=== PATIENT | male | born 1960 | race Hispanic/Latino ===

== ENCOUNTER 2021-10-04 12:28 | Inpatient (IN) | payer MEDICAID ==
[2021-10-04] MEDS ORDERED: SODIUM CHLORIDE 0.9% 1000 ML 1,000 ML IV ONE ×2 (13:07→23:12)
--- NOTE | 2021-10-04 13:10 | Emergency Department Report ---
ED Shortness of Breath HPI - General Chief Complaint: Dyspnea/Respdistress Stated Complaint: SOB Time Seen by Provider: 10/04/21 12:51 Source: EMS, old records reviewed (no previous medical record for review) Mode of arrival: Stretcher Limitations: No Limitations - History of Present Illness Initial Comments: 60-year-old male with a past medical history of hypertension, alcohol abuse, atrial fibrillation, CHF, COPD with 2 L home oxygen use hypertension, hyperlipidemia, morbid obesity, and neuropathy presents to the hospital with acute shortness of breath and respiratory distress. History obtained from EMS. States that fire department was initially at the scene for shortness of breath reports a saturation of 86% on 2 L of oxygen. Report that patient did have a long oxygen cord. Patient stayed on nonrebreather at 8 L and was satting 92% upon EMS arrival. Upon EMS arrival they report that patient was in respiratory distress but seemed to improve and was able to speak was transported to the ambulance. Upon ED arrival patient is somnolent but arousable to tactile stimulation with moderate respiratory distress. History obtained from EMS as patient is unable to provide history at this time. EMS also states they came to the home yesterday due to shortness of breath the patient did not come to the hospital at that time. patient has a right arm PICC line that seems to be out. I am unable to contact the patient's . Her numbers not available and patient cannot recall the code to unlock his phone to obtain her number. Patient placed on BiPAP shortly after ED arrival Patient also has a history of COVID and previous tracheostomy as per EMS report - Related Data Home Medications Medication Instructions Recorded Confirmed Last Taken Albuterol Sulfate [Proair 90 mcg PO PRN 10/04/21 10/04/21 Unknown Respiclick] Aspirin [Aspirin BABY CHEW TAB] 81 mg PO QDAY 10/04/21 10/04/21 Unknown AtorvaSTATin [Lipitor] 40 mg PO QHS 10/04/21 10/04/21 Unknown Gabapentin 300 mg PO BID 10/04/21 10/04/21 Unknown Losartan [Cozaar] 25 mg PO QDAY 10/04/21 10/04/21 Unknown Metoprolol Succinate [Kapspargo 200 mg PO DAILY 10/04/21 10/04/21 Unknown Sprinkle] Rivaroxaban [Xarelto] 20 mg PO DAILY 10/04/21 10/04/21 Unknown Allergies Allergy/AdvReac Type Severity Reaction Status Date / Time No Known Allergies Allergy Unverified 10/04/21 12:35 ED Review of Systems ROS: Stated complaint: SOB Other details as noted in HPI Comment: Unobtainable due to pts medical conditions ED Past Medical Hx - Past Medical History Hx Hypertension: Yes Hx Congestive Heart Failure: Yes Hx COPD: Yes Hx HIV: No Additional medical history: history of COVID - Surgical History Additional Surgical History: Tracheostomy - Social History Smoking Status: Current Every Day Smoker - Medications Home Medications: Home Medications Medication Instructions Recorded Confirmed Last Taken Type Albuterol Sulfate [Proair 90 mcg PO PRN 10/04/21 10/04/21 Unknown History Respiclick] Aspirin [Aspirin BABY CHEW TAB] 81 mg PO QDAY 10/04/21 10/04/21 Unknown History AtorvaSTATin [Lipitor] 40 mg PO QHS 10/04/21 10/04/21 Unknown History Gabapentin 300 mg PO BID 10/04/21 10/04/21 Unknown History Losartan [Cozaar] 25 mg PO QDAY 10/04/21 10/04/21 Unknown History Metoprolol Succinate [[place] 200 mg PO DAILY 10/04/21 10/04/21 Unknown History Sprinkle] Rivaroxaban [Xarelto] 20 mg PO DAILY 10/04/21 10/04/21 Unknown History ED Physical Exam - General Limitations: No Limitations - Other Other exam information: General: Moderate distress, morbidly obese Head: Atraumatic Eyes: normal appearance ENT: Moist mucous membranes Neck: Normal appearance, no midline tenderness Chest: Tachypnea, no wheezes or rales CV: Irregular rhythm Abdomen: Soft, normal bowel sounds, nontender, nondistended, no rebound or guarding Back: Normal inspection Extremity: Bilateral edema with bilateral lower extremity bandages, bandages removed, pt with b/l lower extremity cellulitis with significant pitting edema. Patient has ulcerations between all of his toes on the right foot. Left great toe is infected as well as a wound with swelling area to the left anterior lower leg. Sutures in place. Diffuse lower extremity erythema Neuro: Drowsy but arousable to tactile stimulation and able to speak although difficult to understand. Equal handgrip and foot dorsiflexion. Psych: Appropriate behavior ED Course Vital Signs 10/04/21 10/04/2110/04/22 12:35 12:38 12:56 Temperature 97.7 F Pulse Rate 84 86 Respiratory 14 17 19 Rate Blood Pressure 82/48 93/59 Blood Pressure 82/48 [Left] O2 Sat by Pulse 96 96 99 Oximetry 10/04/21 10/04/21 10/04/21 13:29 13:55 14:01 Temperature Pulse Rate 88 83 84 Respiratory 15 15 16 Rate Blood Pressure Blood Pressure 101/58 105/55 [Left] O2 Sat by Pulse 97 97 Oximetry 10/04/21 10/04/21 10/04/21 14:02 14:08 14:15 Temperature Pulse Rate 83 76 Respiratory 22 15 Rate Blood Pressure 105/55 98/61 Blood Pressure 98/61 [Left] O2 Sat by Pulse 97 87 Oximetry 10/04/21 10/04/21 10/04/21 14:31 14:45 15:01 Temperature Pulse Rate 84 72 85 Respiratory 13 15 15 Rate Blood Pressure 104/57 106/48 99/54 Blood Pressure [Left] O2 Sat by Pulse 94 95 97 Oximetry 10/04/21 10/04/21 10/04/21 15:15 15:31 15:45 Temperature Pulse Rate 86 82 91 H Respiratory 17 16 17 Rate Blood Pressure 96/29 109/71 157/135 Blood Pressure [Left] O2 Sat by Pulse 94 88 88 Oximetry 10/04/21 10/04/21 10/04/21 16:01 16:11 16:15 Temperature 97.6 F Pulse Rate 84 86 Respiratory 16 15 Rate Blood Pressure 157/135 99/56 Blood Pressure [Left] O2 Sat by Pulse 95 96 Oximetry 10/04/21 10/04/21 10/04/21 16:31 16:35 16:45 Temperature Pulse Rate 77 88 85 Respiratory 16 22 13 Rate Blood Pressure 143/99 110/68 105/85 Blood Pressure [Left] O2 Sat by Pulse 83 L 95 96 Oximetry 10/04/21 10/04/21 10/04/21 17:00 17:01 17:15 Temperature 96.7 F L Pulse Rate 92 H 86 Respiratory 15 17 Rate Blood Pressure 106/73 98/74 Blood Pressure [Left] O2 Sat by Pulse 90 95 Oximetry 10/04/21 10/04/21 10/04/21 17:31 17:45 18:01 Temperature Pulse Rate 77 82 84 Respiratory 13 18 16 Rate Blood Pressure 110/68 129/112 129/112 Blood Pressure [Left] O2 Sat by Pulse 93 89 88 Oximetry 10/04/21 10/04/21 10/04/21 18:15 18:31 18:45 Temperature Pulse Rate 84 86 87 Respiratory 19 15 22 Rate Blood Pressure 107/70 90/61 152/94 Blood Pressure [Left] O2 Sat by Pulse 88 87 83 L Oximetry 10/04/21 10/04/21 10/04/21 19:15 19:45 20:01 Temperature Pulse Rate 89 Respiratory 19 17 20 Rate Blood Pressure 103/79 97/55 124/39 Blood Pressure [Left] O2 Sat by Pulse 94 Oximetry 10/04/21 10/04/21 10/04/21 20:10 20:15 20:31 Temperature 94.1 F L Pulse Rate 90 84 Respiratory 24 18 21 Rate Blood Pressure 143/76 128/70 Blood Pressure 128/70 [Left] O2 Sat by Pulse 96 97 Oximetry 10/04/21 10/04/21 10/04/21 20:45 21:00 21:01 Temperature 98.3 F Pulse Rate 97 H 93 H Respiratory 19 24 Rate Blood Pressure 114/47 124/105 Blood Pressure [Left] O2 Sat by Pulse Oximetry 10/04/21 10/04/21 10/04/21 21:15 21:31 21:45 Temperature Pulse Rate 93 H 94 H 93 H Respiratory 23 15 17 Rate Blood Pressure 133/95 118/88 114/56 Blood Pressure [Left] O2 Sat by Pulse Oximetry 10/04/21 10/04/21 10/04/21 21:47 22:01 22:31 Temperature Pulse Rate 90 91 H 94 H Respiratory 22 17 19 Rate Blood Pressure 114/56 108/39 97/72 Blood Pressure [Left] O2 Sat by Pulse 90 Oximetry 10/04/21 10/04/21 10/04/21 22:45 23:01 23:15 Temperature Pulse Rate 86 88 92 H Respiratory 14 15 18 Rate Blood Pressure 95/51 84/55 93/49 Blood Pressure [Left] O2 Sat by Pulse 87 Oximetry 10/04/21 10/04/21 10/05/21 23:31 23:45 00:01 Temperature Pulse Rate 87 86 85 Respiratory 18 24 22 Rate Blood Pressure 90/44 103/60 103/52 Blood Pressure [Left] O2 Sat by Pulse 86 92 95 Oximetry - Consultations Consultation #1: 10/04/21 14:40 case d/w Dr Osorio, health and physical education professor critical care/pulmonology. Rec abg in 1 hr and to have respiratory therapist call for result. 10/04/21 17:06 re-discussed repeat abg results with DR Osorio. will contact respiratory therapist to discuss bipap settings ED Medical Decision Making - Lab Data Result diagrams: 10/05/21 05:52 10/05/21 05:52 Lab Results 10/04/21 10/04/21 10/04/21 Range/Units 12:37 13:12 13:12 WBC 13.6 H (4.5-11.0) K/mm3 RBC 3.38 L (3.65-5.03) M/mm3 Hgb 9.7 L (11.8-15.2) gm/dl Hct 30.3 L (35.5-45.6) % MCV 90 (84-94) fl MCH 29 (28-32) pg MCHC 32 (32-34) % RDW 17.4 H (13.2-15.2) % Plt Count 456 H (140-440) K/mm3 Lymph % (Auto) 11.2 L (13.4-35.0) % [place] % (Auto) 11.6 H (0.0-7.3) % Eos % (Auto) 1.2 (0.0-4.3) % Baso % (Auto) 0.8 (0.0-1.8) % Lymph # (Auto) 1.5 (1.2-5.4) K/mm3 [place] # (Auto) 1.6 H (0.0-0.8) K/mm3 Eos # (Auto) 0.2 (0.0-0.4) K/mm3 Baso # (Auto) 0.1 (0.0-0.1) K/mm3 Seg Neutrophils % 75.2 H (40.0-70.0) % Seg Neutrophils # 10.2 H (1.8-7.7) K/mm3 PT 40.7 H (12.2-14.9) Sec. INR 3.58 H (0.87-1.13) APTT 43.9 H (24.2-36.6) Sec. ABG pH (7.350-7.450) pH Units ABG pCO2 mm Hg ABG pO2 (80.0-90.0) mm Hg ABG HCO3 (20.0-26.0) mmol/L ABG O2 Saturation (95.0-99.0) % ABG O2 Content (0.0-44) ABG Base Excess (-2.0-3.0) mmol/L ABG Hemoglobin (14.0-18.0) gm/dl ABG Carboxyhemoglobin (0.0-5.0) % ABG Methemoglobin (0.0-1.5) % Oxyhemoglobin (95.0-99.0) % FiO2 % Sodium (137-145) mmol/L Potassium (3.6-5.0) mmol/L Chloride (98-107) mmol/L Carbon Dioxide (22-30) mmol/L Anion Gap mmol/L BUN (9-20) mg/dL Creatinine (0.8-1.3) mg/dL Estimated GFR ml/min BUN/Creatinine Ratio % Glucose (75-100) mg/dL POC Glucose 112 H (70-105) mg/dL Calcium (8.4-10.2) mg/dL Magnesium (1.7-2.3) mg/dL Total Bilirubin (0.1-1.2) mg/dL AST (5-40) units/L ALT (7-56) units/L Alkaline Phosphatase (35-129) units/L Troponin T (0.00-0.029) ng/mL NT-Pro-B Natriuret Pep (0-900) pg/mL Total Protein (6.3-8.2) g/dL Albumin (3.9-5) g/dL Albumin/Globulin Ratio % Triglycerides (2-149) mg/dL Cholesterol (50-199) mg/dL LDL Cholesterol Direct (50-130) mg/dL HDL Cholesterol (40-59) mg/dL Cholesterol/HDL Ratio % 10/04/21 10/04/21 10/04/21 Range/Units 13:12 13:12 13:35 WBC (4.5-11.0) K/mm3 RBC (3.65-5.03) M/mm3 Hgb (11.8-15.2) gm/dl Hct (35.5-45.6) % MCV (84-94) fl MCH (28-32) pg MCHC (32-34) % RDW (13.2-15.2) % Plt Count (140-440) K/mm3 Lymph % (Auto) (13.4-35.0) % [place] % (Auto) (0.0-7.3) % Eos % (Auto) (0.0-4.3) % Baso % (Auto) (0.0-1.8) % Lymph # (Auto) (1.2-5.4) K/mm3 [place] # (Auto) (0.0-0.8) K/mm3 Eos # (Auto) (0.0-0.4) K/mm3 Baso # (Auto) (0.0-0.1) K/mm3 Seg Neutrophils % (40.0-70.0) % Seg Neutrophils # (1.8-7.7) K/mm3 PT (12.2-14.9) Sec. INR (0.87-1.13) APTT (24.2-36.6) Sec. ABG pH 7.254 L (7.350-7.450) pH Units ABG pCO2 66.8 mm Hg ABG pO2 87.6 (80.0-90.0) mm Hg ABG HCO3 28.9 H (20.0-26.0) mmol/L ABG O2 Saturation 95.8 (95.0-99.0) % ABG O2 Content 12.9 (0.0-44) ABG Base Excess 0.8 (-2.0-3.0) mmol/L ABG Hemoglobin 9.7 L (14.0-18.0) gm/dl ABG Carboxyhemoglobin 2.0 (0.0-5.0) % ABG Methemoglobin 0.4 (0.0-1.5) % Oxyhemoglobin 93.5 L (95.0-99.0) % FiO2 35 % Sodium 135 L (137-145) mmol/L Potassium 4.9 (3.6-5.0) mmol/L Chloride 95.6 L (98-107) mmol/L Carbon Dioxide 26 (22-30) mmol/L Anion Gap 18 mmol/L BUN 56 H (9-20) mg/dL Creatinine 2.1 H (0.8-1.3) mg/dL Estimated GFR 31 ml/min BUN/Creatinine Ratio 25 % Glucose 107 H (75-100) mg/dL POC Glucose (70-105) mg/dL Calcium 8.8 (8.4-10.2) mg/dL Magnesium 2.50 H (1.7-2.3) mg/dL Total Bilirubin 0.50 (0.1-1.2) mg/dL AST 31 (5-40) units/L ALT 25 (7-56) units/L Alkaline Phosphatase 117 (35-129) units/L Troponin T 0.030 H (0.00-0.029) ng/mL NT-Pro-B Natriuret Pep 9268 H (0-900) pg/mL Total Protein 7.9 (6.3-8.2) g/dL Albumin 3.4 L (3.9-5) g/dL Albumin/Globulin Ratio 0.8 % Triglycerides 97 (2-149) mg/dL Cholesterol 100 (50-199) mg/dL LDL Cholesterol Direct 47 L (50-130) mg/dL HDL Cholesterol 38 L (40-59) mg/dL Cholesterol/HDL Ratio 2.63 % - EKG Data -: EKG Interpreted by Me (atrial fibrillation) EKG shows normal: ST-T waves (no stemi) Rate: normal (75) - EKG Data When compared to previous EKG there are: previous EKG unavailable - Radiology Data Radiology results: report reviewed CHEST 1 VIEW 10/04/2021 12:16 PM INDICATION / CLINICAL INFORMATION: Shortness of breath. COMPARISON: None available. FINDINGS: SUPPORT DEVICES: None. HEART / MEDIASTINUM: Moderate cardiomegaly. LUNGS / PLEURA: Mild pulmonary vascular congestion. No pneumothorax. ADDITIONAL FINDINGS: No significant additional findings. IMPRESSION: 1. Findings probably indicating mild CHF as described. - Medical Decision Making 60-year male presents to the hospital with decreased mental status and respiratory distress. Patient placed on BiPAP upon ED arrival. ABG performed shortly after being placed on BiPAP confirmed respiratory acidosis with CO2 retention likely the cause of alteration in mental status. Initial BiPAP settings were 16/8 at 35% which were increased to 20/8 at 35% after ABG result. Case isadora with Dr. Osorio cargo and container inspector who requested repeat ABG and will discuss with respiratory therapist. Vancomycin ordered empirically for bilateral lower extremity cellulitis with possible osteomyelitis until additional collateral information can be obtained regarding reason for PICC line and current IV meds administered at home. Patient's blood pressure improved with 500 mL bolus of normal saline therefore discontinued given signs of CHF on chest x-ray. Renal insufficiency noted with elevated BUN with unknown baseline. Mild troponin elevation noted without signs of ST elevation could be secondary to underlying renal insufficiency. Repeat pending. Case discussed with the hospitalist Dr Ledezma for admission Critical Care Time: Yes Critical care time in (mins) excluding proc time.: 40 Critical care attestation.: If time is entered above; I have spent that time in minutes in the direct care of this critically ill patient, excluding procedure time. Critical Care Time: 40 Minutes of critical care time excluding procedures were used in the care of the patient. I came immediately to the bedside upon patient's arrival. I obtained history from EMS at the bedside. I discussed treatment plan with the nursing team members. I reviewed electronic record. I Patient required multiple interventions and reassessments. Spoke with hospitalist and consultants for collaborative care ED Disposition Clinical Impression: Acute respiratory failure with hypoxia and hypercapnia, Pulmonary edema, Renal insufficiency, Chronic atrial fibrillation, Supratherapeutic INR, Bilateral lower leg cellulitis Disposition: ADMITTED INPATIENT Is pt being admited?: Yes Condition: Stable Time of Disposition: 14:46
[2021-10-04 13:15] LABS: Basophils # (Auto) 0.1 K/mm3 (0.0-0.1); Basophils % (Auto) 0.8 % (0.0-1.8); Eosinophils # (Auto) 0.2 K/mm3 (0.0-0.4); Eosinophils % (Auto) 1.2 % (0.0-4.3); Hematocrit 30.3 % (35.5-45.6); Hemoglobin 9.7 gm/dl (11.8-15.2); Lymphocytes # (Auto) 1.5 K/mm3 (1.2-5.4); Lymphocytes % (Auto) 11.2 % (13.4-35.0); Mean Corpuscular HGB Conc 32 % (32-34); Mean Corpuscular Volume 90 fl (84-94); Monocytes # (Auto) 1.6 K/mm3 (0.0-0.8); Monocytes % (Auto) 11.6 % (0.0-7.3); Platelet Count 456 K/mm3 (140-440); Red Blood Count 3.38 M/mm3 (3.65-5.03); Red Cell Distribution Width 17.4 % (13.2-15.2)
--- NOTE | 2021-10-04 13:25 | XRay Report ---
CHEST 1 VIEW 10/04/2021 12:16 PM INDICATION / CLINICAL INFORMATION: Shortness of breath. COMPARISON: None available. FINDINGS: SUPPORT DEVICES: None. HEART / MEDIASTINUM: Moderate cardiomegaly. LUNGS / PLEURA: Mild pulmonary vascular congestion. No pneumothorax. ADDITIONAL FINDINGS: No significant additional findings. IMPRESSION: 1. Findings probably indicating mild CHF as described. Signer Name: Ian Lopez MD Signed: 10/04/2021 1:21 PM Workstation Name: [id number]
[2021-10-04 13:27] LABS: INR 3.58 (0.87-1.13); Partial Thromboplastin Time 43.9 Sec. (24.2-36.6)
[2021-10-04 13:50] LABS: ABG Base Excess 0.8 mmol/L (-2.0-3.0); ABG HCO3 28.9 mmol/L (20.0-26.0); ABG Methemoglobin 0.4 % (0.0-1.5); ABG Oxygen Saturation 95.8 % (95.0-99.0); ABG PCO2 66.8 mm Hg; ABG PH 7.254 pH Units (7.350-7.450); ABG PO2 87.6 mm Hg (80.0-90.0)
[2021-10-04 13:58] LABS: Albumin 3.4 g/dL (3.9-5); Calcium 8.8 mg/dL (8.4-10.2)
[2021-10-04 14:09] LABS: Chol/HDL Ratio 2.63 %
[2021-10-04] MEDS ORDERED: VANCOMYCIN 2,000 MG in SODIUM CHLORIDE 0.9% 500 ML 500 ML IV ONE (15:00)
[2021-10-04 16:53] LABS: ABG Base Excess 1.6 mmol/L (-2.0-3.0); ABG HCO3 29.7 mmol/L (20.0-26.0); ABG Methemoglobin 0.4 % (0.0-1.5); ABG Oxygen Saturation 96.8 % (95.0-99.0); ABG PCO2 67.7 mm Hg; ABG PH 7.26 pH Units (7.350-7.450); ABG PO2 97.1 mm Hg (80.0-90.0)
--- NOTE | 2021-10-04 20:19 | History and Physical Report ---
History of Present Illness Date of examination: 10/04/21 Date of admission: 10/04/2021 Chief complaint: Increasing shortness of breath over the last 3 days History of present illness: 60-year-old male who is morbidly obese with history of atrial fibrillation congestive heart failure, COPD with 2 L home oxygen use, hypertension and neuropathy comes in for acute shortness of breath and respiratory distress. As per EMS patient was very hypoxic at the time of arrival. Patient had oxygen saturation of 86% on 2 L nasal cannula. Patient was put on a nonrebreather at 8 L and was satting at 92% upon EMS arrival. As per EMS patient was in severe respiratory distress and improved slightly with oxygen. Patient called EMS yesterday also but refused to come to the ER. Patient has a right arm PICC line not in place properly. Patient was placed on BiPAP before emergency room arrival. No fever or chills. Cough productive of mucoid sputum. Shortness of breath on minimal exertion. Patient has class IV NYHA symptoms. Patient is vaccinated. - Past Medical History --Hypertension: Yes --Congestive Heart Failure: Yes --COPD: Yes --Additional medical history: history of COVID - Surgical History Additional Surgical History: Tracheostomy - Social History Smoking Status: Current Every Day Smoker Review of Systems ROS: Stated complaint: SOB Other details as noted in HPI Comment: Unobtainable due to pts medical conditions Medications and Allergies Allergies Allergy/AdvReac Type Severity Reaction Status Date / Time No Known Allergies Allergy Unverified 10/04/21 12:35 Home Medications Medication Instructions Recorded Confirmed Last Taken Type Albuterol Sulfate [Proair 90 mcg PO PRN 10/04/21 10/04/21 Unknown History Respiclick] Aspirin [Aspirin BABY CHEW TAB] 81 mg PO QDAY 10/04/21 10/04/21 Unknown History AtorvaSTATin [Lipitor] 40 mg PO QHS 10/04/21 10/04/21 Unknown History Gabapentin [Neurontin] 300 mg PO BID 10/04/21 10/04/21 Unknown History Losartan [Cozaar] 25 mg PO QDAY 10/04/21 10/04/21 Unknown History Metoprolol Succinate [Kapspargo 200 mg PO DAILY 10/04/21 10/04/21 Unknown History Sprinkle] Rivaroxaban [Xarelto] 20 mg PO DAILY 10/04/21 10/04/21 Unknown History Exam - Constitutional Vitals: Temp Pulse Resp BP Pulse Ox 96.7 F L 87 22 152/94 83 L 10/04/21 17:00 10/04/21 18:45 10/04/21 18:45 10/04/21 18:45 10/04/21 18:45 General appearance: Present: severe distress, well-nourished - EENT Eyes: Present: PERRL ENT: hearing intact, clear oral mucosa - Neck Neck: Present: supple, normal ROM - Respiratory Respiratory effort: normal Respiratory: bilateral: diminished, rales, rhonchi - Cardiovascular Heart rate: 98 Rhythm: regular Heart Sounds: Present: S1 & S2. Absent: rub, click - Extremities Extremities: pulses symmetrical, No edema Peripheral Pulses: within normal limits - Abdominal General gastrointestinal: Present: soft, non-tender, non-distended, normal bowel sounds Male genitourinary: Present: normal - Integumentary Integumentary: Present: clear, warm, dry - Musculoskeletal Musculoskeletal: gait normal, strength equal bilaterally - Psychiatric Psychiatric: appropriate mood/affect, intact judgment & insight - Neurologic Neurologic: CNII-XII intact, moves all extremities - Allied Health Allied health notes reviewed: nursing, RT, social work, case management HEART Score - HEART Score History: Highly suspicious Risk factors: > 3 risk factors or hx of atherosclerotic disease Troponin: Troponin T 0.021 ng/mL (0.00-0.029) 10/04/21 15:49 Troponin: 1-3x normal limit - Critical Actions Critical Actions: 4-6 pts:12-16.6% risk of adverse cardiac event. Should be admitted Results - Labs CBC & Chem 7: 10/04/21 13:12 10/04/21 13:12 Labs: Laboratory Last Values WBC 13.6 K/mm3 (4.5-11.0) H 10/04/21 13:12 RBC 3.38 M/mm3 (3.65-5.03) L 10/04/21 13:12 Hgb 9.7 gm/dl (11.8-15.2) L 10/04/21 13:12 Hct 30.3 % (35.5-45.6) L 10/04/21 13:12 MCV 90 fl (84-94) 10/04/21 13:12 MCH 29 pg (28-32) 10/04/21 13:12 MCHC 32 % (32-34) 10/04/21 13:12 RDW 17.4 % (13.2-15.2) H 10/04/21 13:12 Plt Count 456 K/mm3 (140-440) H 10/04/21 13:12 Lymph % (Auto) 11.2 % (13.4-35.0) L 10/04/21 13:12 [place] % (Auto) 11.6 % (0.0-7.3) H 10/04/21 13:12 Eos % (Auto) 1.2 % (0.0-4.3) 10/04/21 13:12 Baso % (Auto) 0.8 % (0.0-1.8) 10/04/21 13:12 Lymph # (Auto) 1.5 K/mm3 (1.2-5.4) 10/04/21 13:12 [place] # (Auto) 1.6 K/mm3 (0.0-0.8) H 10/04/21 13:12 Eos # (Auto) 0.2 K/mm3 (0.0-0.4) 10/04/21 13:12 Baso # (Auto) 0.1 K/mm3 (0.0-0.1) 10/04/21 13:12 Seg Neutrophils % 75.2 % (40.0-70.0) H 10/04/21 13:12 Seg Neutrophils # 10.2 K/mm3 (1.8-7.7) H 10/04/21 13:12 PT 40.7 Sec. (12.2-14.9) H 10/04/21 13:12 INR 3.58 (0.87-1.13) H 10/04/21 13:12 APTT 43.9 Sec. (24.2-36.6) H 10/04/21 13:12 ABG pH 7.260 pH Units (7.350-7.450) L 10/04/21 16:30 ABG pCO2 67.7 mm Hg 10/04/21 16:30 ABG pO2 97.1 mm Hg (80.0-90.0) H 10/04/21 16:30 ABG HCO3 29.7 mmol/L (20.0-26.0) H 10/04/21 16:30 ABG O2 Saturation 96.8 % (95.0-99.0) 10/04/21 16:30 ABG O2 Content 12.9 (0.0-44) 10/04/21 16:30 ABG Base Excess 1.6 mmol/L (-2.0-3.0) 10/04/21 16:30 ABG Hemoglobin 9.5 gm/dl (14.0-18.0) L 10/04/21 16:30 ABG Carboxyhemoglobin 1.9 % (0.0-5.0) 10/04/21 16:30 ABG Methemoglobin 0.4 % (0.0-1.5) 10/04/21 16:30 Oxyhemoglobin 94.6 % (95.0-99.0) L 10/04/21 16:30 FiO2 35 % 10/04/21 16:30 Sodium 135 mmol/L (137-145) L 10/04/21 13:12 Potassium 4.9 mmol/L (3.6-5.0) 10/04/21 13:12 Chloride 95.6 mmol/L (98-107) L 10/04/21 13:12 Carbon Dioxide 26 mmol/L (22-30) 10/04/21 13:12 Anion Gap 18 mmol/L 10/04/21 13:12 BUN 56 mg/dL (9-20) H 10/04/21 13:12 Creatinine 2.1 mg/dL (0.8-1.3) H 10/04/21 13:12 Estimated GFR 31 ml/min 10/04/21 13:12 BUN/Creatinine Ratio 25 % 10/04/21 13:12 Glucose 107 mg/dL (75-100) H 10/04/21 13:12 POC Glucose 112 mg/dL (70-105) H 10/04/21 12:37 Calcium 8.8 mg/dL (8.4-10.2) 10/04/21 13:12 Magnesium 2.50 mg/dL (1.7-2.3) H 10/04/21 13:12 Total Bilirubin 0.50 mg/dL (0.1-1.2) 10/04/21 13:12 AST 31 units/L (5-40) 10/04/21 13:12 ALT 25 units/L (7-56) 10/04/21 13:12 Alkaline Phosphatase 117 units/L (35-129) 10/04/21 13:12 Troponin T 0.021 ng/mL (0.00-0.029) 10/04/21 15:49 NT-Pro-B Natriuret Pep 9268 pg/mL (0-900) H 10/04/21 13:12 Total Protein 7.9 g/dL (6.3-8.2) 10/04/21 13:12 Albumin 3.4 g/dL (3.9-5) L 10/04/21 13:12 Albumin/Globulin Ratio 0.8 % 10/04/21 13:12 Triglycerides 97 mg/dL (2-149) 10/04/21 13:12 Cholesterol 100 mg/dL (50-199) 10/04/21 13:12 LDL Cholesterol Direct 47 mg/dL (50-130) L 10/04/21 13:12 HDL Cholesterol 38 mg/dL (40-59) L 10/04/21 13:12 Cholesterol/HDL Ratio 2.63 % 10/04/21 13:12 Short CBC 10/04/21 Range/Units 13:12 WBC 13.6 H (4.5-11.0) K/mm3 Hgb 9.7 L (11.8-15.2) gm/dl Hct 30.3 L (35.5-45.6) % Plt Count 456 H (140-440) K/mm3 BMP 10/04/21 13:12 Sodium 135 L Potassium 4.9 Chloride 95.6 L Carbon Dioxide 26 BUN 56 H Creatinine 2.1 H Glucose 107 H Calcium 8.8 Cardiac Enzymes 10/04/21 10/04/21 10/04/21 Range/Units 13:12 15:49 21:06 Troponin T 0.030 H 0.021 0.026 (0.00-0.029) ng/mL Liver Function 10/04/21 Range/Units 13:12 Total Bilirubin 0.50 (0.1-1.2) mg/dL AST 31 (5-40) units/L ALT 25 (7-56) units/L Alkaline Phosphatase 117 (35-129) units/L Albumin 3.4 L (3.9-5) g/dL Microbiology: Microbiology 10/04/21 15:49 Peripheral/Venous Blood Culture - Preliminary Culture in Progress 10/04/21 16:39 Peripheral/Venous Blood Culture - Preliminary Culture in Progress - Imaging and Cardiology EKG: report reviewed (Atrial fibrillation with heart rate of 75/min.no acute ST- T wave changes) Chest x-ray: report reviewed Imaging and Cardiology: Chest x-ray Findings probably indicating mild CHF as described. Mild pulmonary vascular congestion. Assessment and Plan Advance Directives: Yes (Full code) VTE prophylaxis?: Chemical Plan of care discussed with patient/family: Yes - Patient Problems (1) Acute respiratory failure with hypoxia and hypercapnia Current Visit: Yes Status: Acute Plan to address problem: Patient has chronic respiratory failure and and is on home oxygen of 2 L. #1 acute respiratory failure with hypoxia and hypercarbia. His ABG significant for pH of 7.254 and bicarb and CO2 of 66.8 and PO2 of 87.6. Patient initiated on IV Solu-Medrol, IV antibiotics and duo nebs [id number] and as needed Also Pulmicort. Pulmonary consult requested. (2) Acute exacerbation of chronic obstructive pulmonary disease (COPD) Current Visit: Yes Status: Acute Plan to address problem: Patient on IV antibiotics IV Solu-Medrol and duo nebs [id number] and Pulmicort. (3) CHF (congestive heart failure) Current Visit: Yes Status: Acute Qualifiers: Heart failure type: combined systolic and diastolic Plan to address problem: Patient initiated on Lasix and Aldactone. Echocardiogram requested for ejection fraction and valve function and wall motion abnormality. Cardiology consult requested. Daily weights and intake and output. (4) Morbid obesity with BMI of 40.0-44.9, adult Current Visit: Yes Status: Chronic Plan to address problem: Patient needs to see the bariatric surgeon Patient will be given referral to Dr. Evans who is a bariatric surgeon in this hospital (5) Hypertension Current Visit: Yes Status: Chronic Qualifiers: Hypertension type: primary hypertension Qualified Code(s): I10 - Essential (primary) hypertension Plan to address problem: Continue antihypertensives (6) Atrial fibrillation Current Visit: Yes Status: Chronic Qualifiers: Atrial fibrillation type: persistent (not longstanding) Qualified Code(s): I48.19 - Other persistent atrial fibrillation; I48.1 - Persistent atrial fibrillation Plan to address problem: Rate controlled Patient on Xarelto Medications reconciled (7) Anemia Current Visit: Yes Status: Chronic Qualifiers: Anemia type: unspecified type Qualified Code(s): D64.9 - Anemia, unspecified Plan to address problem: Anemia work-up requested (8) DVT prophylaxis Current Visit: Yes Status: Acute Plan to address problem: On anticoagulation and GI prophylaxis. (9) Advance care planning Current Visit: Yes Status: Acute Plan to address problem: Disease education conducted, care plan discussed, diagnosis discussed, prognosis discussed. Patient is full code. Patient acknowledged understanding and agreement with care plan. +30 minutes.
[2021-10-04] MEDS ORDERED: ACETAMINOPHEN 325 MG TAB PO PRN (20:23)
[2021-10-04] MEDS ORDERED: ONDANSETRON 4 MG/2 ML INJ IV PRN (20:23)
[2021-10-04] MEDS ORDERED: IBUPROFEN 600 MG TAB PO PRN (20:24)
[2021-10-04] MEDS ORDERED: METOCLOPRAMIDE 10 MG/2 ML INJ IV PRN (20:24)
[2021-10-04] MEDS ORDERED: HYDROmorphone 0.5 MG/0.5 ML INJ IV PRN (20:24)
[2021-10-04] MEDS ORDERED: IPRATROPIUM/ALBUTEROL SULFATE 3 ML AMPUL.NEB IH PRN (20:26)
[2021-10-04] MEDS ORDERED: SODIUM CHLORIDE 0.9% 1000 ML 1,000 ML IV SCH (20:30)
[2021-10-04] MEDS ORDERED: NON-FORMULARY EACH (Rivaroxaban 20 MG Tablet) PO SCH (20:30)
[2021-10-04] MEDS ORDERED: METOPROLOL SUCCINATE 200 MG PO SCH (20:30)
[2021-10-04] MEDS ORDERED: NON-FORMULARY EACH (Albuterol Sulfate [Proair Respiclick] 90 MCG Aer.Pow.Ba) PO SCH (20:30)
[2021-10-04] MEDS ORDERED: ALBUTEROL 2.5 MG/3 ML NEBU IH PRN (20:32)
[2021-10-04] MEDS ORDERED: AZITHROMYCIN/NS 500 MG/250 ML 500 MG/250 ML BAG IV SCH (21:00)
[2021-10-04] MEDS: GABAPENTIN 300 MG CAP PO SCH (22:08)
[2021-10-04] MEDS: cefTRIAXone/NS 2 GM/100 ML 2 GM/100 ML BAG IV SCH (22:09)
[2021-10-04] MEDS: ASPIRIN 81 MG TAB CHEW PO SCH (22:09)
[2021-10-04] MEDS: methylPREDNISolone Sod Succinate 125 MG/2 ML INJ IV SCH (22:10)
[2021-10-04] MEDS: HEPARIN 5,000 UNIT/1 ML VIAL SUB-Q SCH (22:10)
[2021-10-04] MEDS ORDERED: NALOXONE 2 MG/2 ML INJ ONE (22:18)
[2021-10-04] MEDS: METOPROLOL SUCCINATE XL 100 MG TAB PO SCH (22:34)
[2021-10-04] MEDS: LOSARTAN 25 MG TAB PO SCH (22:34)
[2021-10-04] MEDS ORDERED: SODIUM CHLORIDE 0.9% 500 ML 500 ML ONE ×2 (23:00→23:16)
[2021-10-05] MEDS: methylPREDNISolone Sod Succinate 125 MG/2 ML INJ IV SCH ×3 (05:57→21:49)
[2021-10-05] MEDS ORDERED: FUROSEMIDE 40 MG/4 ML INJ IV SCH (06:00)
[2021-10-05 06:41] LABS: Hematocrit 28.1 % (35.5-45.6); Hemoglobin 9.2 gm/dl (11.8-15.2); Mean Corpuscular HGB Conc 33 % (32-34); Mean Corpuscular Volume 89 fl (84-94); Platelet Count 409 K/mm3 (140-440); Red Blood Count 3.15 M/mm3 (3.65-5.03); Red Cell Distribution Width 17.2 % (13.2-15.2)
[2021-10-05 06:50] LABS: Albumin 3.1 g/dL (3.9-5); Calcium 8.7 mg/dL (8.4-10.2)
[2021-10-05] MEDS: IPRATROPIUM/ALBUTEROL SULFATE 3 ML AMPUL.NEB IH SCH ×4 (08:20→21:07)
[2021-10-05 08:23] LABS: % Iron Saturation 5.9 %
[2021-10-05] MEDS ORDERED: SPIRONOLACTONE 25 MG TAB PO SCH (10:00)
--- NOTE | 2021-10-05 10:15 | Consultation ---
History of Present Illness - Reason for Consult Consult date: 10/05/21 acute renal failure - History of Present Illness RFC: REECE, Unknown CKD, Hyperkalemia HPI: 60-year-old male who is morbidly obese with history of atrial fibrillation congestive heart failure, COPD with 2 L home oxygen use, hypertension and neuropathy admitted with SHOB and hypoxia. Pt has also had cough. No fever or chills. His Cr and K are high. ROS: As in HPI otherwise 12 point review of systems -ve - Past Medical History --Hypertension: Yes --Congestive Heart Failure: Yes --COPD: Yes --Additional medical history: history of COVID - Surgical History Additional Surgical History: Tracheostomy - Social History Smoking Status: Current Every Day Smoker Medications and Allergies Allergies Allergy/AdvReac Type Severity Reaction Status Date / Time No Known Allergies Allergy Unverified 10/04/21 12:35 Home Medications Medication Instructions Recorded Confirmed Last Taken Type Albuterol Sulfate [Proair 90 mcg PO PRN 10/04/21 10/04/21 Unknown History Respiclick] Aspirin [Aspirin BABY CHEW TAB] 81 mg PO QDAY 10/04/21 10/04/21 Unknown History AtorvaSTATin [Lipitor] 40 mg PO QHS 10/04/21 10/04/21 Unknown History Gabapentin [Neurontin] 300 mg PO BID 10/04/21 10/04/21 Unknown History Losartan [Cozaar] 25 mg PO QDAY 10/04/21 10/04/21 Unknown History Metoprolol Succinate [Kapspargo 200 mg PO DAILY 10/04/21 10/04/21 Unknown History Sprinkle] Rivaroxaban [Xarelto] 20 mg PO DAILY 10/04/21 10/04/21 Unknown History Active Meds: Active Medications Acetaminophen (Acetaminophen 325 Mg Tab) 650 mg PO Q4H PRN PRN Reason: Pain MILD(1-3)/Fever >100.5/CURTIS Albuterol (Albuterol 2.5 Mg/3 Ml Nebu) 2.5 mg IH Q4HRT PRN PRN Reason: Shortness Of Breath Albuterol/Ipratropium (Ipratropium/Albuterol Sulfate 3 Ml Ampul.Neb) 1 ampul IH QIDRT [facility] Last Admin: 10/05/21 08:20 Dose: 1 ampul Aspirin (Aspirin 81 Mg Tab Chew) 81 mg PO QDAY [facility] Last Admin: 10/04/21 22:09 Dose: 81 mg Atorvastatin Calcium (Atorvastatin 40 Mg Tab) 40 mg PO QHS [facility] Last Admin: 10/04/21 22:33 Dose: 40 mg Azithromycin (Azithromycin 250 Mg Tab) 500 mg PO Q24H [facility]; Protocol Stop: 10/08/21 22:01 Furosemide (Furosemide 40 Mg/4 Ml Inj) 40 mg IV 0600 [facility] Last Admin: 10/05/21 05:58 Dose: 40 mg Gabapentin (Gabapentin 300 Mg Cap) 300 mg PO BID [facility] Last Admin: 10/04/21 22:08 Dose: 300 mg Heparin Sodium (Porcine) (Heparin 5,000 Unit/1 Ml Vial) 5,000 unit SUB-Q Q12HR [facility] Last Admin: 10/04/21 22:10 Dose: 5,000 unit Hydromorphone HCl (Hydromorphone 0.5 Mg/0.5 Ml Inj) 0.5 mg IV Q3H PRN PRN Reason: Pain , Severe (7-10) Ceftriaxone Sodium (Rocephin/Ns 2 Gm/100 Ml) 2 gm in 100 mls @ 200 mls/hr IV Q24H [facility]; Protocol Last Admin: 10/04/21 22:09 Dose: 200 mls/hr Ibuprofen (Ibuprofen 600 Mg Tab) 600 mg PO Q6H PRN PRN Reason: Pain, Mild (1-3) Losartan Potassium (Losartan 25 Mg Tab) 25 mg PO QDAY [facility] Last Admin: 10/04/21 22:34 Dose: Not Given Methylprednisolone Sodium Succinate (Methylprednisolone Sod Succinate 125 Mg/2 Ml Inj) 80 mg IV Q8H [facility] Last Admin: 10/05/21 05:57 Dose: 80 mg Metoclopramide HCl (Metoclopramide 10 Mg/2 Ml Inj) 10 mg IV Q6H PRN PRN Reason: Nausea And Vomiting Metoprolol Succinate (Metoprolol Succinate Xl 100 Mg Tab) 200 mg PO QDAY [facility] Last Admin: 10/04/21 22:34 Dose: Not Given Morphine Sulfate (Morphine 2 Mg/1 Ml Inj) 2 mg IV Q4H PRN PRN Reason: Pain, Moderate (4-6) Ondansetron HCl (Ondansetron 4 Mg/2 Ml Inj) 4 mg IV Q3H PRN PRN Reason: Nausea And Vomiting Oxycodone/Acetaminophen (Oxycodone /Acetaminophen 5-325mg Tab) 1 tab PO Q6H PRN PRN Reason: Pain, Moderate (4-6) Sodium Chloride (Sodium Chloride 0.9% 10 Ml Flush Syringe) 10 ml IV BID [facility] Last Admin: 10/04/21 22:34 Dose: 10 ml Sodium Chloride (Sodium Chloride 0.9% 10 Ml Flush Syringe) 10 ml IV PRN PRN PRN Reason: LINE FLUSH Spironolactone (Spironolactone 25 Mg Tab) 25 mg PO QAM [facility] Exam - Vital Signs Vital signs: Vital Signs Pulse Resp BP Pulse Ox 84 14 82/48 96 10/04/21 12:35 10/04/21 12:35 10/04/21 12:35 10/04/21 12:35 - Physical Exam Narrative exam: General appearance: Present: severe distress, well-nourished - EENT Eyes: Present: PERRL ENT: hearing intact, clear oral mucosa - Neck Neck: Present: supple, normal ROM - Respiratory Respiratory effort: normal Respiratory: bilateral: diminished, rales, rhonchi - Cardiovascular Heart rate: 98 Rhythm: regular Heart Sounds: Present: S1 & S2. Absent: rub, click - Extremities Extremities: pulses symmetrical, No edema Peripheral Pulses: within normal limits - Abdominal General gastrointestinal: Present: soft, non-tender, non-distended, normal bowel sounds Male genitourinary: Present: normal - Integumentary Integumentary: Present: clear, warm, dry - Musculoskeletal Musculoskeletal: gait normal, strength equal bilaterally - Psychiatric Psychiatric: appropriate mood/affect, intact judgment & insight - Neurologic Neurologic: CNII-XII intact, moves all extremities - Allied Health Allied health notes reviewed: nursing, RT, social work, case management Results - Lab Results 10/05/21 05:52 10/05/21 05:52 Most recent lab results ABG pH 7.260 pH Units (7.350-7.450) L 10/04/21 16:30 ABG pCO2 67.7 mm Hg 10/04/21 16:30 ABG pO2 97.1 mm Hg (80.0-90.0) H 10/04/21 16:30 ABG HCO3 29.7 mmol/L (20.0-26.0) H 10/04/21 16:30 ABG O2 Saturation 96.8 % (95.0-99.0) 10/04/21 16:30 Calcium 8.7 mg/dL (8.4-10.2) 10/05/21 05:52 Magnesium 2.50 mg/dL (1.7-2.3) H 10/04/21 13:12 Assessment and Plan Acute Kidney injury, Unknown CKD Hyperkalemia Acute hypoxic respiratory failure Acute CHF HTN Obesity Anemia Afib -Check Urine studies, CK level, Renal US -No BL Cr available so unknown if has CKD or not -Kayxelate ordered for high K, low K diet -Inc lasix to 40 mg q8H IV, CXR congested -Strict I/Os -Renally dose all meds -Avoid Nephrotoxic meds -Hold Aldactone for now due to renal failure/hyperkalemia -Check Iron panel for ACD and PTH for 2HPT as signs of possible CKD
[2021-10-05] MEDS: ASPIRIN 81 MG TAB CHEW PO SCH (10:41)
[2021-10-05] MEDS: GABAPENTIN 300 MG CAP PO SCH ×2 (10:42→21:47)
[2021-10-05] MEDS: LOSARTAN 25 MG TAB PO SCH (10:42)
[2021-10-05] MEDS: HEPARIN 5,000 UNIT/1 ML VIAL SUB-Q SCH ×2 (10:43→21:48)
[2021-10-05] MEDS: METOPROLOL SUCCINATE XL 100 MG TAB PO SCH (10:43)
[2021-10-05] MEDS: oxyCODONE /ACETAMINOPHEN 5-325MG TAB PO PRN ×2 (11:59→22:06)
--- NOTE | 2021-10-05 12:10 | Consultation ---
History of Present Illness Consult date: 10/05/21 Requesting physician: LUL JAY Reason for consult: hypoxemia, obstructive sleep apnea History of present illness: 60 y/o male with known SUNIL and COPD per patient just saw Keisha on Thursday admitted with altered mental state and hypoxic respirator failure requiring bipap. Now weaned down to 3 liters and awake and alert. Per patient, he always goes to [facility] and was discharged secondary to an infection requiring IV abx therapy at home ( he has a picc line). Patient will not let me speak much and just keeps saying "I've got a lot of shit going on with me and I need yall to figure it out, plus this shit here (points at food) isn't going to work, I'm starving". Past History Past Medical History: COPD, other (SUNIL, Obesity) Medications and Allergies Allergies Allergy/AdvReac Type Severity Reaction Status Date / Time No Known Allergies Allergy Unverified 10/04/21 12:35 Home Medications Medication Instructions Recorded Confirmed Last Taken Type Albuterol Sulfate [Proair 90 mcg PO PRN 10/04/21 10/04/21 Unknown History Respiclick] Aspirin [Aspirin BABY CHEW TAB] 81 mg PO QDAY 10/04/21 10/04/21 Unknown History AtorvaSTATin [Lipitor] 40 mg PO QHS 10/04/21 10/04/21 Unknown History Gabapentin [Neurontin] 300 mg PO BID 10/04/21 10/04/21 Unknown History Losartan [Cozaar] 25 mg PO QDAY 10/04/21 10/04/21 Unknown History Metoprolol Succinate [Kapspargo 200 mg PO DAILY 10/04/21 10/04/21 Unknown History Sprinkle] Rivaroxaban [Xarelto] 20 mg PO DAILY 10/04/21 10/04/21 Unknown History Active Meds: Active Medications Acetaminophen (Acetaminophen 325 Mg Tab) 650 mg PO Q4H PRN PRN Reason: Pain MILD(1-3)/Fever >100.5/CURTIS Albuterol (Albuterol 2.5 Mg/3 Ml Nebu) 2.5 mg IH Q4HRT PRN PRN Reason: Shortness Of Breath Albuterol/Ipratropium (Ipratropium/Albuterol Sulfate 3 Ml Ampul.Neb) 1 ampul IH QIDRT [facility] Last Admin: 10/05/21 08:20 Dose: 1 ampul Aspirin (Aspirin 81 Mg Tab Chew) 81 mg PO QDAY [facility] Last Admin: 10/05/21 10:41 Dose: 81 mg Atorvastatin Calcium (Atorvastatin 40 Mg Tab) 40 mg PO QHS [facility] Last Admin: 10/04/21 22:33 Dose: 40 mg Azithromycin (Azithromycin 250 Mg Tab) 500 mg PO Q24H [facility]; Protocol Stop: 10/08/21 22:01 Furosemide (Furosemide 40 Mg/4 Ml Inj) 40 mg IV 0600 [facility] Last Admin: 10/05/21 05:58 Dose: 40 mg Gabapentin (Gabapentin 300 Mg Cap) 300 mg PO BID [facility] Last Admin: 10/05/21 10:42 Dose: 300 mg Heparin Sodium (Porcine) (Heparin 5,000 Unit/1 Ml Vial) 5,000 unit SUB-Q Q12HR [facility] Last Admin: 10/05/21 10:43 Dose: 5,000 unit Hydromorphone HCl (Hydromorphone 0.5 Mg/0.5 Ml Inj) 0.5 mg IV Q3H PRN PRN Reason: Pain , Severe (7-10) Ceftriaxone Sodium (Rocephin/Ns 2 Gm/100 Ml) 2 gm in 100 mls @ 200 mls/hr IV Q24H [facility]; Protocol Last Admin: 10/04/21 22:09 Dose: 200 mls/hr Ibuprofen (Ibuprofen 600 Mg Tab) 600 mg PO Q6H PRN PRN Reason: Pain, Mild (1-3) Losartan Potassium (Losartan 25 Mg Tab) 25 mg PO QDAY [facility] Last Admin: 10/05/21 10:42 Dose: 25 mg Methylprednisolone Sodium Succinate (Methylprednisolone Sod Succinate 125 Mg/2 Ml Inj) 80 mg IV Q8H [facility] Last Admin: 10/05/21 05:57 Dose: 80 mg Metoclopramide HCl (Metoclopramide 10 Mg/2 Ml Inj) 10 mg IV Q6H PRN PRN Reason: Nausea And Vomiting Metoprolol Succinate (Metoprolol Succinate Xl 100 Mg Tab) 200 mg PO QDAY [facility] Last Admin: 10/05/21 10:43 Dose: 200 mg Morphine Sulfate (Morphine 2 Mg/1 Ml Inj) 2 mg IV Q4H PRN PRN Reason: Pain, Moderate (4-6) Ondansetron HCl (Ondansetron 4 Mg/2 Ml Inj) 4 mg IV Q3H PRN PRN Reason: Nausea And Vomiting Oxycodone/Acetaminophen (Oxycodone /Acetaminophen 5-325mg Tab) 1 tab PO Q6H PRN PRN Reason: Pain, Moderate (4-6) Last Admin: 10/05/21 11:59 Dose: 1 tab Sodium Chloride (Sodium Chloride 0.9% 10 Ml Flush Syringe) 10 ml IV BID [facility] Last Admin: 10/04/21 22:34 Dose: 10 ml Sodium Chloride (Sodium Chloride 0.9% 10 Ml Flush Syringe) 10 ml IV PRN PRN PRN Reason: LINE FLUSH Spironolactone (Spironolactone 25 Mg Tab) 25 mg PO QAM [facility] Last Admin: 10/05/21 10:41 Dose: 25 mg Review of Systems All systems: negative Physical Examination Vital signs: Vital Signs Pulse Resp BP Pulse Ox 84 14 82/48 96 10/04/21 12:35 10/04/21 12:35 10/04/21 12:35 10/04/21 12:35 General appearance: no acute distress, alert, appears uncomfortable Eyes: non-icteric ENT: oropharynx moist Neck: other (large in circumference) Ascultation: Bilateral: rales Results - Laboratory Findings CBC and BMP: 10/05/21 05:52 10/05/21 05:52 ABG ABG pH 7.260 pH Units (7.350-7.450) L 10/04/21 16:30 ABG pCO2 67.7 mm Hg 10/04/21 16:30 ABG pO2 97.1 mm Hg (80.0-90.0) H 10/04/21 16:30 ABG O2 Saturation 96.8 % (95.0-99.0) 10/04/21 16:30 PT/INR, D-dimer PT 40.7 Sec. (12.2-14.9) H 10/04/21 13:12 INR 3.58 (0.87-1.13) H 10/04/21 13:12 Abnormal lab findings: Abnormal Labs 10/04/21 10/04/21 10/04/21 12:37 13:12 13:12 WBC 13.6 H RBC 3.38 L Hgb 9.7 L Hct 30.3 L RDW 17.4 H Plt Count 456 H Lymph % (Auto) 11.2 L [place] % (Auto) 11.6 H [place] # (Auto) 1.6 H Seg Neutrophils % 75.2 H Seg Neutrophils # 10.2 H PT 40.7 H INR 3.58 H APTT 43.9 H ABG pH ABG pO2 ABG HCO3 ABG Hemoglobin Oxyhemoglobin Sodium Potassium Chloride BUN Creatinine Glucose POC Glucose 112 H Magnesium Iron Troponin T NT-Pro-B Natriuret Pep Albumin LDL Cholesterol Direct HDL Cholesterol 10/04/21 10/04/21 10/04/21 13:12 13:12 13:35 WBC RBC Hgb Hct RDW Plt Count Lymph % (Auto) [place] % (Auto) [place] # (Auto) Seg Neutrophils % Seg Neutrophils # PT INR APTT ABG pH 7.254 L ABG pO2 ABG HCO3 28.9 H ABG Hemoglobin 9.7 L Oxyhemoglobin 93.5 L Sodium 135 L Potassium Chloride 95.6 L BUN 56 H Creatinine 2.1 H Glucose 107 H POC Glucose Magnesium 2.50 H Iron Troponin T 0.030 H NT-Pro-B Natriuret Pep 9268 H Albumin 3.4 L LDL Cholesterol Direct 47 L HDL Cholesterol 38 L 10/04/21 10/05/21 10/05/21 16:30 05:52 05:52 WBC RBC 3.15 L Hgb 9.2 L Hct 28.1 L RDW 17.2 H Plt Count Lymph % (Auto) [place] % (Auto) [place] # (Auto) Seg Neutrophils % Seg Neutrophils # PT INR APTT ABG pH 7.260 L ABG pO2 97.1 H ABG HCO3 29.7 H ABG Hemoglobin 9.5 L Oxyhemoglobin 94.6 L Sodium 136 L Potassium 5.5 H Chloride BUN 64 H Creatinine 2.1 H Glucose 174 H POC Glucose Magnesium Iron Troponin T NT-Pro-B Natriuret Pep Albumin 3.1 L LDL Cholesterol Direct HDL Cholesterol 10/05/21 07:13 WBC RBC Hgb Hct RDW Plt Count Lymph % (Auto) [place] % (Auto) [place] # (Auto) Seg Neutrophils % Seg Neutrophils # PT INR APTT ABG pH ABG pO2 ABG HCO3 ABG Hemoglobin Oxyhemoglobin Sodium Potassium Chloride BUN Creatinine Glucose POC Glucose Magnesium Iron 22 L Troponin T NT-Pro-B Natriuret Pep Albumin LDL Cholesterol Direct HDL Cholesterol - Diagnostic Findings Chest x-ray: image reviewed Assessment and Plan 60 y/o obese male with acute respiratory failure. 1. Suggest obtaining all records from [place] 2. I cannot access my office records remotely but will review chart on Thursday 3. Would suggest fluid restriction and diuresis if renal oK 4. Will start to wean down steroids 5. Bipap QHS and PRN during the day 6. Will add BID pulmicort and continue scheduled duonebs 7. Patient would not answer if he is on oxygen therapy at home or not. Would suggest ambulatory walk test prior to discharge.
[2021-10-05 12:25] LABS: Anisocytosis Few; Basophils % (Manual) 0 % (0.0-1.8); Eosinophils % (Manual) 0 % (0.0-4.3); Hypochromasia Few; Monocytes % (Manual) 0 % (0.0-7.3); Platelet Estimate Consistent w Auto; Total Cells Counted 100
--- NOTE | 2021-10-05 13:39 | Consultation ---
History of Present Illness Consult date: 10/05/21 Requesting physician: JHOANA CHOI Consult reason: congestive heart failure History of present illness: Pt is a 60-year-old male with a hx of COPD (on 3L home O2), CHF, morbid obesity/SUNIL, tobacco abuse, and EtOH abuse who presented in respiratory distress requiring BiPAP. Of note, pt has a hx of COVID-19 PNA as well in May 2020 requiring a prolonged ICU stay and trach in the setting of ongoing hypoxic respiratory failure. He is not very helpful in terms of HPI and is hyperfocused on food & visiting hours during assessment. Per his at bedside, his O2 sats were dropping at home and his breathing was heavy. She also reports he was pale prior to arrival. He has severe BLE edema extending into his thighs and abdomen, which she states has been building up for months. He denies non-compliance with his home medical therapies but is noted to be eating fast food and drinking a large soda upon assessment despite counseling. Pt is previously unknown to our practice. He has been seen by EP @ [place] on 1 occasion but otherwise follows with [facility] for all of his care. Cardiology has been consulted for CHF. BNP elevated > 9k. CXR reveals pulmonary vascular congestion. Past History Past Medical History: atrial fib, COPD, diabetes, heart failure, hypertension, hyperlipidemia, other (SUNIL) Past Surgical History: Other (ablation). denies: CABG, PTCA Social history: smoking (cigars), alcohol abuse (1/5 pint liquor daily) Family history: CAD, diabetes, hypertension Medications and Allergies Allergies Allergy/AdvReac Type Severity Reaction Status Date / Time No Known Allergies Allergy Unverified 10/04/21 12:35 Home Medications Medication Instructions Recorded Confirmed Last Taken Type Albuterol Sulfate [Proair 90 mcg PO PRN 10/04/21 10/04/21 Unknown History Respiclick] Aspirin [Aspirin BABY CHEW TAB] 81 mg PO QDAY 10/04/21 10/04/21 Unknown History AtorvaSTATin [Lipitor] 40 mg PO QHS 10/04/21 10/04/21 Unknown History Gabapentin [Neurontin] 300 mg PO BID 10/04/21 10/04/21 Unknown History Losartan [Cozaar] 25 mg PO QDAY 10/04/21 10/04/21 Unknown History Metoprolol Succinate [Kapspargo 200 mg PO DAILY 10/04/21 10/04/21 Unknown History Sprinkle] Rivaroxaban [Xarelto] 20 mg PO DAILY 10/04/21 10/04/21 Unknown History Active Meds: Active Medications Acetaminophen (Acetaminophen 325 Mg Tab) 650 mg PO Q4H PRN PRN Reason: Pain MILD(1-3)/Fever >100.5/CURTIS Albuterol (Albuterol 2.5 Mg/3 Ml Nebu) 2.5 mg IH Q4HRT PRN PRN Reason: Shortness Of Breath Albuterol/Ipratropium (Ipratropium/Albuterol Sulfate 3 Ml Ampul.Neb) 1 ampul IH Q6HRT [facility] Aspirin (Aspirin 81 Mg Tab Chew) 81 mg PO QDAY [facility] Last Admin: 10/05/21 10:41 Dose: 81 mg Atorvastatin Calcium (Atorvastatin 40 Mg Tab) 40 mg PO QHS [facility] Last Admin: 10/04/21 22:33 Dose: 40 mg Azithromycin (Azithromycin 250 Mg Tab) 500 mg PO Q24H [facility]; Protocol Stop: 10/08/21 22:01 Budesonide (Budesonide 0.5 Mg/2 Ml Nebu) 0.5 mg IH Q12HRT [facility] Furosemide (Furosemide 40 Mg/4 Ml Inj) 40 mg IV 0600 [facility] Last Admin: 10/05/21 05:58 Dose: 40 mg Gabapentin (Gabapentin 300 Mg Cap) 300 mg PO BID [facility] Last Admin: 10/05/21 10:42 Dose: 300 mg Heparin Sodium (Porcine) (Heparin 5,000 Unit/1 Ml Vial) 5,000 unit SUB-Q Q12HR [facility] Last Admin: 10/05/21 10:43 Dose: 5,000 unit Hydromorphone HCl (Hydromorphone 0.5 Mg/0.5 Ml Inj) 0.5 mg IV Q3H PRN PRN Reason: Pain , Severe (7-10) Ceftriaxone Sodium (Rocephin/Ns 2 Gm/100 Ml) 2 gm in 100 mls @ 200 mls/hr IV Q24H [facility]; Protocol Last Admin: 10/04/21 22:09 Dose: 200 mls/hr Ibuprofen (Ibuprofen 600 Mg Tab) 600 mg PO Q6H PRN PRN Reason: Pain, Mild (1-3) Losartan Potassium (Losartan 25 Mg Tab) 25 mg PO QDAY [facility] Last Admin: 10/05/21 10:42 Dose: 25 mg Methylprednisolone Sodium Succinate (Methylprednisolone Sod Succinate 125 Mg/2 Ml Inj) 80 mg IV Q8H [facility] Last Admin: 10/05/21 05:57 Dose: 80 mg Metoclopramide HCl (Metoclopramide 10 Mg/2 Ml Inj) 10 mg IV Q6H PRN PRN Reason: Nausea And Vomiting Metoprolol Succinate (Metoprolol Succinate Xl 100 Mg Tab) 200 mg PO QDAY [facility] Last Admin: 10/05/21 10:43 Dose: 200 mg Morphine Sulfate (Morphine 2 Mg/1 Ml Inj) 2 mg IV Q4H PRN PRN Reason: Pain, Moderate (4-6) Ondansetron HCl (Ondansetron 4 Mg/2 Ml Inj) 4 mg IV Q3H PRN PRN Reason: Nausea And Vomiting Oxycodone/Acetaminophen (Oxycodone /Acetaminophen 5-325mg Tab) 1 tab PO Q6H PRN PRN Reason: Pain, Moderate (4-6) Last Admin: 10/05/21 11:59 Dose: 1 tab Sodium Chloride (Sodium Chloride 0.9% 10 Ml Flush Syringe) 10 ml IV BID [facility] Last Admin: 10/04/21 22:34 Dose: 10 ml Sodium Chloride (Sodium Chloride 0.9% 10 Ml Flush Syringe) 10 ml IV PRN PRN PRN Reason: LINE FLUSH Spironolactone (Spironolactone 25 Mg Tab) 25 mg PO QAM [facility] Last Admin: 10/05/21 10:41 Dose: 25 mg Review of Systems Constitutional: no fever, no chills Cardiovascular: edema, shortness of breath, no chest pain Respiratory: cough, shortness of breath Integumentary: wounds Neurological: confusion Physical Examination Vital Signs Pulse Resp BP Pulse Ox 84 14 82/48 96 10/04/21 12:35 10/04/21 12:35 10/04/21 12:35 10/04/21 12:35 General appearance: no acute distress HEENT: Positive: EOMI, Normocephaly Neck: Positive: neck supple Cardiac: Positive: irregularly irregular, S1/S2 Lungs: Positive: Decreased Breath Sounds, Rales Neuro: Positive: Grossly Intact Abdomen: Positive: Soft Skin: Positive: Wound (sacral, left knee), Moist Extremities: Present: +4 Edema, Ulceration Noted (BLE blistering), warm, Other (venous stasis changes) Results 10/05/21 05:52 10/05/21 05:52 Cardiac Enzymes 10/04/21 10/05/21 Range/Units 13:12 05:52 AST 31 35 (5-40) units/L Lipids 10/04/21 Range/Units 13:12 Triglycerides 97 (2-149) mg/dL Cholesterol 100 (50-199) mg/dL HDL Cholesterol 38 L (40-59) mg/dL Cholesterol/HDL Ratio 2.63 % CBC 10/05/21 Range/Units 05:52 WBC 10.7 (4.5-11.0) K/mm3 RBC 3.15 L (3.65-5.03) M/mm3 Hgb 9.2 L (11.8-15.2) gm/dl Hct 28.1 L (35.5-45.6) % Plt Count 409 (140-440) K/mm3 Comprehensive Metabolic Panel 10/04/21 10/05/21 Range/Units 13:12 05:52 Sodium 135 L 136 L (137-145) mmol/L Potassium 4.9 5.5 H (3.6-5.0) mmol/L Chloride 95.6 L 98.4 (98-107) mmol/L Carbon Dioxide 26 25 (22-30) mmol/L BUN 56 H 64 H (9-20) mg/dL Creatinine 2.1 H 2.1 H (0.8-1.3) mg/dL Glucose 107 H 174 H (75-100) mg/dL Calcium 8.8 8.7 (8.4-10.2) mg/dL AST 31 35 (5-40) units/L ALT 25 24 (7-56) units/L Alkaline Phosphatase 117 118 (35-129) units/L Total Protein 7.9 7.3 (6.3-8.2) g/dL Albumin 3.4 L 3.1 L (3.9-5) g/dL - Imaging and Cardiology Echo: pending, report reviewed (06/09/2020: EF 45-50%, mildly dilated LA, mild AI, trace MR) EKG: report reviewed, image reviewed - EKG Interpretation EKG: no acute changes EKG interpretations - Telemetry EKG Rhythm: Atrial Fibrillation - EKG Supraventricular dysrhythmia: atrial fibrillation Assessment and Plan Assessment: Acute on Chronic Respiratory Failure (on 3L home O2 per pt report) COPD ?Exacerbation Acute on Chronic HFmrEF Cardiomyopathy (EF 45-50% in 2020, no ischemic workup on file, pt denies hx of MA/CAD/stents) REECE / ?CKD Anemia Permanent AF (s/p SERGIO in 2018, on Xarelto) HTN DM2 Morbid Obesity SUNIL H/o COVID-19 PNA (05/2020-06/2020, requiring a prolonged ICU admission & tracheostomy) Tobacco Abuse EtOH Abuse (drinks 1/5 pint liquor per day) Sacral Ulcer Medical Non-Compliance Plan: Consider CIWA protocol. Echo pending. Continue IV diuresis with strict I/Os and close monitoring of renal indices & electrolytes. On Torsemide 100mg daily at home. IV Lasix increased to 40mg q8h per Nephro recs. Agree with resumption of BB (on Toprol XL 200mg daily per med rec). Aldactone & Losartan held in light of renal fxn. Obtain [facility] records. Lifestyle modifications, including sodium/fluid restrictions, were discussed at length with pt and pt's at bedside. Pt verbalized understanding. Of note, pt's would like to be updated daily regarding changes in status and plan. Pt seen in conjunction with Dr. Moses, who agrees with the assessment and plan of care. - Patient Problems (1) Acute on chronic HFrEF (heart failure with reduced ejection fraction) Current Visit: Yes Status: Acute
[2021-10-05] MEDS ORDERED: SODIUM POLYSTYRENE 15 GM/60 ML ORAL LIQD PO ONE ×2 (14:58→16:40)
[2021-10-05] MEDS: FUROSEMIDE 40 MG/4 ML INJ IV SCH (16:13)
--- NOTE | 2021-10-05 17:27 | Ultrasound Report ---
ULTRASOUND RENAL INDICATION: bennett. COMPARISON: No relevant prior imaging study available. FINDINGS: RIGHT KIDNEY: Size: 11.0 x 5.9 x 5.1 cm. Echogenicity: Normal. Cortical thickness: Normal. Hydronephrosis: None. Cyst or mass: None. Stones: None. LEFT KIDNEY: Size: 11.8 x 6.0 x 5.6 cm. Echogenicity: Normal. Cortical thickness: Normal. Hydronephrosis: None. Cyst or mass: None. Stones: None. Urinary Bladder: No significant abnormality. Free Fluid: None. Additional Findings: None. IMPRESSION 1. No acute sonographic abnormality of the kidneys. Signer Name: Katerina Grullon MD Signed: 10/05/2021 5:23 PM Workstation Name: [id number]
--- NOTE | 2021-10-05 18:41 | Progress Note ---
Assessment and Plan Assessment and plan: Advance Directives: Yes (Full code) VTE prophylaxis?: Chemical Plan of care discussed with patient/family: Yes --Acute respiratory failure with hypoxia and hypercapnia Patient has chronic respiratory failure and and is on home oxygen of 2 L. #1 acute respiratory failure with hypoxia and hypercarbia. His ABG significant for pH of 7.254 and bicarb and CO2 of 66.8 and PO2 of 87.6. Patient initiated oxygen titrate O2 sats to more than 90% , nebulizers , tapering dose of IV steroids , empiric IV antibiotics Inhalation steroids, home oxygen evaluation at discharge Pulmonary evaluation and recommendations noted and appreciated -- Acute exacerbation of chronic obstructive pulmonary disease (COPD) Oxygen titrate O2 sats more than 90%, home O2 evaluation at discharge Patient on IV antibiotics IV Solu-Medrol and duo nebs [id number] and Pulmicort. Wean as tolerated, physical therapy occupational therapy and rehabilitation Pulmonary following --Acute on chronic systolic CHF (congestive heart failure) Patient initiated on Lasix and Aldactone. Echocardiogram requested for ejection fraction and valve function and wall motion abnormality. Cardiology consult requested. Daily weights and intake and output. -- Morbid obesity with BMI of 40.0-44.9, adult Patient needs to see the bariatric surgeon Patient will be given referral to Dr. Evans who is a bariatric surgeon in this hospital --Possible obstructive sleep apnea; With CPAP/BiPAP at night and as needed during daytime, Wean as tolerated Patient needs outpatient sleep study to rule out obstructive sleep apnea -- hypertension; Continue antihypertensives As needed medications -- History of atrial fibrillation Rate controlled, continue AV evans blocking agents Anticoagulation with Xarelto Medications reconciled --Anemia Hb 9,2 Anemia work-up requested Anemia of chronic disease, closely monitor --Superficial blisters, ecchymosis bilateral lower extremity Consult wound care, supportive care -- DVT prophylaxis superficial blisters Patient is on Xarelto, SCDs --Advance care planning Disease education conducted, care plan discussed, diagnosis discussed, prognosis discussed. Patient is full code. Treatment plan , discharge planning discussed patient acknowledged understanding and agreement with care plan. +30 minutes. Strongly counseled the importance of adhering to treatment plan We will monitor the patient and adjust management as needed We will closely monitor patient and adjust management as needed Plan of care reviewed with the patient his nurse case management History Interval history: 60-year-old male patient with significant past medical history of COPD home oxygen dependent on 2 L of nasal cannula oxygen morbid obesity obstructive sleep apnea, congestive heart failure unknown ejection fraction presented to the emergency room with acute respiratory distress with hypoxia and hypercapnia requiring BiPAP. Patient has history of COVID-19 pneumonia in May 2020 requiring prolonged ICU stay and tracheostomy in the setting of ongoing hypoxia and respiratory failure. Patient is angry loud and verbally, agitated. Mild shortness of breath on supplemental oxygen Vital signs reviewed Hospitalist Physical - Constitutional Vitals: Temp Pulse Resp BP Pulse Ox 97.3 F L 98 H 20 124/75 94 10/05/21 04:54 10/05/21 14:35 10/05/21 14:35 10/05/21 10:43 10/05/21 12:22 General appearance: Present: severe distress, well-nourished, other (On BiPAP on admission now on nasal cannula oxygen) - EENT Eyes: Present: PERRL, EOM intact - Neck Neck: Present: supple, normal ROM - Respiratory Respiratory effort: normal Respiratory: bilateral: diminished, rales, negative: rhonchi, wheezing - Cardiovascular Rhythm: regular Heart Sounds: Present: S1 & S2 - Extremities Extremities: no ischemia Extremity abnormal: edema, other (Erythematous with blisters, some superficial abrasions and mild bleeding) - Abdominal General gastrointestinal: soft, non-tender, non-distended, normal bowel sounds - Integumentary Integumentary: Present: clear, warm - Psychiatric Psychiatric: appropriate mood/affect, cooperative - Neurologic Neurologic: CNII-XII intact, moves all extremities HEART Score - HEART Score Risk factors: > 3 risk factors or hx of atherosclerotic disease Troponin: Troponin T 0.026 ng/mL (0.00-0.029) 10/04/21 21:06 Troponin: 1-3x normal limit - Critical Actions Critical Actions: 4-6 pts:12-16.6% risk of adverse cardiac event. Should be admitted Results - Labs CBC & Chem 7: 10/05/21 05:52 10/05/21 05:52 Labs: Laboratory Last Values WBC 10.7 K/mm3 (4.5-11.0) 10/05/21 05:52 RBC 3.15 M/mm3 (3.65-5.03) L 10/05/21 05:52 Hgb 9.2 gm/dl (11.8-15.2) L 10/05/21 05:52 Hct 28.1 % (35.5-45.6) L 10/05/21 05:52 MCV 89 fl (84-94) 10/05/21 05:52 MCH 29 pg (28-32) 10/05/21 05:52 MCHC 33 % (32-34) 10/05/21 05:52 RDW 17.2 % (13.2-15.2) H 10/05/21 05:52 Plt Count 409 K/mm3 (140-440) 10/05/21 05:52 Lymph % (Auto) 11.2 % (13.4-35.0) L 10/04/21 13:12 [place] % (Auto) 11.6 % (0.0-7.3) H 10/04/21 13:12 Eos % (Auto) 1.2 % (0.0-4.3) 10/04/21 13:12 Baso % (Auto) 0.8 % (0.0-1.8) 10/04/21 13:12 Lymph # (Auto) 1.5 K/mm3 (1.2-5.4) 10/04/21 13:12 [place] # (Auto) 1.6 K/mm3 (0.0-0.8) H 10/04/21 13:12 Eos # (Auto) 0.2 K/mm3 (0.0-0.4) 10/04/21 13:12 Baso # (Auto) 0.1 K/mm3 (0.0-0.1) 10/04/21 13:12 Add Manual Diff Complete 10/05/21 05:52 Total Counted 100 10/05/21 05:52 Seg Neutrophils % Civil Rights Investigator 10/05/21 05:52 Seg Neuts % (Manual) 97.0 % (40.0-70.0) H 10/05/21 05:52 Band Neutrophils % 0 % 10/05/21 05:52 Lymphocytes % (Manual) 3.0 % (13.4-35.0) L 10/05/21 05:52 Reactive Lymphs % (Man) 0 % 10/05/21 05:52 Monocytes % (Manual) 0 % (0.0-7.3) 10/05/21 05:52 Eosinophils % (Manual) 0 % (0.0-4.3) 10/05/21 05:52 Basophils % (Manual) 0 % (0.0-1.8) 10/05/21 05:52 Metamyelocytes % 0 % 10/05/21 05:52 Myelocytes % 0 % 10/05/21 05:52 Promyelocytes % 0 % 10/05/21 05:52 Blast Cells % 0 % 10/05/21 05:52 Nucleated RBC % Not Reportable 10/05/21 05:52 Seg Neutrophils # 10.2 K/mm3 (1.8-7.7) H 10/04/21 13:12 Seg Neutrophils # Man 10.4 K/mm3 (1.8-7.7) H 10/05/21 05:52 Band Neutrophils # 0.0 K/mm3 10/05/21 05:52 Lymphocytes # (Manual) 0.3 K/mm3 (1.2-5.4) L 10/05/21 05:52 Abs React Lymphs (Man) 0.0 K/mm3 10/05/21 05:52 Monocytes # (Manual) 0.0 K/mm3 (0.0-0.8) 10/05/21 05:52 Eosinophils # (Manual) 0.0 K/mm3 (0.0-0.4) 10/05/21 05:52 Basophils # (Manual) 0.0 K/mm3 (0.0-0.1) 10/05/21 05:52 Metamyelocytes # 0.0 K/mm3 10/05/21 05:52 Myelocytes # 0.0 K/mm3 10/05/21 05:52 Promyelocytes # 0.0 K/mm3 10/05/21 05:52 Blast Cells # 0.0 K/mm3 10/05/21 05:52 WBC Morphology Not Reportable 10/05/21 05:52 Hypersegmented Neuts Not Reportable 10/05/21 05:52 Hyposegmented Neuts Not Reportable 10/05/21 05:52 Hypogranular Neuts Not Reportable 10/05/21 05:52 Smudge Cells Not Reportable 10/05/21 05:52 Toxic Granulation Not Reportable 10/05/21 05:52 Toxic Vacuolation Not Reportable 10/05/21 05:52 Dohle Bodies Not Reportable 10/05/21 05:52 Pelger-Huet Anomaly Not Reportable 10/05/21 05:52 Rod Rods Not Reportable 10/05/21 05:52 Platelet Estimate Consistent w auto 10/05/21 05:52 Clumped Platelets Not Reportable 10/05/21 05:52 Plt Clumps, EDTA Not Reportable 10/05/21 05:52 Large Platelets Not Reportable 10/05/21 05:52 Giant Platelets Not Reportable 10/05/21 05:52 Platelet Satelliting Not Reportable 10/05/21 05:52 Plt Morphology Comment Not Reportable 10/05/21 05:52 RBC Morphology Not Reportable 10/05/21 05:52 Dimorphic RBCs Not Reportable 10/05/21 05:52 Polychromasia Not Reportable 10/05/21 05:52 Hypochromasia Few 10/05/21 05:52 Poikilocytosis Not Reportable 10/05/21 05:52 Anisocytosis Few 10/05/21 05:52 Microcytosis Not Reportable 10/05/21 05:52 Macrocytosis Not Reportable 10/05/21 05:52 Spherocytes Not Reportable 10/05/21 05:52 Pappenheimer Bodies Not Reportable 10/05/21 05:52 Sickle Cells Not Reportable 10/05/21 05:52 Target Cells Not Reportable 10/05/21 05:52 Tear Drop Cells Not Reportable 10/05/21 05:52 Ovalocytes Not Reportable 10/05/21 05:52 Helmet Cells Not Reportable 10/05/21 05:52 [place] Bodies Not Reportable 10/05/21 05:52 [place] Rings Not Reportable 10/05/21 05:52 [place] Cells Not Reportable 10/05/21 05:52 Bite Cells Not Reportable 10/05/21 05:52 Crenated Cell Not Reportable 10/05/21 05:52 Elliptocytes Not Reportable 10/05/21 05:52 Acanthocytes (Spur) Not Reportable 10/05/21 05:52 Rouleaux Not Reportable 10/05/21 05:52 Hemoglobin C Crystals Not Reportable 10/05/21 05:52 Schistocytes Not Reportable 10/05/21 05:52 Malaria parasites Not Reportable 10/05/21 05:52 Michael Bodies Not Reportable 10/05/21 05:52 Hem Pathologist Commnt No 10/05/21 05:52 PT 40.7 Sec. (12.2-14.9) H 10/04/21 13:12 INR 3.58 (0.87-1.13) H 10/04/21 13:12 APTT 43.9 Sec. (24.2-36.6) H 10/04/21 13:12 ABG pH 7.260 pH Units (7.350-7.450) L 10/04/21 16:30 ABG pCO2 67.7 mm Hg 10/04/21 16:30 ABG pO2 97.1 mm Hg (80.0-90.0) H 10/04/21 16:30 ABG HCO3 29.7 mmol/L (20.0-26.0) H 10/04/21 16:30 ABG O2 Saturation 96.8 % (95.0-99.0) 10/04/21 16:30 ABG O2 Content 12.9 (0.0-44) 10/04/21 16:30 ABG Base Excess 1.6 mmol/L (-2.0-3.0) 10/04/21 16:30 ABG Hemoglobin 9.5 gm/dl (14.0-18.0) L 10/04/21 16:30 ABG Carboxyhemoglobin 1.9 % (0.0-5.0) 10/04/21 16:30 ABG Methemoglobin 0.4 % (0.0-1.5) 10/04/21 16:30 Oxyhemoglobin 94.6 % (95.0-99.0) L 10/04/21 16:30 FiO2 35 % 10/04/21 16:30 Sodium 136 mmol/L (137-145) L 10/05/21 05:52 Potassium 5.5 mmol/L (3.6-5.0) H 10/05/21 05:52 Chloride 98.4 mmol/L (98-107) 10/05/21 05:52 Carbon Dioxide 25 mmol/L (22-30) 10/05/21 05:52 Anion Gap 18 mmol/L 10/05/21 05:52 BUN 64 mg/dL (9-20) H 10/05/21 05:52 Creatinine 2.1 mg/dL (0.8-1.3) H 10/05/21 05:52 Estimated GFR 32 ml/min 10/05/21 05:52 BUN/Creatinine Ratio 30 % 10/05/21 05:52 Glucose 174 mg/dL (75-100) H 10/05/21 05:52 POC Glucose 181 mg/dL (70-105) H 10/05/21 16:28 Calcium 8.7 mg/dL (8.4-10.2) 10/05/21 05:52 Magnesium 2.50 mg/dL (1.7-2.3) H 10/04/21 13:12 Iron 22 ug/dL (49-181) L 10/05/21 07:13 TIBC 373 mcg/dL (250-450) 10/05/21 07:13 % Saturation 5.90 % 10/05/21 07:13 Transferrin 317 mg/dl (180-329) 10/05/21 07:13 Total Bilirubin 0.50 mg/dL (0.1-1.2) 10/05/21 05:52 AST 35 units/L (5-40) 10/05/21 05:52 ALT 24 units/L (7-56) 10/05/21 05:52 Alkaline Phosphatase 118 units/L (35-129) 10/05/21 05:52 Troponin T 0.026 ng/mL (0.00-0.029) 10/04/21 21:06 NT-Pro-B Natriuret Pep 9268 pg/mL (0-900) H 10/04/21 13:12 Total Protein 7.3 g/dL (6.3-8.2) 10/05/21 05:52 Albumin 3.1 g/dL (3.9-5) L 10/05/21 05:52 Albumin/Globulin Ratio 0.7 % 10/05/21 05:52 Triglycerides 97 mg/dL (2-149) 10/04/21 13:12 Cholesterol 100 mg/dL (50-199) 10/04/21 13:12 LDL Cholesterol Direct 47 mg/dL (50-130) L 10/04/21 13:12 HDL Cholesterol 38 mg/dL (40-59) L 10/04/21 13:12 Cholesterol/HDL Ratio 2.63 % 10/04/21 13:12 Vitamin B12 900.5 pg/mL (211911) 10/05/21 07:13 Microbiology: Microbiology 10/04/21 15:49 Peripheral/Venous Blood Culture - Preliminary NO GROWTH AFTER 24 HOURS 10/04/21 16:39 Peripheral/Venous Blood Culture - Preliminary NO GROWTH AFTER 24 HOURS Joaquin/IV: Voiding Method Toilet Active Medications - Current Medications Current Medications: Generic Name Dose Route Start Last Admin Trade Name Freq PRN Reason Stop Dose Admin Acetaminophen 650 mg 10/04/21 20:23 Acetaminophen 325 Mg Tab PO Q4H PRN Pain MILD(1-3)/Fever >100.5/CURTIS Albuterol 2.5 mg 10/04/21 20:32 Albuterol 2.5 Mg/3 Ml Nebu IH Q4HRT PRN Shortness Of Breath Albuterol/Ipratropium 1 ampul 10/05/21 14:00 10/05/21 14:25 Ipratropium/Albuterol Sulfate 3 Ml Ampul.Neb IH 1 ampul Q6HRT MOOKIE Administration Aspirin 81 mg 10/04/21 21:00 10/05/21 10:41 Aspirin 81 Mg Tab Chew PO 81 mg QDAY MOOKIE Administration Atorvastatin Calcium 40 mg 10/04/21 22:00 10/04/21 22:33 Atorvastatin 40 Mg Tab PO 40 mg QHS MOOKIE Administration Azithromycin 500 mg 10/05/21 22:00 Azithromycin 250 Mg Tab PO 10/08/21 22:01 Q24H MOOKIE Protocol Budesonide 0.5 mg 10/05/21 20:00 Budesonide 0.5 Mg/2 Ml Nebu IH Q12HRT MOOKIE Furosemide 40 mg 10/05/21 16:00 10/05/21 16:13 Furosemide 40 Mg/4 Ml Inj IV 40 mg Q8H MOOKIE Administration Gabapentin 300 mg 10/04/21 22:00 10/05/21 10:42 Gabapentin 300 Mg Cap PO 300 mg BID MOOKIE Administration Heparin Sodium (Porcine) 5,000 unit 10/04/21 22:00 10/05/21 10:43 Heparin 5,000 Unit/1 Ml Vial SUB-Q 5,000 unit Q12HR MOOKIE Administration Hydromorphone HCl 0.5 mg 10/04/21 20:24 Hydromorphone 0.5 Mg/0.5 Ml Inj IV Q3H PRN Pain , Severe (7-10) Ceftriaxone Sodium 2 gm in 100 mls @ 200 mls/hr 10/04/21 22:00 10/04/21 22:09 Rocephin/Ns 2 Gm/100 Ml IV 200 mls/hr Q24H MOOKIE Administration Protocol Methylprednisolone Sodium Succinate 80 mg 10/04/21 22:00 10/05/21 16:12 Methylprednisolone Sod Succinate 125 Mg/2 Ml Inj IV 80 mg Q8H MOOKIE Administration Metoclopramide HCl 10 mg 10/04/21 20:24 Metoclopramide 10 Mg/2 Ml Inj IV Q6H PRN Nausea And Vomiting Metoprolol Succinate 200 mg 10/04/21 22:00 10/05/21 10:43 Metoprolol Succinate Xl 100 Mg Tab PO 200 mg QDAY MOOKIE Administration Morphine Sulfate 2 mg 10/04/21 20:24 Morphine 2 Mg/1 Ml Inj IV Q4H PRN Pain, Moderate (4-6) Ondansetron HCl 4 mg 10/04/21 20:23 Ondansetron 4 Mg/2 Ml Inj IV Q3H PRN Nausea And Vomiting Oxycodone/Acetaminophen 1 tab 10/04/21 20:24 10/05/21 11:59 Oxycodone /Acetaminophen 5-325mg Tab PO 1 tab Q6H PRN Administration Pain, Moderate (4-6) Sodium Chloride 10 ml 10/04/21 22:00 10/05/21 16:13 Sodium Chloride 0.9% 10 Ml Flush Syringe IV 10 ml BID MOOKIE Administration Sodium Chloride 10 ml 10/04/21 20:23 Sodium Chloride 0.9% 10 Ml Flush Syringe IV PRN PRN LINE FLUSH
[2021-10-05 21:00] LABS: Calcium 9.1 mg/dL (8.4-10.2)
[2021-10-05 21:04] LABS: Iron 16 ug/dL (49-181); Total Iron Binding Capacity 389 mcg/dL (250-450)
[2021-10-05] MEDS: BUDESONIDE 0.5 MG/2 ML NEBU IH SCH (21:08)
[2021-10-05] MEDS: AZITHROMYCIN 250 MG TAB PO SCH (21:47)
[2021-10-05] MEDS: cefTRIAXone/NS 2 GM/100 ML 2 GM/100 ML BAG IV SCH (21:49)
[2021-10-06] MEDS: FUROSEMIDE 40 MG/4 ML INJ IV SCH ×4 (00:19→19:35)
[2021-10-06] MEDS: IPRATROPIUM/ALBUTEROL SULFATE 3 ML AMPUL.NEB IH SCH ×4 (02:56→20:31)
[2021-10-06] MEDS: methylPREDNISolone Sod Succinate 125 MG/2 ML INJ IV SCH ×3 (06:33→22:32)
[2021-10-06 07:34] LABS: Hematocrit 30.3 % (35.5-45.6); Hemoglobin 9.6 gm/dl (11.8-15.2)
[2021-10-06] MEDS: BUDESONIDE 0.5 MG/2 ML NEBU IH SCH ×2 (08:54→20:31)
--- NOTE | 2021-10-06 09:51 | Progress Note ---
Assessment and Plan 60 y/o obese male with acute respiratory failure. 10/06/21: WIll review office records tomorrow. Suggest dropping steroids down to 40q12. Follow up echo results. Continue NIV at night. Continue supplemental O2. 1. Suggest obtaining all records from [facility] 2. I cannot access my office records remotely but will review chart on Thursday 3. Would suggest fluid restriction and diuresis if renal oK 4. Will start to wean down steroids 5. Bipap QHS and PRN during the day 6. Will add BID pulmicort and continue scheduled duonebs 7. Patient would not answer if he is on oxygen therapy at home or not. Would suggest ambulatory walk test prior to discharge. Subjective Date of service: 10/06/21 Interval history: Cardiology obtained more history, likely from as they were present when they saw patient. Currently on 2 liters and stable. Wore bipap therapy last night. Per nurse, records requested from [facility]. Objective Vital Signs - 12hr 10/06/21 10/06/21 10/06/21 00:08 01:00 02:00 Temperature 97.6 F Pulse Rate 99 H 109 H Pulse Rate [ 97 H Bilateral Throughout] Respiratory 20 25 H Rate Respiratory 22 Rate [Bilateral Throughout] Blood Pressure 117/66 O2 Sat by Pulse 93 100 Oximetry 10/06/21 10/06/21 10/06/21 02:53 04:22 08:55 Temperature 97.4 F L Pulse Rate 98 H Pulse Rate [ 108 H Bilateral Throughout] Respiratory 28 H 22 Rate Respiratory 22 Rate [Bilateral Throughout] Blood Pressure 126/75 O2 Sat by Pulse 98 74 L Oximetry 10/06/21 09:00 Temperature Pulse Rate Pulse Rate [ Bilateral Throughout] Respiratory Rate Respiratory Rate [Bilateral Throughout] Blood Pressure O2 Sat by Pulse 93 Oximetry Constitutional: no acute distress, alert, appears uncomfortable Eyes: non-icteric ENT: oropharynx moist Neck: other (large in circumference) Ascultation: Bilateral: rales CBC and BMP: 10/06/21 05:09 10/05/21 19:39 ABG, PT/INR, D-dimer: ABG ABG pH 7.260 pH Units (7.350-7.450) L 10/04/21 16:30 ABG pCO2 67.7 mm Hg 10/04/21 16:30 ABG pO2 97.1 mm Hg (80.0-90.0) H 10/04/21 16:30 ABG O2 Saturation 96.8 % (95.0-99.0) 10/04/21 16:30 PT/INR, D-dimer PT 40.7 Sec. (12.2-14.9) H 10/04/21 13:12 INR 3.58 (0.87-1.13) H 10/04/21 13:12 Abnormal lab findings: Abnormal Labs 10/04/21 10/04/21 10/04/21 12:37 13:12 13:12 WBC 13.6 H RBC 3.38 L Hgb 9.7 L Hct 30.3 L RDW 17.4 H Plt Count 456 H Lymph % (Auto) 11.2 L [place] % (Auto) 11.6 H [place] # (Auto) 1.6 H Seg Neutrophils % 75.2 H Seg Neuts % (Manual) Lymphocytes % (Manual) Seg Neutrophils # 10.2 H Seg Neutrophils # Man Lymphocytes # (Manual) PT 40.7 H INR 3.58 H APTT 43.9 H ABG pH ABG pO2 ABG HCO3 ABG Hemoglobin Oxyhemoglobin Sodium Potassium Chloride BUN Creatinine Glucose POC Glucose 112 H Magnesium Iron Total Creatine Kinase Troponin T NT-Pro-B Natriuret Pep Albumin LDL Cholesterol Direct HDL Cholesterol PTH Intact 10/04/21 10/04/21 10/04/21 13:12 13:12 13:35 WBC RBC Hgb Hct RDW Plt Count Lymph % (Auto) [place] % (Auto) [place] # (Auto) Seg Neutrophils % Seg Neuts % (Manual) Lymphocytes % (Manual) Seg Neutrophils # Seg Neutrophils # Man Lymphocytes # (Manual) PT INR APTT ABG pH 7.254 L ABG pO2 ABG HCO3 28.9 H ABG Hemoglobin 9.7 L Oxyhemoglobin 93.5 L Sodium 135 L Potassium Chloride 95.6 L BUN 56 H Creatinine 2.1 H Glucose 107 H POC Glucose Magnesium 2.50 H Iron Total Creatine Kinase Troponin T 0.030 H NT-Pro-B Natriuret Pep 9268 H Albumin 3.4 L LDL Cholesterol Direct 47 L HDL Cholesterol 38 L PTH Intact 10/04/21 10/05/21 10/05/21 16:30 05:52 05:52 WBC RBC 3.15 L Hgb 9.2 L Hct 28.1 L RDW 17.2 H Plt Count Lymph % (Auto) [place] % (Auto) [place] # (Auto) Seg Neutrophils % Seg Neuts % (Manual) 97.0 H Lymphocytes % (Manual) 3.0 L Seg Neutrophils # Seg Neutrophils # Man 10.4 H Lymphocytes # (Manual) 0.3 L PT INR APTT ABG pH 7.260 L ABG pO2 97.1 H ABG HCO3 29.7 H ABG Hemoglobin 9.5 L Oxyhemoglobin 94.6 L Sodium 136 L Potassium 5.5 H Chloride BUN 64 H Creatinine 2.1 H Glucose 174 H POC Glucose Magnesium Iron Total Creatine Kinase Troponin T NT-Pro-B Natriuret Pep Albumin 3.1 L LDL Cholesterol Direct HDL Cholesterol PTH Intact 10/05/21 10/05/21 10/05/21 07:13 08:33 11:42 WBC RBC Hgb Hct RDW Plt Count Lymph % (Auto) [place] % (Auto) [place] # (Auto) Seg Neutrophils % Seg Neuts % (Manual) Lymphocytes % (Manual) Seg Neutrophils # Seg Neutrophils # Man Lymphocytes # (Manual) PT INR APTT ABG pH ABG pO2 ABG HCO3 ABG Hemoglobin Oxyhemoglobin Sodium Potassium Chloride BUN Creatinine Glucose POC Glucose 213 H 197 H Magnesium Iron 22 L Total Creatine Kinase Troponin T NT-Pro-B Natriuret Pep Albumin LDL Cholesterol Direct HDL Cholesterol PTH Intact 10/05/21 10/05/21 10/05/21 16:28 19:39 19:39 WBC RBC Hgb Hct RDW Plt Count Lymph % (Auto) [place] % (Auto) [place] # (Auto) Seg Neutrophils % Seg Neuts % (Manual) Lymphocytes % (Manual) Seg Neutrophils # Seg Neutrophils # Man Lymphocytes # (Manual) PT INR APTT ABG pH ABG pO2 ABG HCO3 ABG Hemoglobin Oxyhemoglobin Sodium Potassium Chloride BUN Creatinine Glucose POC Glucose 181 H Magnesium Iron 16 L Total Creatine Kinase 200 H Troponin T NT-Pro-B Natriuret Pep Albumin LDL Cholesterol Direct HDL Cholesterol PTH Intact 10/05/21 10/05/21 10/06/21 19:39 Unknown 05:09 WBC RBC Hgb 9.6 L Hct 30.3 L RDW Plt Count Lymph % (Auto) [place] % (Auto) [place] # (Auto) Seg Neutrophils % Seg Neuts % (Manual) Lymphocytes % (Manual) Seg Neutrophils # Seg Neutrophils # Man Lymphocytes # (Manual) PT INR APTT ABG pH ABG pO2 ABG HCO3 ABG Hemoglobin Oxyhemoglobin Sodium Potassium Chloride BUN 69 H Creatinine 2.2 H Glucose 214 H POC Glucose Magnesium Iron Total Creatine Kinase Troponin T NT-Pro-B Natriuret Pep Albumin LDL Cholesterol Direct HDL Cholesterol PTH Intact 109.2 H
[2021-10-06] MEDS: GABAPENTIN 300 MG CAP PO SCH ×2 (11:25→22:28)
[2021-10-06] MEDS: HEPARIN 5,000 UNIT/1 ML VIAL SUB-Q SCH (11:25)
[2021-10-06] MEDS: METOPROLOL SUCCINATE XL 100 MG TAB PO SCH (11:25)
[2021-10-06] MEDS: ASPIRIN 81 MG TAB CHEW PO SCH (11:25)
--- NOTE | 2021-10-06 11:36 | Progress Note ---
Assessment and Plan Assessment and plan: Advance Directives: Yes (Full code) VTE prophylaxis?: Chemical Plan of care discussed with patient/family: Yes --Acute respiratory failure with hypoxia and hypercapnia Patient has chronic respiratory failure and and is on home oxygen of 2 L. #1 acute respiratory failure with hypoxia and hypercarbia. His ABG significant for pH of 7.254 and bicarb and CO2 of 66.8 and PO2 of 87.6. Patient initiated oxygen titrate O2 sats to more than 90% , nebulizers , tapering dose of IV steroids , empiric IV antibiotics Inhalation steroids, home oxygen evaluation at discharge Pulmonary evaluation and recommendations noted and appreciated -- Acute exacerbation of chronic obstructive pulmonary disease (COPD) Oxygen titrate O2 sats more than 90%, home O2 evaluation at discharge Patient on IV antibiotics IV Solu-Medrol and duo nebs [id number] and Pulmicort. Wean as tolerated, physical therapy occupational therapy and rehabilitation Pulmonary following --Acute on chronic systolic CHF (congestive heart failure) Patient initiated on Lasix and Aldactone. Echocardiogram requested for ejection fraction and valve function and wall motion abnormality. Cardiology consult requested. Daily weights and intake and output. -- Morbid obesity with BMI of 40.0-44.9, adult Patient needs to see the bariatric surgeon Patient will be given referral to Dr. Evans who is a bariatric surgeon in this hospital --Possible obstructive sleep apnea; With CPAP/BiPAP at night and as needed during daytime, Wean as tolerated Patient needs outpatient sleep study to rule out obstructive sleep apnea -- hypertension; Continue antihypertensives As needed medications -- History of atrial fibrillation Rate controlled, continue AV evans blocking agents Anticoagulation with Xarelto Medications reconciled --Anemia Hb 9,2 Anemia work-up requested Anemia of chronic disease, closely monitor --Superficial blisters, ecchymosis bilateral lower extremity Consult wound care, supportive care -- DVT prophylaxis superficial blisters Patient is on Xarelto, SCDs --Advance care planning Disease education conducted, care plan discussed, diagnosis discussed, prognosis discussed. Patient is full code. Treatment plan , discharge planning discussed patient acknowledged understanding and agreement with care plan. +30 minutes. Strongly counseled the importance of adhering to treatment plan We will monitor the patient and adjust management as needed We will closely monitor patient and adjust management as needed Plan of care reviewed with the patient his nurse case management 10/06/2021; pending wound care evaluation History Interval history: I have seen and examined the patient at the bedside Patient's chart and medications reviewed No new events reported by the nursing Patient feels slightly better Vital signs noted Hospitalist Physical - Constitutional Vitals: Temp Pulse Resp BP Pulse Ox 97.4 F L 108 H 22 126/75 93 10/06/21 04:22 10/06/21 08:55 10/06/21 08:55 10/06/21 04:22 10/06/21 09:00 General appearance: Present: severe distress, well-nourished, other (On BiPAP on admission now on nasal cannula oxygen) - EENT Eyes: Present: PERRL, EOM intact - Neck Neck: Present: supple, normal ROM - Respiratory Respiratory effort: normal Respiratory: bilateral: diminished, negative: rales, rhonchi, wheezing - Cardiovascular Rhythm: regular Heart Sounds: Present: S1 & S2 - Extremities Extremities: no ischemia Extremity abnormal: edema, erythema, other (Right leg blisters on the richards, left leg abrasion big red lesion; pending wound care evaluation) - Abdominal General gastrointestinal: soft, non-tender, non-distended, normal bowel sounds - Integumentary Integumentary: Present: clear, warm - Psychiatric Psychiatric: appropriate mood/affect, cooperative - Neurologic Neurologic: CNII-XII intact, moves all extremities HEART Score - HEART Score Risk factors: > 3 risk factors or hx of atherosclerotic disease Troponin: Troponin T 0.026 ng/mL (0.00-0.029) 10/04/21 21:06 Troponin: 1-3x normal limit - Critical Actions Critical Actions: 4-6 pts:12-16.6% risk of adverse cardiac event. Should be admitted Results - Labs CBC & Chem 7: 10/06/21 16:54 10/06/21 16:54 Labs: Laboratory Last Values WBC 10.7 K/mm3 (4.5-11.0) 10/05/21 05:52 RBC 3.15 M/mm3 (3.65-5.03) L 10/05/21 05:52 Hgb 9.6 gm/dl (11.8-15.2) L 10/06/21 05:09 Hct 30.3 % (35.5-45.6) L 10/06/21 05:09 MCV 89 fl (84-94) 10/05/21 05:52 MCH 29 pg (28-32) 10/05/21 05:52 MCHC 33 % (32-34) 10/05/21 05:52 RDW 17.2 % (13.2-15.2) H 10/05/21 05:52 Plt Count 409 K/mm3 (140-440) 10/05/21 05:52 Lymph % (Auto) 11.2 % (13.4-35.0) L 10/04/21 13:12 [place] % (Auto) 11.6 % (0.0-7.3) H 10/04/21 13:12 Eos % (Auto) 1.2 % (0.0-4.3) 10/04/21 13:12 Baso % (Auto) 0.8 % (0.0-1.8) 10/04/21 13:12 Lymph # (Auto) 1.5 K/mm3 (1.2-5.4) 10/04/21 13:12 [place] # (Auto) 1.6 K/mm3 (0.0-0.8) H 10/04/21 13:12 Eos # (Auto) 0.2 K/mm3 (0.0-0.4) 10/04/21 13:12 Baso # (Auto) 0.1 K/mm3 (0.0-0.1) 10/04/21 13:12 Add Manual Diff Complete 10/05/21 05:52 Total Counted 100 10/05/21 05:52 Seg Neutrophils % Financial Reporting Consultant 10/05/21 05:52 Seg Neuts % (Manual) 97.0 % (40.0-70.0) H 10/05/21 05:52 Band Neutrophils % 0 % 10/05/21 05:52 Lymphocytes % (Manual) 3.0 % (13.4-35.0) L 10/05/21 05:52 Reactive Lymphs % (Man) 0 % 10/05/21 05:52 Monocytes % (Manual) 0 % (0.0-7.3) 10/05/21 05:52 Eosinophils % (Manual) 0 % (0.0-4.3) 10/05/21 05:52 Basophils % (Manual) 0 % (0.0-1.8) 10/05/21 05:52 Metamyelocytes % 0 % 10/05/21 05:52 Myelocytes % 0 % 10/05/21 05:52 Promyelocytes % 0 % 10/05/21 05:52 Blast Cells % 0 % 10/05/21 05:52 Nucleated RBC % Not Reportable 10/05/21 05:52 Seg Neutrophils # 10.2 K/mm3 (1.8-7.7) H 10/04/21 13:12 Seg Neutrophils # Man 10.4 K/mm3 (1.8-7.7) H 10/05/21 05:52 Band Neutrophils # 0.0 K/mm3 10/05/21 05:52 Lymphocytes # (Manual) 0.3 K/mm3 (1.2-5.4) L 10/05/21 05:52 Abs React Lymphs (Man) 0.0 K/mm3 10/05/21 05:52 Monocytes # (Manual) 0.0 K/mm3 (0.0-0.8) 10/05/21 05:52 Eosinophils # (Manual) 0.0 K/mm3 (0.0-0.4) 10/05/21 05:52 Basophils # (Manual) 0.0 K/mm3 (0.0-0.1) 10/05/21 05:52 Metamyelocytes # 0.0 K/mm3 10/05/21 05:52 Myelocytes # 0.0 K/mm3 10/05/21 05:52 Promyelocytes # 0.0 K/mm3 10/05/21 05:52 Blast Cells # 0.0 K/mm3 10/05/21 05:52 WBC Morphology Not Reportable 10/05/21 05:52 Hypersegmented Neuts Not Reportable 10/05/21 05:52 Hyposegmented Neuts Not Reportable 10/05/21 05:52 Hypogranular Neuts Not Reportable 10/05/21 05:52 Smudge Cells Not Reportable 10/05/21 05:52 Toxic Granulation Not Reportable 10/05/21 05:52 Toxic Vacuolation Not Reportable 10/05/21 05:52 Dohle Bodies Not Reportable 10/05/21 05:52 Pelger-Huet Anomaly Not Reportable 10/05/21 05:52 Rod Rods Not Reportable 10/05/21 05:52 Platelet Estimate Consistent w auto 10/05/21 05:52 Clumped Platelets Not Reportable 10/05/21 05:52 Plt Clumps, EDTA Not Reportable 10/05/21 05:52 Large Platelets Not Reportable 10/05/21 05:52 Giant Platelets Not Reportable 10/05/21 05:52 Platelet Satelliting Not Reportable 10/05/21 05:52 Plt Morphology Comment Not Reportable 10/05/21 05:52 RBC Morphology Not Reportable 10/05/21 05:52 Dimorphic RBCs Not Reportable 10/05/21 05:52 Polychromasia Not Reportable 10/05/21 05:52 Hypochromasia Few 10/05/21 05:52 Poikilocytosis Not Reportable 10/05/21 05:52 Anisocytosis Few 10/05/21 05:52 Microcytosis Not Reportable 10/05/21 05:52 Macrocytosis Not Reportable 10/05/21 05:52 Spherocytes Not Reportable 10/05/21 05:52 Pappenheimer Bodies Not Reportable 10/05/21 05:52 Sickle Cells Not Reportable 10/05/21 05:52 Target Cells Not Reportable 10/05/21 05:52 Tear Drop Cells Not Reportable 10/05/21 05:52 Ovalocytes Not Reportable 10/05/21 05:52 Helmet Cells Not Reportable 10/05/21 05:52 [place] Bodies Not Reportable 10/05/21 05:52 [place] Rings Not Reportable 10/05/21 05:52 Yajaira Cells Not Reportable 10/05/21 05:52 Bite Cells Not Reportable 10/05/21 05:52 Crenated Cell Not Reportable 10/05/21 05:52 Elliptocytes Not Reportable 10/05/21 05:52 Acanthocytes (Spur) Not Reportable 10/05/21 05:52 Rouleaux Not Reportable 10/05/21 05:52 Hemoglobin C Crystals Not Reportable 10/05/21 05:52 Schistocytes Not Reportable 10/05/21 05:52 Malaria parasites Not Reportable 10/05/21 05:52 Michael Bodies Not Reportable 10/05/21 05:52 Hem Pathologist Commnt No 10/05/21 05:52 PT 40.7 Sec. (12.2-14.9) H 10/04/21 13:12 INR 3.58 (0.87-1.13) H 10/04/21 13:12 APTT 43.9 Sec. (24.2-36.6) H 10/04/21 13:12 ABG pH 7.260 pH Units (7.350-7.450) L 10/04/21 16:30 ABG pCO2 67.7 mm Hg 10/04/21 16:30 ABG pO2 97.1 mm Hg (80.0-90.0) H 10/04/21 16:30 ABG HCO3 29.7 mmol/L (20.0-26.0) H 10/04/21 16:30 ABG O2 Saturation 96.8 % (95.0-99.0) 10/04/21 16:30 ABG O2 Content 12.9 (0.0-44) 10/04/21 16:30 ABG Base Excess 1.6 mmol/L (-2.0-3.0) 10/04/21 16:30 ABG Hemoglobin 9.5 gm/dl (14.0-18.0) L 10/04/21 16:30 ABG Carboxyhemoglobin 1.9 % (0.0-5.0) 10/04/21 16:30 ABG Methemoglobin 0.4 % (0.0-1.5) 10/04/21 16:30 Oxyhemoglobin 94.6 % (95.0-99.0) L 10/04/21 16:30 FiO2 35 % 10/04/21 16:30 Sodium 137 mmol/L (137-145) 10/05/21 19:39 Potassium 4.9 mmol/L (3.6-5.0) 10/05/21 19:39 Chloride 98.0 mmol/L (98-107) 10/05/21 19:39 Carbon Dioxide 25 mmol/L (22-30) 10/05/21 19:39 Anion Gap 19 mmol/L 10/05/21 19:39 BUN 69 mg/dL (9-20) H 10/05/21 19:39 Creatinine 2.2 mg/dL (0.8-1.3) H 10/05/21 19:39 Estimated GFR 31 ml/min 10/05/21 19:39 BUN/Creatinine Ratio 31 % 10/05/21 19:39 Glucose 214 mg/dL (75-100) H 10/05/21 19:39 POC Glucose 307 mg/dL (70-105) H 10/06/21 08:51 Calcium 9.1 mg/dL (8.4-10.2) 10/05/21 19:39 Magnesium 2.50 mg/dL (1.7-2.3) H 10/04/21 13:12 Iron 16 ug/dL (49-181) L 10/05/21 19:39 TIBC 389 mcg/dL (250-450) 10/05/21 19:39 % Saturation 5.90 % 10/05/21 07:13 Transferrin 317 mg/dl (180-329) 10/05/21 07:13 Total Bilirubin 0.50 mg/dL (0.1-1.2) 10/05/21 05:52 AST 35 units/L (5-40) 10/05/21 05:52 ALT 24 units/L (7-56) 10/05/21 05:52 Alkaline Phosphatase 118 units/L (35-129) 10/05/21 05:52 Total Creatine Kinase 200 units/L (55-170) H 10/05/21 19:39 Troponin T 0.026 ng/mL (0.00-0.029) 10/04/21 21:06 NT-Pro-B Natriuret Pep 9268 pg/mL (0-900) H 10/04/21 13:12 Total Protein 7.3 g/dL (6.3-8.2) 10/05/21 05:52 Albumin 3.1 g/dL (3.9-5) L 10/05/21 05:52 Albumin/Globulin Ratio 0.7 % 10/05/21 05:52 Triglycerides 97 mg/dL (2-149) 10/04/21 13:12 Cholesterol 100 mg/dL (50-199) 10/04/21 13:12 LDL Cholesterol Direct 47 mg/dL (50-130) L 10/04/21 13:12 HDL Cholesterol 38 mg/dL (40-59) L 10/04/21 13:12 Cholesterol/HDL Ratio 2.63 % 10/04/21 13:12 Vitamin B12 900.5 pg/mL (211-911) 10/05/21 07:13 PTH Intact 109.2 pg/mL (15-65) H 10/05/21 Unknown Microbiology: Microbiology 10/04/21 15:49 Peripheral/Venous Blood Culture - Preliminary NO GROWTH AFTER 24 HOURS 10/04/21 16:39 Peripheral/Venous Blood Culture - Preliminary NO GROWTH AFTER 24 HOURS Joaquin/IV: Voiding Method Toilet Active Medications - Current Medications Current Medications: Generic Name Dose Route Start Last Admin Trade Name Freq PRN Reason Stop Dose Admin Acetaminophen 650 mg 10/04/21 20:23 Acetaminophen 325 Mg Tab PO Q4H PRN Pain MILD(1-3)/Fever >100.5/CURTIS Albuterol 2.5 mg 10/04/21 20:32 Albuterol 2.5 Mg/3 Ml Nebu IH Q4HRT PRN Shortness Of Breath Albuterol/Ipratropium 1 ampul 10/05/21 14:00 10/06/21 08:54 Ipratropium/Albuterol Sulfate 3 Ml Ampul.Neb IH 1 ampul Q6HRT MOOKIE Administration Aspirin 81 mg 10/04/21 21:00 10/05/21 10:41 Aspirin 81 Mg Tab Chew PO 81 mg QDAY MOOKIE Administration Atorvastatin Calcium 40 mg 10/04/21 22:00 10/05/21 21:47 Atorvastatin 40 Mg Tab PO 40 mg QHS MOOKIE Administration Azithromycin 500 mg 10/05/21 22:00 10/05/21 21:47 Azithromycin 250 Mg Tab PO 10/08/21 22:01 500 mg Q24H MOOKIE Administration Protocol Budesonide 0.5 mg 10/05/21 20:00 10/06/21 08:54 Budesonide 0.5 Mg/2 Ml Nebu IH 0.5 mg Q12HRT MOOKIE Administration Furosemide 40 mg 10/05/21 16:00 10/06/21 00:19 Furosemide 40 Mg/4 Ml Inj IV 40 mg Q8H MOOKIE Administration Gabapentin 300 mg 10/04/21 22:00 10/05/21 21:47 Gabapentin 300 Mg Cap PO 300 mg BID MOOKIE Administration Heparin Sodium (Porcine) 5,000 unit 10/04/21 22:00 10/05/21 21:48 Heparin 5,000 Unit/1 Ml Vial SUB-Q 5,000 unit Q12HR MOOKIE Administration Hydromorphone HCl 0.5 mg 10/04/21 20:24 Hydromorphone 0.5 Mg/0.5 Ml Inj IV Q3H PRN Pain , Severe (7-10) Ceftriaxone Sodium 2 gm in 100 mls @ 200 mls/hr 10/04/21 22:00 10/05/21 21:49 Rocephin/Ns 2 Gm/100 Ml IV 200 mls/hr Q24H MOOKIE Administration Protocol Methylprednisolone Sodium Succinate 80 mg 10/04/21 22:00 10/06/21 06:33 Methylprednisolone Sod Succinate 125 Mg/2 Ml Inj IV 80 mg Q8H MOOKIE Administration Metoclopramide HCl 10 mg 10/04/21 20:24 Metoclopramide 10 Mg/2 Ml Inj IV Q6H PRN Nausea And Vomiting Metoprolol Succinate 200 mg 10/04/21 22:00 10/05/21 10:43 Metoprolol Succinate Xl 100 Mg Tab PO 200 mg QDAY MOOKIE Administration Morphine Sulfate 2 mg 10/04/21 20:24 Morphine 2 Mg/1 Ml Inj IV Q4H PRN Pain, Moderate (4-6) Ondansetron HCl 4 mg 10/04/21 20:23 Ondansetron 4 Mg/2 Ml Inj IV Q3H PRN Nausea And Vomiting Oxycodone/Acetaminophen 1 tab 10/04/21 20:24 10/05/21 22:06 Oxycodone /Acetaminophen 5-325mg Tab PO 1 tab Q6H PRN Administration Pain, Moderate (4-6) Sodium Chloride 10 ml 10/04/21 22:00 10/05/21 21:49 Sodium Chloride 0.9% 10 Ml Flush Syringe IV 10 ml BID MOOKIE Administration Sodium Chloride 10 ml 10/04/21 20:23 Sodium Chloride 0.9% 10 Ml Flush Syringe IV PRN PRN LINE FLUSH
[2021-10-06] MEDS ORDERED: EPOETIN ALFA-EPBX 20,000 UNIT/1 ML VIAL SUB-Q ONE (12:25)
--- NOTE | 2021-10-06 12:26 | Progress Note ---
Assessment and Plan Acute Kidney injury, Unknown CKD Hyperkalemia Acute hypoxic respiratory failure Acute CHF HTN Obesity Anemia Afib -Cr stable -CK WNLs -Renal US -ve for hydronephrosis -No BL Cr available so unknown if has CKD or not -K better with kayxelayte, low K diet -Inc lasix to 40 mg q6H IV, CXR congested, has 3+ leg edema, needs aggressive diuresis -Strict I/Os -Renally dose all meds -Avoid Nephrotoxic meds -Held Aldactone for now due to renal failure/hyperkalemia -Check Iron panel for ACD and PTH for 2HPT as signs of possible CKD Subjective Date of service: 10/06/21 Interval history: Making urine. has leg edema. Objective - Exam Narrative Exam: General appearance: Present: severe distress, well-nourished - EENT Eyes: Present: PERRL ENT: hearing intact, clear oral mucosa - Neck Neck: Present: supple, normal ROM - Respiratory Respiratory effort: normal Respiratory: bilateral: diminished, rales, rhonchi - Cardiovascular Heart rate: 98 Rhythm: regular Heart Sounds: Present: S1 & S2. Absent: rub, click - Extremities Extremities: pulses symmetrical, No edema Peripheral Pulses: within normal limits - Abdominal General gastrointestinal: Present: soft, non-tender, non-distended, normal bowel sounds Male genitourinary: Present: normal - Integumentary Integumentary: Present: clear, warm, dry - Musculoskeletal Musculoskeletal: gait normal, strength equal bilaterally - Psychiatric Psychiatric: appropriate mood/affect, intact judgment & insight - Neurologic Neurologic: CNII-XII intact, moves all extremities - Allied Health Allied health notes reviewed: nursing, RT, social work, case management - Vital Signs Vital signs: Vital Signs - 12hr 10/06/21 10/06/21 10/06/21 01:00 02:00 02:53 Temperature Pulse Rate 109 H Pulse Rate [ 97 H Bilateral Throughout] Respiratory 25 H 28 H Rate Respiratory 22 Rate [Bilateral Throughout] Blood Pressure O2 Sat by Pulse 100 98 Oximetry 10/06/21 10/06/21 10/06/21 04:22 08:55 09:00 Temperature 97.4 F L Pulse Rate 98 H Pulse Rate [ 108 H Bilateral Throughout] Respiratory 22 Rate Respiratory 22 Rate [Bilateral Throughout] Blood Pressure 126/75 O2 Sat by Pulse 74 L 93 Oximetry - Lab 10/06/21 05:09 10/06/21 13:43 Most recent lab results ABG pH 7.260 pH Units (7.350-7.450) L 10/04/21 16:30 ABG pCO2 67.7 mm Hg 10/04/21 16:30 ABG pO2 97.1 mm Hg (80.0-90.0) H 10/04/21 16:30 ABG HCO3 29.7 mmol/L (20.0-26.0) H 10/04/21 16:30 ABG O2 Saturation 96.8 % (95.0-99.0) 10/04/21 16:30 Calcium 9.1 mg/dL (8.4-10.2) 10/05/21 19:39 Magnesium 2.50 mg/dL (1.7-2.3) H 10/04/21 13:12 Medications & Allergies - Medications Allergies/Adverse Reactions: Allergies No Known Allergies Allergy (Unverified 10/04/21 12:35) Home Medications: Home Medications Medication Instructions Recorded Confirmed Last Taken Type Albuterol Sulfate [Proair 90 mcg PO PRN 10/04/21 10/04/21 Unknown History Respiclick] Aspirin [Aspirin BABY CHEW TAB] 81 mg PO QDAY 10/04/21 10/04/21 Unknown History AtorvaSTATin [Lipitor] 40 mg PO QHS 10/04/21 10/04/21 Unknown History Gabapentin 300 mg PO BID 10/04/21 10/04/21 Unknown History Losartan [Cozaar] 25 mg PO QDAY 10/04/21 10/04/21 Unknown History Metoprolol Succinate [Kapspargo 200 mg PO DAILY 10/04/21 10/04/21 Unknown History Sprinkle] Rivaroxaban [Xarelto] 20 mg PO DAILY 10/04/21 10/04/21 Unknown History Active Medications: Generic Name Dose Route Start Last Admin Trade Name Freq PRN Reason Stop Dose Admin Acetaminophen 650 mg 10/04/21 20:23 Acetaminophen 325 Mg Tab PO Q4H PRN Pain MILD(1-3)/Fever >100.5/CURTIS Albuterol 2.5 mg 10/04/21 20:32 Albuterol 2.5 Mg/3 Ml Nebu IH Q4HRT PRN Shortness Of Breath Albuterol/Ipratropium 1 ampul 10/05/21 14:00 10/06/21 08:54 Ipratropium/Albuterol Sulfate 3 Ml Ampul.Neb IH 1 ampul Q6HRT MOOKIE Administration Aspirin 81 mg 10/04/21 21:00 10/05/21 10:41 Aspirin 81 Mg Tab Chew PO 81 mg QDAY MOOKIE Administration Atorvastatin Calcium 40 mg 10/04/21 22:00 10/05/21 21:47 Atorvastatin 40 Mg Tab PO 40 mg QHS MOOKIE Administration Azithromycin 500 mg 10/05/21 22:00 10/05/21 21:47 Azithromycin 250 Mg Tab PO 10/08/21 22:01 500 mg Q24H MOOKIE Administration Protocol Budesonide 0.5 mg 10/05/21 20:00 10/06/21 08:54 Budesonide 0.5 Mg/2 Ml Nebu IH 0.5 mg Q12HRT MOOKIE Administration Epoetin Jamir-epbx 20,000 unit 10/06/21 12:25 Epoetin Jamir-Epbx 20,000 Unit/1 Ml Vial SUB-Q 10/06/21 12:26 BRANDI ONE Furosemide 40 mg 10/06/21 13:00 Furosemide 40 Mg/4 Ml Inj IV Q6H MOOKIE Gabapentin 300 mg 10/04/21 22:00 10/05/21 21:47 Gabapentin 300 Mg Cap PO 300 mg BID MOOKIE Administration Heparin Sodium (Porcine) 5,000 unit 10/04/21 22:00 10/05/21 21:48 Heparin 5,000 Unit/1 Ml Vial SUB-Q 5,000 unit Q12HR MOOKIE Administration Hydromorphone HCl 0.5 mg 10/04/21 20:24 Hydromorphone 0.5 Mg/0.5 Ml Inj IV Q3H PRN Pain , Severe (7-10) Ceftriaxone Sodium 2 gm in 100 mls @ 200 mls/hr 10/04/21 22:00 10/05/21 21:49 Rocephin/Ns 2 Gm/100 Ml IV 200 mls/hr Q24H MOOKIE Administration Protocol Ferric Sodium Gluconate 110 mls @ 100 mls/hr 10/06/21 13:00 Complex 125 mg/ Sodium IV 10/13/21 11:05 Chloride DAILY [facility] Methylprednisolone Sodium Succinate 80 mg 10/04/21 22:00 10/06/21 06:33 Methylprednisolone Sod Succinate 125 Mg/2 Ml Inj IV 80 mg Q8H MOOKIE Administration Metoclopramide HCl 10 mg 10/04/21 20:24 Metoclopramide 10 Mg/2 Ml Inj IV Q6H PRN Nausea And Vomiting Metoprolol Succinate 200 mg 10/04/21 22:00 10/05/21 10:43 Metoprolol Succinate Xl 100 Mg Tab PO 200 mg QDAY MOOKIE Administration Morphine Sulfate 2 mg 10/04/21 20:24 Morphine 2 Mg/1 Ml Inj IV Q4H PRN Pain, Moderate (4-6) Ondansetron HCl 4 mg 10/04/21 20:23 Ondansetron 4 Mg/2 Ml Inj IV Q3H PRN Nausea And Vomiting Oxycodone/Acetaminophen 1 tab 10/04/21 20:24 10/05/21 22:06 Oxycodone /Acetaminophen 5-325mg Tab PO 1 tab Q6H PRN Administration Pain, Moderate (4-6) Sodium Chloride 10 ml 10/04/21 22:00 10/05/21 21:49 Sodium Chloride 0.9% 10 Ml Flush Syringe IV 10 ml BID MOOKIE Administration Sodium Chloride 10 ml 10/04/21 20:23 Sodium Chloride 0.9% 10 Ml Flush Syringe IV PRN PRN LINE FLUSH
[2021-10-06 14:24] LABS: Calcium 9.2 mg/dL (8.4-10.2)
[2021-10-06] MEDS: SODIUM FERRIC GLUCON/SUCRO 125 MG in SODIUM CHLORIDE 0.9% 100 ML IV SCH (14:25)
--- NOTE | 2021-10-06 16:27 | Progress Note ---
Assessment and Plan Pt is a 60-year-old male with a hx of COPD (on 3L home O2), CHF, morbid obesity/SUNIL, tobacco abuse, and EtOH abuse who presented in respiratory distress requiring BiPAP. Of note, pt has a hx of COVID-19 PNA as well in May 2020 requiring a prolonged ICU stay and trach in the setting of ongoing hypoxic respiratory failure. Pt is previously unknown to our practice. Assessment: Acute on Chronic Respiratory Failure (on 3L home O2 per pt report) COPD ?Exacerbation Acute on Chronic HFpEF Cardiomyopathy (EF 45-50% in 2020, no ischemic workup on file, pt denies hx of GA/CAD/stents) REECE / ?CKD Anemia Permanent AF (s/p SERGIO in 2018, on Xarelto) HTN DM2 Morbid Obesity SUNIL H/o COVID-19 PNA (05/2020-06/2020, requiring a prolonged ICU admission & tracheostomy) Tobacco Abuse EtOH Abuse (drinks 1/5 pint liquor per day) Sacral Ulcer Medical Non-Compliance Echocardiogram 10/04/2021: Left ventricule is normal size. Overall LV systolic function appears normal. Mild concentric left ventricular hypertrophy. Cannot assess regional wall motion abnormalities. Unable to assess. LVEF is 55 to 60%. Technically limited study due to body habitus Plan: Consider CIWA protocol. Echo as above. Xarelto not in JUL. Ordered- first dose this evening. Continue IV diuresis with strict I/Os and close monitoring of renal indices & electrolytes. IV Lasix increased to 40mg q6h per Nephro recs. Continue BB, statin, bAsa; Aldactone & Losartan held in light of renal fxn. Continue o2 and nebulizer treatments as needed. Wound care consult recommended; LLE wound from ? skin infection per patient/family Elevated blood glucose level. Management per primary. Of note, pt's would like to be updated daily regarding changes in status and plan. Pt seen in conjunction with Dr. Moses, who agrees with the assessment and p shy of care. Subjective Date of service: 10/06/21 Principal diagnosis: COPD, acute on chronic HFmrEF Interval history: Patient seen and examined in hospital room today. He is sitting on the side of the bed, states he is feeling better than he did yesterday. Of note, states that his legs have been weeping, however that has slightly improved. Telemetry: a fib 90's; occasionally up into 130's with activity Objective Vital Signs Temp Pulse Pulse Resp Resp BP Pulse Ox 10/06/21 15:07 98 H 20 10/06/21 14:00 91 H 28 H 97 10/06/21 09:00 93 10/06/21 08:55 108 H 22 10/06/21 04:22 97.4 F L 98 H 22 126/75 74 L 10/06/21 02:53 28 H 98 10/06/21 02:00 97 H 22 10/06/21 01:00 109 H 25 H 100 10/06/21 00:08 97.6 F 99 H 20 117/66 93 10/05/21 21:05 96 10/05/21 21:03 97 H 20 10/05/21 20:18 97.8 F 74 19 107/70 91 - Physical Examination General: No Apparent Distress HEENT: Positive: EOMI, Normocephaly Neck: Positive: neck supple Cardiac: Positive: irregularly irregular, S1/S2. Negative: Audible Murmur Lungs: Positive: Decreased Breath Sounds Neuro: Positive: Grossly Intact Abdomen: Positive: Soft Skin: Positive: Wound (sacral, left knee, left lateral calf ), Moist Extremities: Present: +4 Edema, Ulceration Noted (BLE blistering), warm, Other (venous stasis changes) - Labs and Meds CBC 10/06/21 Range/Units 05:09 Hgb 9.6 L (11.8-15.2) gm/dl Hct 30.3 L (35.5-45.6) % Comprehensive Metabolic Panel 10/05/21 10/06/21 Range/Units 19:39 13:43 Sodium 137 139 (137-145) mmol/L Potassium 4.9 4.1 (3.6-5.0) mmol/L Chloride 98.0 97.9 L (98-107) mmol/L Carbon Dioxide 25 29 (22-30) mmol/L BUN 69 H 67 H (9-20) mg/dL Creatinine 2.2 H 2.0 H (0.8-1.3) mg/dL Glucose 214 H 184 H (75-100) mg/dL Calcium 9.1 9.2 (8.4-10.2) mg/dL - Imaging and Cardiology EKG: report reviewed, image reviewed Echo: report reviewed (06/09/2020: EF 45-50%, mildly dilated LA, mild AI, trace MR) - Telemetry EKG Rhythm: Atrial Fibrillation - Allied health notes Allied health notes reviewed: nursing
[2021-10-06 17:26] LABS: Hematocrit 31.9 % (35.5-45.6); Hemoglobin 9.9 gm/dl (11.8-15.2); Mean Corpuscular HGB Conc 31 % (32-34); Mean Corpuscular Volume 89 fl (84-94); Platelet Count 429 K/mm3 (140-440); Red Blood Count 3.57 M/mm3 (3.65-5.03); Red Cell Distribution Width 17.2 % (13.2-15.2)
[2021-10-06 17:38] LABS: INR 1.23 (0.87-1.13)
[2021-10-06 17:39] LABS: Partial Thromboplastin Time 28.6 Sec. (24.2-36.6)
[2021-10-06] MEDS: RIVAROXABAN 20 MG TAB PO SCH (19:36)
[2021-10-06] MEDS: cefTRIAXone/NS 2 GM/100 ML 2 GM/100 ML BAG IV SCH (22:32)
[2021-10-06] MEDS: AZITHROMYCIN 250 MG TAB PO SCH (22:35)
[2021-10-06] MEDS: oxyCODONE /ACETAMINOPHEN 5-325MG TAB PO PRN (22:41)
[2021-10-07] MEDS: FUROSEMIDE 40 MG/4 ML INJ IV SCH ×4 (01:04→20:10)
[2021-10-07] MEDS: IPRATROPIUM/ALBUTEROL SULFATE 3 ML AMPUL.NEB IH SCH ×4 (01:31→19:56)
[2021-10-07] MEDS: methylPREDNISolone Sod Succinate 125 MG/2 ML INJ IV SCH ×3 (05:36→22:29)
[2021-10-07] MEDS: MORPHINE 2 MG/1 ML INJ IV PRN (06:48)
[2021-10-07] MEDS: BUDESONIDE 0.5 MG/2 ML NEBU IH SCH ×2 (09:02→19:56)
[2021-10-07] MEDS: METOPROLOL SUCCINATE XL 100 MG TAB PO SCH (09:31)
[2021-10-07] MEDS: ASPIRIN 81 MG TAB CHEW PO SCH (09:31)
[2021-10-07] MEDS: GABAPENTIN 300 MG CAP PO SCH ×2 (09:31→22:28)
[2021-10-07] MEDS: SODIUM FERRIC GLUCON/SUCRO 125 MG in SODIUM CHLORIDE 0.9% 100 ML IV SCH (09:37)
--- NOTE | 2021-10-07 11:37 | Progress Note ---
Assessment and Plan Pt is a 60-year-old male with a hx of COPD (on 3L home O2), CHF, morbid obesity/SUNIL, tobacco abuse, and EtOH abuse who presented in respiratory distress requiring BiPAP. Of note, pt has a hx of COVID-19 PNA as well in May 2020 requiring a prolonged ICU stay and trach in the setting of ongoing hypoxic respiratory failure. Pt is previously unknown to our practice. Acute on Chronic Respiratory Failure (on 3L home O2 per pt report) COPD ?Exacerbation Acute on Chronic HFpEF Cardiomyopathy (EF 45-50% in 2020, no ischemic workup on file, pt denies hx of TX/CAD/stents) REECE / ?CKD Anemia Permanent AF (s/p SERGIO in 2017, on Xarelto) HTN DM2 Morbid Obesity SUNIL H/o COVID-19 PNA (05/2020-06/2020, requiring a prolonged ICU admission & tracheostomy) Tobacco Abuse EtOH Abuse (drinks 1/5 pint liquor per day) Sacral Ulcer Medical Non-Compliance Echocardiogram 10/04/2021: Left ventricule is normal size. Overall LV systolic function appears normal. Mild concentric left ventricular hypertrophy. Cannot assess regional wall motion abnormalities. Unable to assess. LVEF is 55 to 60%. Technically limited study due to body habitus Plan: Anticoagulated on Xarelto Patient currently on IV Lasix 40mg q6h per Nephro. Will defer volume management to nephrology due to renal function Continue IV diuresis with strict I/Os and close monitoring of renal indices & electrolytes Continue BB, statin, bAsa; Aldactone & Losartan held in light of renal fxn. Wound care has been consulted for LLE wound Records requested from [facility]. Still awaiting records Pt seen in conjunction with Dr. Go who agrees with the assessment and plan of care. - Patient Problems (1) Acute exacerbation of chronic obstructive pulmonary disease (COPD) Current Visit: Yes Status: Acute (2) Acute respiratory failure with hypoxia and hypercapnia Current Visit: Yes Status: Acute (3) Bilateral lower leg cellulitis Current Visit: Yes Status: Acute (4) Chronic atrial fibrillation Current Visit: Yes Status: Acute (5) Pulmonary edema Current Visit: Yes Status: Acute (6) Renal insufficiency Current Visit: Yes Status: Acute (7) Morbid obesity with BMI of 40.0-44.9, adult Current Visit: Yes Status: Chronic Subjective Date of service: 10/07/21 Principal diagnosis: COPD, acute on chronic HFmrEF Interval history: Patient sitting in bed in no acute distress. Patient reports feeling better A. fib rate 100 Objective Vital Signs Temp Pulse Pulse Resp Resp BP Pulse Ox 10/07/21 09:31 85 142/86 10/07/21 09:08 94 10/07/21 09:02 108 H 18 10/07/21 08:06 97.5 F L 85 18 142/86 89 10/07/21 06:48 22 10/07/21 03:57 97.6 F 113 H 18 128/87 91 10/07/21 01:29 113 H 27 H 10/07/21 01:00 113 H 27 H 95 10/07/21 00:31 98.1 F 89 18 147/95 90 10/06/21 22:41 22 10/06/21 20:33 9 L 10/06/21 20:31 90 20 10/06/21 20:17 22 98 10/06/21 20:09 91 H 10/06/21 19:54 97.6 F 97 H 18 143/87 92 10/06/21 15:07 98 H 20 10/06/21 14:00 91 H 28 H 97 - Physical Examination General: No Apparent Distress HEENT: Positive: EOMI, Normocephaly Neck: Positive: neck supple Cardiac: Positive: irregularly irregular Lungs: Positive: Decreased Breath Sounds, Wheezes Neuro: Positive: Grossly Intact Abdomen: Positive: Soft Skin: Positive: Wound (sacral, left knee, left lateral calf ), Moist Extremities: Present: +4 Edema, Ulceration Noted (BLE blistering), warm, Other (venous stasis changes) - Labs and Meds Coagulation 10/06/21 Range/Units 16:54 PT 16.9 H (12.2-14.9) Sec. INR 1.23 H (0.87-1.13) APTT 28.6 (24.2-36.6) Sec. CBC 10/06/21 Range/Units 16:54 WBC 15.6 H (4.5-11.0) K/mm3 RBC 3.57 L (3.65-5.03) M/mm3 Hgb 9.9 L (11.8-15.2) gm/dl Hct 31.9 L (35.5-45.6) % Plt Count 429 (140-440) K/mm3 Comprehensive Metabolic Panel 10/06/21 10/06/21 Range/Units 13:43 16:54 Sodium 139 (137-145) mmol/L Potassium 4.1 (3.6-5.0) mmol/L Chloride 97.9 L (98-107) mmol/L Carbon Dioxide 29 (22-30) mmol/L BUN 67 H (9-20) mg/dL Creatinine 2.0 H 2.1 H (0.8-1.3) mg/dL Glucose 184 H (75-100) mg/dL Calcium 9.2 (8.4-10.2) mg/dL - Imaging and Cardiology EKG: report reviewed, image reviewed Echo: report reviewed (06/09/2020: EF 45-50%, mildly dilated LA, mild AI, trace MR) - Telemetry EKG Rhythm: Atrial Fibrillation - EKG Supraventricular dysrhythmia: atrial fibrillation - Allied health notes Allied health notes reviewed: nursing
--- NOTE | 2021-10-07 11:45 | Progress Note ---
Assessment and Plan Assessment: Acute Kidney injury, Unknown CKD Hyperkalemia Acute hypoxic respiratory failure Acute CHF Hypertension Obesity Anemia Afib Plan: -Renal labs reviewed. Serum creatinine 2.1 today, yesterday's was 2.2, stable, UOP 2300 ml -No baseline serum creatinine available so unknown if has CKD or not -Renal US was negative for hydronephrosis -Held Aldactone for now due to renal failure/hyperkalemia -CXR congested, has 3+ leg edema, needs aggressive diuresis- on Lasix 40 mg IV every 6 hours for now -Low Iron of 16- on Ferric Gluconate 125 mcg@ 100 ml/he x 8 doses -PTH 109.2, suggestive of CKD -Renally dose all medications -Avoid Nephrotoxic agents -Strict I/O's daily- intake 800 ml, UOP 2300 ml -Continue to monitor renal function closely -Plan of care reviewed by Dr. Aguilar Subjective Date of service: 10/07/21 Principal diagnosis: COPD, acute on chronic HFmrEF Interval history: Patient seen sitting at edge of bed. Reviewed renal labs. He asked when can he go home, advised him when he is stable as he is currently undergoing diuresis for volume overload Objective - Vital Signs Vital signs: Vital Signs - 12hr 10/07/21 10/07/21 10/07/21 00:31 01:00 01:29 Temperature 98.1 F Pulse Rate 89 113 H Pulse Rate [ 113 H Bilateral Throughout] Respiratory 18 27 H Rate Respiratory 27 H Rate [Bilateral Throughout] Blood Pressure 147/95 O2 Sat by Pulse 90 95 Oximetry 10/07/21 10/07/21 10/07/21 03:57 06:48 08:06 Temperature 97.6 F 97.5 F L Pulse Rate 113 H 85 Pulse Rate [ Bilateral Throughout] Respiratory 18 22 18 Rate Respiratory Rate [Bilateral Throughout] Blood Pressure 128/87 142/86 O2 Sat by Pulse 91 89 Oximetry 10/07/21 10/07/21 10/07/21 09:02 09:08 09:31 Temperature Pulse Rate 85 Pulse Rate [ 108 H Bilateral Throughout] Respiratory Rate Respiratory 18 Rate [Bilateral Throughout] Blood Pressure 142/86 O2 Sat by Pulse 94 Oximetry - General Appearance General appearance: well-developed, appears stated age, obese, fatigue EENT: ATNC, PERRL, hearing intact, vision intact Neck: no JVD, supple Respiratory: Present: Decreased Breath Sounds Cardiology: S1S2 Gastrointestinal: normoactive bowel sounds Integumentary: warm and dry Neurologic: alert and oriented x3 Musculoskeletal: joint swelling, other (3+ edema to BLE) - Lab 10/06/21 16:54 10/06/21 16:54 Most recent lab results ABG pH 7.260 pH Units (7.350-7.450) L 10/04/21 16:30 ABG pCO2 67.7 mm Hg 10/04/21 16:30 ABG pO2 97.1 mm Hg (80.0-90.0) H 10/04/21 16:30 ABG HCO3 29.7 mmol/L (20.0-26.0) H 10/04/21 16:30 ABG O2 Saturation 96.8 % (95.0-99.0) 10/04/21 16:30 Calcium 9.2 mg/dL (8.4-10.2) 10/06/21 13:43 Magnesium 2.50 mg/dL (1.7-2.3) H 10/04/21 13:12 Medications & Allergies - Medications Allergies/Adverse Reactions: Allergies No Known Allergies Allergy (Unverified 10/04/21 12:35) Home Medications: Home Medications Medication Instructions Recorded Confirmed Last Taken Type Albuterol Sulfate [Proair 90 mcg PO PRN 10/04/21 10/04/21 Unknown History Respiclick] Aspirin [Aspirin BABY CHEW TAB] 81 mg PO QDAY 10/04/21 10/04/21 Unknown History AtorvaSTATin [Lipitor] 40 mg PO QHS 10/04/21 10/04/21 Unknown History Gabapentin 300 mg PO BID 10/04/21 10/04/21 Unknown History Losartan [Cozaar] 25 mg PO QDAY 10/04/21 10/04/21 Unknown History Metoprolol Succinate [Kapspargo 200 mg PO DAILY 10/04/21 10/04/21 Unknown History Sprinkle] Rivaroxaban [Xarelto] 20 mg PO DAILY 10/04/21 10/04/21 Unknown History Active Medications: Generic Name Dose Route Start Last Admin Trade Name Freq PRN Reason Stop Dose Admin Acetaminophen 650 mg 10/04/21 20:23 Acetaminophen 325 Mg Tab PO Q4H PRN Pain MILD(1-3)/Fever >100.5/CURTIS Albuterol 2.5 mg 10/04/21 20:32 Albuterol 2.5 Mg/3 Ml Nebu IH Q4HRT PRN Shortness Of Breath Albuterol/Ipratropium 1 ampul 10/05/21 14:00 10/07/21 09:02 Ipratropium/Albuterol Sulfate 3 Ml Ampul.Neb IH 1 ampul Q6HRT MOOKIE Administration Aspirin 81 mg 10/04/21 21:00 10/07/21 09:31 Aspirin 81 Mg Tab Chew PO 81 mg QDAY MOOKIE Administration Atorvastatin Calcium 40 mg 10/04/21 22:00 10/06/21 22:28 Atorvastatin 40 Mg Tab PO 40 mg QHS MOOKIE Administration Azithromycin 500 mg 10/05/21 22:00 10/06/21 22:35 Azithromycin 250 Mg Tab PO 10/08/21 22:01 500 mg Q24H MOOKIE Administration Protocol Budesonide 0.5 mg 10/05/21 20:00 10/07/21 09:02 Budesonide 0.5 Mg/2 Ml Nebu IH 0.5 mg Q12HRT MOOKIE Administration Furosemide 40 mg 10/06/21 13:00 10/07/21 07:32 Furosemide 40 Mg/4 Ml Inj IV 40 mg Q6H MOOKIE Administration Gabapentin 300 mg 10/04/21 22:00 10/07/21 09:31 Gabapentin 300 Mg Cap PO 300 mg BID MOOKIE Administration Hydromorphone HCl 0.5 mg 10/04/21 20:24 Hydromorphone 0.5 Mg/0.5 Ml Inj IV Q3H PRN Pain , Severe (7-10) Ceftriaxone Sodium 2 gm in 100 mls @ 200 mls/hr 10/04/21 22:00 10/06/21 22:32 Rocephin/Ns 2 Gm/100 Ml IV 10/08/21 22:29 200 mls/hr Q24H MOOKIE Administration Protocol Ferric Sodium Gluconate 110 mls @ 100 mls/hr 10/06/21 13:00 10/07/21 09:37 Complex 125 mg/ Sodium IV 10/13/21 11:05 100 mls/hr Chloride DAILY MOOKIE Administration Methylprednisolone Sodium Succinate 80 mg 10/04/21 22:00 10/07/21 05:36 Methylprednisolone Sod Succinate 125 Mg/2 Ml Inj IV 80 mg Q8H MOOKIE Administration Metoclopramide HCl 10 mg 10/04/21 20:24 Metoclopramide 10 Mg/2 Ml Inj IV Q6H PRN Nausea And Vomiting Metoprolol Succinate 200 mg 10/04/21 22:00 10/07/21 09:31 Metoprolol Succinate Xl 100 Mg Tab PO 200 mg QDAY MOOKIE Administration Morphine Sulfate 2 mg 10/04/21 20:24 10/07/21 06:48 Morphine 2 Mg/1 Ml Inj IV 2 mg Q4H PRN Administration Pain, Moderate (4-6) Ondansetron HCl 4 mg 10/04/21 20:23 Ondansetron 4 Mg/2 Ml Inj IV Q3H PRN Nausea And Vomiting Oxycodone/Acetaminophen 1 tab 10/04/21 20:24 10/06/21 22:41 Oxycodone /Acetaminophen 5-325mg Tab PO 1 tab Q6H PRN Administration Pain, Moderate (4-6) Rivaroxaban 20 mg 10/06/21 17:00 10/06/21 19:36 Rivaroxaban 20 Mg Tab PO 20 mg QPMDIAB MOOKIE Administration Protocol Sodium Chloride 10 ml 10/04/21 22:00 10/06/21 22:28 Sodium Chloride 0.9% 10 Ml Flush Syringe IV 10 ml BID MOOKIE Administration Sodium Chloride 10 ml 10/04/21 20:23 Sodium Chloride 0.9% 10 Ml Flush Syringe IV PRN PRN LINE FLUSH
--- NOTE | 2021-10-07 14:10 | Progress Note ---
Assessment and Plan 60 y/o obese male with acute respiratory failure. 10/07/21: Suggest dropping steroids to 40q12. Continue NIV at night. Patient has never been to our office and has never seen Dr. Valdes. Suggest getting [facility] records as he is likely confusing us with a pulm doc from there. Puldonovan us he appears to be stable. 10/06/21: WIll review office records tomorrow. Suggest dropping steroids down to 40q12. Follow up echo results. Continue NIV at night. Continue supplemental O2. 1. Suggest obtaining all records from [facility] 2. I cannot access my office records remotely but will review chart on Thursday 3. Would suggest fluid restriction and diuresis if renal oK 4. Will start to wean down steroids 5. Bipap QHS and PRN during the day 6. Will add BID pulmicort and continue scheduled duonebs 7. Patient would not answer if he is on oxygen therapy at home or not. Would suggest ambulatory walk test prior to discharge. Subjective Date of service: 10/07/21 Principal diagnosis: COPD, acute on chronic HFmrEF Interval history: No acute events. Stable on 3 liters. Wearing NIV at night. Objective Vital Signs - 12hr 10/07/21 10/07/21 10/07/21 03:57 06:48 08:06 Temperature 97.6 F 97.5 F L Pulse Rate 113 H 85 Pulse Rate [ Bilateral Throughout] Respiratory 18 22 18 Rate Respiratory Rate [Bilateral Throughout] Blood Pressure 128/87 142/86 O2 Sat by Pulse 91 89 Oximetry 10/07/21 10/07/21 10/07/21 09:02 09:08 09:31 Temperature Pulse Rate 85 Pulse Rate [ 108 H Bilateral Throughout] Respiratory Rate Respiratory 18 Rate [Bilateral Throughout] Blood Pressure 142/86 O2 Sat by Pulse 94 Oximetry 10/07/21 11:26 Temperature Pulse Rate 107 H Pulse Rate [ Bilateral Throughout] Respiratory 20 Rate Respiratory Rate [Bilateral Throughout] Blood Pressure 121/98 O2 Sat by Pulse 94 Oximetry Constitutional: no acute distress, alert, appears uncomfortable Eyes: non-icteric ENT: oropharynx moist Neck: other (large in circumference) Ascultation: Bilateral: rales CBC and BMP: 10/06/21 16:54 10/06/21 16:54 ABG, PT/INR, D-dimer: ABG ABG pH 7.260 pH Units (7.350-7.450) L 10/04/21 16:30 ABG pCO2 67.7 mm Hg 10/04/21 16:30 ABG pO2 97.1 mm Hg (80.0-90.0) H 10/04/21 16:30 ABG O2 Saturation 96.8 % (95.0-99.0) 10/04/21 16:30 PT/INR, D-dimer PT 16.9 Sec. (12.2-14.9) H 10/06/21 16:54 INR 1.23 (0.87-1.13) H 10/06/21 16:54 Abnormal lab findings: Abnormal Labs 10/04/21 10/04/21 10/04/21 12:37 13:12 13:12 WBC 13.6 H RBC 3.38 L Hgb 9.7 L Hct 30.3 L MCHC RDW 17.4 H Plt Count 456 H Lymph % (Auto) 11.2 L Gilliam % (Auto) 11.6 H Gilliam # (Auto) 1.6 H Seg Neutrophils % 75.2 H Seg Neuts % (Manual) Lymphocytes % (Manual) Seg Neutrophils # 10.2 H Seg Neutrophils # Man Lymphocytes # (Manual) PT 40.7 H INR 3.58 H APTT 43.9 H ABG pH ABG pO2 ABG HCO3 ABG Hemoglobin Oxyhemoglobin Sodium Potassium Chloride BUN Creatinine Glucose POC Glucose 112 H Magnesium Iron Total Creatine Kinase Troponin T NT-Pro-B Natriuret Pep Albumin LDL Cholesterol Direct HDL Cholesterol PTH Intact 10/04/21 10/04/21 10/04/21 13:12 13:12 13:35 WBC RBC Hgb Hct MCHC RDW Plt Count Lymph % (Auto) Gilliam % (Auto) Gilliam # (Auto) Seg Neutrophils % Seg Neuts % (Manual) Lymphocytes % (Manual) Seg Neutrophils # Seg Neutrophils # Man Lymphocytes # (Manual) PT INR APTT ABG pH 7.254 L ABG pO2 ABG HCO3 28.9 H ABG Hemoglobin 9.7 L Oxyhemoglobin 93.5 L Sodium 135 L Potassium Chloride 95.6 L BUN 56 H Creatinine 2.1 H Glucose 107 H POC Glucose Magnesium 2.50 H Iron Total Creatine Kinase Troponin T 0.030 H NT-Pro-B Natriuret Pep 9268 H Albumin 3.4 L LDL Cholesterol Direct 47 L HDL Cholesterol 38 L PTH Intact 10/04/21 10/05/21 10/05/21 16:30 05:52 05:52 WBC RBC 3.15 L Hgb 9.2 L Hct 28.1 L MCHC RDW 17.2 H Plt Count Lymph % (Auto) Gilliam % (Auto) Gilliam # (Auto) Seg Neutrophils % Seg Neuts % (Manual) 97.0 H Lymphocytes % (Manual) 3.0 L Seg Neutrophils # Seg Neutrophils # Man 10.4 H Lymphocytes # (Manual) 0.3 L PT INR APTT ABG pH 7.260 L ABG pO2 97.1 H ABG HCO3 29.7 H ABG Hemoglobin 9.5 L Oxyhemoglobin 94.6 L Sodium 136 L Potassium 5.5 H Chloride BUN 64 H Creatinine 2.1 H Glucose 174 H POC Glucose Magnesium Iron Total Creatine Kinase Troponin T NT-Pro-B Natriuret Pep Albumin 3.1 L LDL Cholesterol Direct HDL Cholesterol PTH Intact 10/05/21 10/05/21 10/05/21 07:13 08:33 11:42 WBC RBC Hgb Hct MCHC RDW Plt Count Lymph % (Auto) Gilliam % (Auto) Gilliam # (Auto) Seg Neutrophils % Seg Neuts % (Manual) Lymphocytes % (Manual) Seg Neutrophils # Seg Neutrophils # Man Lymphocytes # (Manual) PT INR APTT ABG pH ABG pO2 ABG HCO3 ABG Hemoglobin Oxyhemoglobin Sodium Potassium Chloride BUN Creatinine Glucose POC Glucose 213 H 197 H Magnesium Iron 22 L Total Creatine Kinase Troponin T NT-Pro-B Natriuret Pep Albumin LDL Cholesterol Direct HDL Cholesterol PTH Intact 10/05/21 10/05/21 10/05/21 16:28 19:39 19:39 WBC RBC Hgb Hct MCHC RDW Plt Count Lymph % (Auto) Gilliam % (Auto) Gilliam # (Auto) Seg Neutrophils % Seg Neuts % (Manual) Lymphocytes % (Manual) Seg Neutrophils # Seg Neutrophils # Man Lymphocytes # (Manual) PT INR APTT ABG pH ABG pO2 ABG HCO3 ABG Hemoglobin Oxyhemoglobin Sodium Potassium Chloride BUN Creatinine Glucose POC Glucose 181 H Magnesium Iron 16 L Total Creatine Kinase 200 H Troponin T NT-Pro-B Natriuret Pep Albumin LDL Cholesterol Direct HDL Cholesterol PTH Intact 10/05/21 10/05/21 10/06/21 19:39 Unknown 05:09 WBC RBC Hgb 9.6 L Hct 30.3 L MCHC RDW Plt Count Lymph % (Auto) Gilliam % (Auto) Gilliam # (Auto) Seg Neutrophils % Seg Neuts % (Manual) Lymphocytes % (Manual) Seg Neutrophils # Seg Neutrophils # Man Lymphocytes # (Manual) PT INR APTT ABG pH ABG pO2 ABG HCO3 ABG Hemoglobin Oxyhemoglobin Sodium Potassium Chloride BUN 69 H Creatinine 2.2 H Glucose 214 H POC Glucose Magnesium Iron Total Creatine Kinase Troponin T NT-Pro-B Natriuret Pep Albumin LDL Cholesterol Direct HDL Cholesterol PTH Intact 109.2 H 10/06/21 10/06/21 10/06/21 08:51 11:26 13:43 WBC RBC Hgb Hct MCHC RDW Plt Count Lymph % (Auto) Gilliam % (Auto) Gilliam # (Auto) Seg Neutrophils % Seg Neuts % (Manual) Lymphocytes % (Manual) Seg Neutrophils # Seg Neutrophils # Man Lymphocytes # (Manual) PT INR APTT ABG pH ABG pO2 ABG HCO3 ABG Hemoglobin Oxyhemoglobin Sodium Potassium Chloride 97.9 L BUN 67 H Creatinine 2.0 H Glucose 184 H POC Glucose 307 H 229 H Magnesium Iron Total Creatine Kinase Troponin T NT-Pro-B Natriuret Pep Albumin LDL Cholesterol Direct HDL Cholesterol PTH Intact 10/06/21 10/06/21 10/06/21 16:03 16:54 16:54 WBC 15.6 H RBC 3.57 L Hgb 9.9 L Hct 31.9 L MCHC 31 L RDW 17.2 H Plt Count Lymph % (Auto) Gilliam % (Auto) Gilliam # (Auto) Seg Neutrophils % Seg Neuts % (Manual) Lymphocytes % (Manual) Seg Neutrophils # Seg Neutrophils # Man Lymphocytes # (Manual) PT 16.9 H INR 1.23 H APTT ABG pH ABG pO2 ABG HCO3 ABG Hemoglobin Oxyhemoglobin Sodium Potassium Chloride BUN Creatinine Glucose POC Glucose 295 H Magnesium Iron Total Creatine Kinase Troponin T NT-Pro-B Natriuret Pep Albumin LDL Cholesterol Direct HDL Cholesterol PTH Intact 10/06/21 16:54 WBC RBC Hgb Hct MCHC RDW Plt Count Lymph % (Auto) Gilliam % (Auto) Gilliam # (Auto) Seg Neutrophils % Seg Neuts % (Manual) Lymphocytes % (Manual) Seg Neutrophils # Seg Neutrophils # Man Lymphocytes # (Manual) PT INR APTT ABG pH ABG pO2 ABG HCO3 ABG Hemoglobin Oxyhemoglobin Sodium Potassium Chloride BUN Creatinine 2.1 H Glucose POC Glucose Magnesium Iron Total Creatine Kinase Troponin T NT-Pro-B Natriuret Pep Albumin LDL Cholesterol Direct HDL Cholesterol PTH Intact Allied health notes reviewed: nursing
[2021-10-07] MEDS: RIVAROXABAN 20 MG TAB PO SCH (17:23)
--- NOTE | 2021-10-07 20:47 | Progress Note ---
Assessment and Plan Assessment and plan: Advance Directives: Yes (Full code) VTE prophylaxis?: Chemical Plan of care discussed with patient/family: Yes --Acute respiratory failure with hypoxia and hypercapnia Patient has chronic respiratory failure and and is on home oxygen of 2 L. #1 acute respiratory failure with hypoxia and hypercarbia. His ABG significant for pH of 7.254 and bicarb and CO2 of 66.8 and PO2 of 87.6. Patient initiated oxygen titrate O2 sats to more than 90% , nebulizers , tapering dose of IV steroids , empiric IV antibiotics Inhalation steroids, home oxygen evaluation at discharge Pulmonary evaluation and recommendations noted and appreciated -- Acute exacerbation of chronic obstructive pulmonary disease (COPD) Oxygen titrate O2 sats more than 90%, home O2 evaluation at discharge Patient on IV antibiotics IV Solu-Medrol and duo nebs [id number] and Pulmicort. Wean as tolerated, physical therapy occupational therapy and rehabilitation Pulmonary following --Acute on chronic systolic CHF (congestive heart failure) Patient initiated on Lasix and Aldactone. Echocardiogram requested for ejection fraction and valve function and wall motion abnormality. Cardiology consult requested. Daily weights and intake and output. -- Morbid obesity with BMI of 40.0-44.9, adult Patient needs to see the bariatric surgeon Patient will be given referral to Dr. Evans who is a bariatric surgeon in this hospital --Possible obstructive sleep apnea; With CPAP/BiPAP at night and as needed during daytime, Wean as tolerated Patient needs outpatient sleep study to rule out obstructive sleep apnea -- hypertension; Continue antihypertensives As needed medications -- History of atrial fibrillation Rate controlled, continue AV evans blocking agents Anticoagulation with Xarelto Medications reconciled --Anemia Hb 9,2 Anemia work-up requested Anemia of chronic disease, closely monitor --Superficial blisters, ecchymosis bilateral lower extremity Consult wound care, supportive care -- DVT prophylaxis superficial blisters Patient is on Xarelto, SCDs --Advance care planning Disease education conducted, care plan discussed, diagnosis discussed, prognosis discussed. Patient is full code. Treatment plan , discharge planning discussed patient acknowledged understanding and agreement with care plan. +30 minutes. Strongly counseled the importance of adhering to treatment plan We will monitor the patient and adjust management as needed We will closely monitor patient and adjust management as needed Plan of care reviewed with the patient his nurse case management 10/06/2021; pending wound care evaluation History Interval history: I have seen and examined the patient at the bedside Patient's chart and medications reviewed Patient feels slightly better concerned about his leg wound and blisters Awaiting wound care assessment and evaluation Vital signs noted Hospitalist Physical - Constitutional Vitals: Temp Pulse Resp BP Pulse Ox 97.5 F L 99 H 20 133/85 95 10/07/21 08:06 10/07/21 19:59 10/07/21 19:59 10/07/21 16:17 10/07/21 20:00 General appearance: Present: no acute distress, well-nourished, obese (Morbidly obese), other (On BiPAP on admission now on nasal cannula oxygen) - EENT Eyes: Present: PERRL, EOM intact - Neck Neck: Present: supple, normal ROM - Respiratory Respiratory effort: normal Respiratory: bilateral: diminished, negative: rales, rhonchi, wheezing - Cardiovascular Rhythm: regular Heart Sounds: Present: S1 & S2 - Extremities Extremities: abnormal (Massive edema feet, superficial blisters, erythematous wound) - Abdominal General gastrointestinal: soft, non-tender, non-distended, normal bowel sounds - Integumentary Integumentary: Present: clear, warm - Psychiatric Psychiatric: appropriate mood/affect, cooperative - Neurologic Neurologic: CNII-XII intact, moves all extremities HEART Score - HEART Score Risk factors: > 3 risk factors or hx of atherosclerotic disease Troponin: Troponin T 0.026 ng/mL (0.00-0.029) 10/04/21 21:06 Troponin: 1-3x normal limit - Critical Actions Critical Actions: 4-6 pts:12-16.6% risk of adverse cardiac event. Should be admitted Results - Labs CBC & Chem 7: 10/06/21 16:54 10/06/21 16:54 Labs: Laboratory Last Values WBC 15.6 K/mm3 (4.5-11.0) H 10/06/21 16:54 RBC 3.57 M/mm3 (3.65-5.03) L 10/06/21 16:54 Hgb 9.9 gm/dl (11.8-15.2) L 10/06/21 16:54 Hct 31.9 % (35.5-45.6) L 10/06/21 16:54 MCV 89 fl (84-94) 10/06/21 16:54 MCH 28 pg (28-32) 10/06/21 16:54 MCHC 31 % (32-34) L 10/06/21 16:54 RDW 17.2 % (13.2-15.2) H 10/06/21 16:54 Plt Count 429 K/mm3 (140-440) 10/06/21 16:54 Lymph % (Auto) 11.2 % (13.4-35.0) L 10/04/21 13:12 [place] % (Auto) 11.6 % (0.0-7.3) H 10/04/21 13:12 Eos % (Auto) 1.2 % (0.0-4.3) 10/04/21 13:12 Baso % (Auto) 0.8 % (0.0-1.8) 10/04/21 13:12 Lymph # (Auto) 1.5 K/mm3 (1.2-5.4) 10/04/21 13:12 [place] # (Auto) 1.6 K/mm3 (0.0-0.8) H 10/04/21 13:12 Eos # (Auto) 0.2 K/mm3 (0.0-0.4) 10/04/21 13:12 Baso # (Auto) 0.1 K/mm3 (0.0-0.1) 10/04/21 13:12 Add Manual Diff Complete 10/05/21 05:52 Total Counted 100 10/05/21 05:52 Seg Neutrophils % Access Specialist 10/05/21 05:52 Seg Neuts % (Manual) 97.0 % (40.0-70.0) H 10/05/21 05:52 Band Neutrophils % 0 % 10/05/21 05:52 Lymphocytes % (Manual) 3.0 % (13.4-35.0) L 10/05/21 05:52 Reactive Lymphs % (Man) 0 % 10/05/21 05:52 Monocytes % (Manual) 0 % (0.0-7.3) 10/05/21 05:52 Eosinophils % (Manual) 0 % (0.0-4.3) 10/05/21 05:52 Basophils % (Manual) 0 % (0.0-1.8) 10/05/21 05:52 Metamyelocytes % 0 % 10/05/21 05:52 Myelocytes % 0 % 10/05/21 05:52 Promyelocytes % 0 % 10/05/21 05:52 Blast Cells % 0 % 10/05/21 05:52 Nucleated RBC % Not Reportable 10/05/21 05:52 Seg Neutrophils # 10.2 K/mm3 (1.8-7.7) H 10/04/21 13:12 Seg Neutrophils # Man 10.4 K/mm3 (1.8-7.7) H 10/05/21 05:52 Band Neutrophils # 0.0 K/mm3 10/05/21 05:52 Lymphocytes # (Manual) 0.3 K/mm3 (1.2-5.4) L 10/05/21 05:52 Abs React Lymphs (Man) 0.0 K/mm3 10/05/21 05:52 Monocytes # (Manual) 0.0 K/mm3 (0.0-0.8) 10/05/21 05:52 Eosinophils # (Manual) 0.0 K/mm3 (0.0-0.4) 10/05/21 05:52 Basophils # (Manual) 0.0 K/mm3 (0.0-0.1) 10/05/21 05:52 Metamyelocytes # 0.0 K/mm3 10/05/21 05:52 Myelocytes # 0.0 K/mm3 10/05/21 05:52 Promyelocytes # 0.0 K/mm3 10/05/21 05:52 Blast Cells # 0.0 K/mm3 10/05/21 05:52 WBC Morphology Not Reportable 10/05/21 05:52 Hypersegmented Neuts Not Reportable 10/05/21 05:52 Hyposegmented Neuts Not Reportable 10/05/21 05:52 Hypogranular Neuts Not Reportable 10/05/21 05:52 Smudge Cells Not Reportable 10/05/21 05:52 Toxic Granulation Not Reportable 10/05/21 05:52 Toxic Vacuolation Not Reportable 10/05/21 05:52 Dohle Bodies Not Reportable 10/05/21 05:52 Pelger-Huet Anomaly Not Reportable 10/05/21 05:52 Rod Rods Not Reportable 10/05/21 05:52 Platelet Estimate Consistent w auto 10/05/21 05:52 Clumped Platelets Not Reportable 10/05/21 05:52 Plt Clumps, EDTA Not Reportable 10/05/21 05:52 Large Platelets Not Reportable 10/05/21 05:52 Giant Platelets Not Reportable 10/05/21 05:52 Platelet Satelliting Not Reportable 10/05/21 05:52 Plt Morphology Comment Not Reportable 10/05/21 05:52 RBC Morphology Not Reportable 10/05/21 05:52 Dimorphic RBCs Not Reportable 10/05/21 05:52 Polychromasia Not Reportable 10/05/21 05:52 Hypochromasia Few 10/05/21 05:52 Poikilocytosis Not Reportable 10/05/21 05:52 Anisocytosis Few 10/05/21 05:52 Microcytosis Not Reportable 10/05/21 05:52 Macrocytosis Not Reportable 10/05/21 05:52 Spherocytes Not Reportable 10/05/21 05:52 Pappenheimer Bodies Not Reportable 10/05/21 05:52 Sickle Cells Not Reportable 10/05/21 05:52 Target Cells Not Reportable 10/05/21 05:52 Tear Drop Cells Not Reportable 10/05/21 05:52 Ovalocytes Not Reportable 10/05/21 05:52 Helmet Cells Not Reportable 10/05/21 05:52 Clark-Stacy Bodies Not Reportable 10/05/21 05:52 [place] Rings Not Reportable 10/05/21 05:52 Yajaira Cells Not Reportable 10/05/21 05:52 Bite Cells Not Reportable 10/05/21 05:52 Crenated Cell Not Reportable 10/05/21 05:52 Elliptocytes Not Reportable 10/05/21 05:52 Acanthocytes (Spur) Not Reportable 10/05/21 05:52 Rouleaux Not Reportable 10/05/21 05:52 Hemoglobin C Crystals Not Reportable 10/05/21 05:52 Schistocytes Not Reportable 10/05/21 05:52 Malaria parasites Not Reportable 10/05/21 05:52 Michael Bodies Not Reportable 10/05/21 05:52 Hem Pathologist Commnt No 10/05/21 05:52 PT 16.9 Sec. (12.2-14.9) H 10/06/21 16:54 INR 1.23 (0.87-1.13) H 10/06/21 16:54 APTT 28.6 Sec. (24.2-36.6) 10/06/21 16:54 ABG pH 7.260 pH Units (7.350-7.450) L 10/04/21 16:30 ABG pCO2 67.7 mm Hg 10/04/21 16:30 ABG pO2 97.1 mm Hg (80.0-90.0) H 10/04/21 16:30 ABG HCO3 29.7 mmol/L (20.0-26.0) H 10/04/21 16:30 ABG O2 Saturation 96.8 % (95.0-99.0) 10/04/21 16:30 ABG O2 Content 12.9 (0.0-44) 10/04/21 16:30 ABG Base Excess 1.6 mmol/L (-2.0-3.0) 10/04/21 16:30 ABG Hemoglobin 9.5 gm/dl (14.0-18.0) L 10/04/21 16:30 ABG Carboxyhemoglobin 1.9 % (0.0-5.0) 10/04/21 16:30 ABG Methemoglobin 0.4 % (0.0-1.5) 10/04/21 16:30 Oxyhemoglobin 94.6 % (95.0-99.0) L 10/04/21 16:30 FiO2 35 % 10/04/21 16:30 Sodium 139 mmol/L (137-145) 10/06/21 13:43 Potassium 4.1 mmol/L (3.6-5.0) 10/06/21 13:43 Chloride 97.9 mmol/L (98-107) L 10/06/21 13:43 Carbon Dioxide 29 mmol/L (22-30) 10/06/21 13:43 Anion Gap 16 mmol/L 10/06/21 13:43 BUN 67 mg/dL (9-20) H 10/06/21 13:43 Creatinine 2.1 mg/dL (0.8-1.3) H 10/06/21 16:54 Estimated GFR 32 ml/min 10/06/21 16:54 BUN/Creatinine Ratio 34 % 10/06/21 13:43 Glucose 184 mg/dL (75-100) H 10/06/21 13:43 POC Glucose 295 mg/dL (70-105) H 10/06/21 16:03 Calcium 9.2 mg/dL (8.4-10.2) 10/06/21 13:43 Magnesium 2.50 mg/dL (1.7-2.3) H 10/04/21 13:12 Iron 16 ug/dL (49-181) L 10/05/21 19:39 TIBC 389 mcg/dL (250-450) 10/05/21 19:39 % Saturation 5.90 % 10/05/21 07:13 Transferrin 317 mg/dl (180-329) 10/05/21 07:13 Total Bilirubin 0.50 mg/dL (0.1-1.2) 10/05/21 05:52 AST 35 units/L (5-40) 10/05/21 05:52 ALT 24 units/L (7-56) 10/05/21 05:52 Alkaline Phosphatase 118 units/L (35-129) 10/05/21 05:52 Total Creatine Kinase 200 units/L (55-170) H 10/05/21 19:39 Troponin T 0.026 ng/mL (0.00-0.029) 10/04/21 21:06 NT-Pro-B Natriuret Pep 9268 pg/mL (0-900) H 10/04/21 13:12 Total Protein 7.3 g/dL (6.3-8.2) 10/05/21 05:52 Albumin 3.1 g/dL (3.9-5) L 10/05/21 05:52 Albumin/Globulin Ratio 0.7 % 10/05/21 05:52 Triglycerides 97 mg/dL (2-149) 10/04/21 13:12 Cholesterol 100 mg/dL (50-199) 10/04/21 13:12 LDL Cholesterol Direct 47 mg/dL (50-130) L 10/04/21 13:12 HDL Cholesterol 38 mg/dL (40-59) L 10/04/21 13:12 Cholesterol/HDL Ratio 2.63 % 10/04/21 13:12 Vitamin B12 900.5 pg/mL (211-911) 10/05/21 07:13 PTH Intact 109.2 pg/mL (15-65) H 10/05/21 Unknown Microbiology: Microbiology 10/04/21 15:49 Peripheral/Venous Blood Culture - Preliminary NO GROWTH AFTER 72 HOURS 10/04/21 16:39 Peripheral/Venous Blood Culture - Preliminary NO GROWTH AFTER 72 HOURS Joaquin/IV: Voiding Method Urinal Active Medications - Current Medications Current Medications: Generic Name Dose Route Start Last Admin Trade Name Freq PRN Reason Stop Dose Admin Acetaminophen 650 mg 10/04/21 20:23 Acetaminophen 325 Mg Tab PO Q4H PRN Pain MILD(1-3)/Fever >100.5/CURTIS Albuterol 2.5 mg 10/04/21 20:32 Albuterol 2.5 Mg/3 Ml Nebu IH Q4HRT PRN Shortness Of Breath Albuterol/Ipratropium 1 ampul 10/05/21 14:00 10/07/21 19:56 Ipratropium/Albuterol Sulfate 3 Ml Ampul.Neb IH 1 ampul Q6HRT MOOKIE Administration Aspirin 81 mg 10/04/21 21:00 10/07/21 09:31 Aspirin 81 Mg Tab Chew PO 81 mg QDAY MOOKIE Administration Atorvastatin Calcium 40 mg 10/04/21 22:00 10/06/21 22:28 Atorvastatin 40 Mg Tab PO 40 mg QHS MOOKIE Administration Azithromycin 500 mg 10/05/21 22:00 10/06/21 22:35 Azithromycin 250 Mg Tab PO 10/08/21 22:01 500 mg Q24H MOOKIE Administration Protocol Budesonide 0.5 mg 10/05/21 20:00 10/07/21 19:56 Budesonide 0.5 Mg/2 Ml Nebu IH 0.5 mg Q12HRT MOOKIE Administration Furosemide 40 mg 10/06/21 13:00 10/07/21 20:10 Furosemide 40 Mg/4 Ml Inj IV 40 mg Q6H MOOKIE Administration Gabapentin 300 mg 10/04/21 22:00 10/07/21 09:31 Gabapentin 300 Mg Cap PO 300 mg BID MOOKIE Administration Hydromorphone HCl 0.5 mg 10/04/21 20:24 Hydromorphone 0.5 Mg/0.5 Ml Inj IV Q3H PRN Pain , Severe (7-10) Ceftriaxone Sodium 2 gm in 100 mls @ 200 mls/hr 10/04/21 22:00 10/06/21 22:32 Rocephin/Ns 2 Gm/100 Ml IV 10/08/21 22:29 200 mls/hr Q24H MOOKIE Administration Protocol Ferric Sodium Gluconate 110 mls @ 100 mls/hr 10/06/21 13:00 10/07/21 09:37 Complex 125 mg/ Sodium IV 10/13/21 11:05 100 mls/hr Chloride DAILY MOOKIE Administration Methylprednisolone Sodium Succinate 80 mg 10/04/21 22:00 10/07/21 15:00 Methylprednisolone Sod Succinate 125 Mg/2 Ml Inj IV 80 mg Q8H MOOKIE Administration Metoclopramide HCl 10 mg 10/04/21 20:24 Metoclopramide 10 Mg/2 Ml Inj IV Q6H PRN Nausea And Vomiting Metoprolol Succinate 200 mg 10/04/21 22:00 10/07/21 09:31 Metoprolol Succinate Xl 100 Mg Tab PO 200 mg QDAY MOOKIE Administration Morphine Sulfate 2 mg 10/04/21 20:24 10/07/21 06:48 Morphine 2 Mg/1 Ml Inj IV 2 mg Q4H PRN Administration Pain, Moderate (4-6) Ondansetron HCl 4 mg 10/04/21 20:23 Ondansetron 4 Mg/2 Ml Inj IV Q3H PRN Nausea And Vomiting Oxycodone/Acetaminophen 1 tab 10/04/21 20:24 10/06/21 22:41 Oxycodone /Acetaminophen 5-325mg Tab PO 1 tab Q6H PRN Administration Pain, Moderate (4-6) Rivaroxaban 20 mg 10/06/21 17:00 10/07/21 17:23 Rivaroxaban 20 Mg Tab PO 20 mg QPMDIAB MOOKIE Administration Protocol Sodium Chloride 10 ml 10/04/21 22:00 10/07/21 10:22 Sodium Chloride 0.9% 10 Ml Flush Syringe IV 10 ml BID MOOKIE Administration Sodium Chloride 10 ml 10/04/21 20:23 Sodium Chloride 0.9% 10 Ml Flush Syringe IV PRN PRN LINE FLUSH
[2021-10-07] MEDS: cefTRIAXone/NS 2 GM/100 ML 2 GM/100 ML BAG IV SCH (22:29)
[2021-10-07] MEDS: AZITHROMYCIN 250 MG TAB PO SCH (22:30)
[2021-10-08] MEDS: FUROSEMIDE 40 MG/4 ML INJ IV SCH ×4 (01:17→18:27)
[2021-10-08] MEDS: IPRATROPIUM/ALBUTEROL SULFATE 3 ML AMPUL.NEB IH SCH ×4 (02:39→20:39)
[2021-10-08] MEDS: methylPREDNISolone Sod Succinate 125 MG/2 ML INJ IV SCH (05:44)
[2021-10-08 06:12] LABS: Hematocrit 30.3 % (35.5-45.6); Hemoglobin 9.6 gm/dl (11.8-15.2); Mean Corpuscular HGB Conc 32 % (32-34); Mean Corpuscular Volume 88 fl (84-94); Platelet Count 388 K/mm3 (140-440); Red Blood Count 3.43 M/mm3 (3.65-5.03); Red Cell Distribution Width 17.3 % (13.2-15.2)
[2021-10-08 06:29] LABS: Calcium 8.9 mg/dL (8.4-10.2)
[2021-10-08 06:57] LABS: Total Cells Counted 100
[2021-10-08 06:58] LABS: Anisocytosis 1+; Basophils % (Manual) 0 % (0.0-1.8); Eosinophils % (Manual) 0 % (0.0-4.3); Macrocytosis Few; Platelet Estimate Consistent w Auto
--- NOTE | 2021-10-08 08:52 | Progress Note ---
Assessment and Plan cute Kidney injury, Unknown CKD Hyperkalemia Acute hypoxic respiratory failure Acute CHF Hypertension Obesity Anemia Afib Plan: -Cr is better, BUN is rising likely due to diuretics and systemic steroids -No baseline serum creatinine available so unknown if has CKD or not -Renal US was negative for hydronephrosis -Held Aldactone for now due to renal failure/hyperkalemia -cont diuretics -Low Iron of 16- on Ferric Gluconate 125 mcg@ 100 ml/he x 8 doses -PTH 109.2, suggestive of CKD -Renally dose all medications -Avoid Nephrotoxic agents -Continue to monitor renal function closely Subjective Date of service: 10/08/21 Principal diagnosis: COPD, acute on chronic HFmrEF Interval history: cont to have swelling in legs Objective - Vital Signs Vital signs: Vital Signs - 12hr 10/07/21 10/08/21 10/08/21 21:09 00:23 01:45 Temperature Pulse Rate 98 H Pulse Rate [ Bilateral Throughout] Respiratory 20 26 H Rate Respiratory Rate [Bilateral Throughout] Blood Pressure 142/85 Blood Pressure [Left] O2 Sat by Pulse 97 95 Oximetry 10/08/21 10/08/21 10/08/21 02:40 04:10 07:31 Temperature 97.4 F L 97.3 F L Pulse Rate 105 H 99 H Pulse Rate [ 106 H Bilateral Throughout] Respiratory 22 20 Rate Respiratory 20 Rate [Bilateral Throughout] Blood Pressure 141/85 Blood Pressure 142/85 [Left] O2 Sat by Pulse 96 96 Oximetry - Lab 10/08/21 05:39 10/08/21 05:39 Most recent lab results ABG pH 7.260 pH Units (7.350-7.450) L 10/04/21 16:30 ABG pCO2 67.7 mm Hg 10/04/21 16:30 ABG pO2 97.1 mm Hg (80.0-90.0) H 10/04/21 16:30 ABG HCO3 29.7 mmol/L (20.0-26.0) H 10/04/21 16:30 ABG O2 Saturation 96.8 % (95.0-99.0) 10/04/21 16:30 Calcium 8.9 mg/dL (8.4-10.2) 10/08/21 05:39 Magnesium 2.20 mg/dL (1.7-2.3) 10/08/21 05:39 Medications & Allergies - Medications Allergies/Adverse Reactions: Allergies No Known Allergies Allergy (Unverified 10/04/21 12:35) Home Medications: Home Medications Medication Instructions Recorded Confirmed Last Taken Type Albuterol Sulfate [Proair 90 mcg PO PRN 10/04/21 10/04/21 Unknown History Respiclick] Aspirin [Aspirin BABY CHEW TAB] 81 mg PO QDAY 10/04/21 10/04/21 Unknown History AtorvaSTATin [Lipitor] 40 mg PO QHS 10/04/21 10/04/21 Unknown History Gabapentin 300 mg PO TID 10/04/21 10/08/21 Unknown History Losartan [Cozaar] 25 mg PO QDAY 10/04/21 10/04/21 Unknown History Rivaroxaban [Xarelto] 20 mg PO DAILY 10/04/21 10/04/21 Unknown History Budesonide/Formoterol Fumarate 2 puff INHALATION BID 10/08/21 10/08/21 Unknown History [Symbicort 80-4.5 Mcg Inhaler] Metoprolol Xl [Metoprolol 300 mg PO QDAY 10/08/21 10/08/21 Unknown History SUCCINATE ER TAB] Omeprazole 20 mg PO QDAY 10/08/21 10/08/21 Unknown History Oxycodone HCl/Acetaminophen 1 each PO Q8H PRN 10/08/21 10/08/21 Unknown History [Percocet 10/325 mg] Torsemide [Demadex] 100 mg PO QDAY 10/08/21 10/08/21 Unknown History traZODone [Desyrel] 50 mg PO QHS 10/08/21 10/08/21 Unknown History Active Medications: Generic Name Dose Route Start Last Admin Trade Name Freq PRN Reason Stop Dose Admin Acetaminophen 650 mg 10/04/21 20:23 Acetaminophen 325 Mg Tab PO Q4H PRN Pain MILD(1-3)/Fever >100.5/CURTIS Albuterol 2.5 mg 10/04/21 20:32 Albuterol 2.5 Mg/3 Ml Nebu IH Q4HRT PRN Shortness Of Breath Albuterol/Ipratropium 1 ampul 10/05/21 14:00 10/08/21 02:39 Ipratropium/Albuterol Sulfate 3 Ml Ampul.Neb IH 1 ampul Q6HRT MOOKIE Administration Aspirin 81 mg 10/04/21 21:00 10/07/21 09:31 Aspirin 81 Mg Tab Chew PO 81 mg QDAY MOOKIE Administration Atorvastatin Calcium 40 mg 10/04/21 22:00 10/07/21 22:28 Atorvastatin 40 Mg Tab PO 40 mg QHS MOOKIE Administration Azithromycin 500 mg 10/05/21 22:00 10/07/21 22:30 Azithromycin 250 Mg Tab PO 10/08/21 22:01 500 mg Q24H MOOKIE Administration Protocol Budesonide 0.5 mg 10/05/21 20:00 10/07/21 19:56 Budesonide 0.5 Mg/2 Ml Nebu IH 0.5 mg Q12HRT MOOKIE Administration Furosemide 40 mg 10/06/21 13:00 10/08/21 06:59 Furosemide 40 Mg/4 Ml Inj IV 40 mg Q6H MOOKIE Administration Gabapentin 300 mg 10/04/21 22:00 10/07/21 22:28 Gabapentin 300 Mg Cap PO 300 mg BID MOOKIE Administration Hydromorphone HCl 0.5 mg 10/04/21 20:24 Hydromorphone 0.5 Mg/0.5 Ml Inj IV Q3H PRN Pain , Severe (7-10) Ceftriaxone Sodium 2 gm in 100 mls @ 200 mls/hr 10/04/21 22:00 10/07/21 22:29 Rocephin/Ns 2 Gm/100 Ml IV 10/08/21 22:29 200 mls/hr Q24H MOOKIE Administration Protocol Ferric Sodium Gluconate 110 mls @ 100 mls/hr 10/06/21 13:00 10/07/21 09:37 Complex 125 mg/ Sodium IV 10/13/21 11:05 100 mls/hr Chloride DAILY MOOKIE Administration Methylprednisolone Sodium Succinate 80 mg 10/04/21 22:00 10/08/21 05:44 Methylprednisolone Sod Succinate 125 Mg/2 Ml Inj IV 80 mg Q8H MOOKIE Administration Metoclopramide HCl 10 mg 10/04/21 20:24 Metoclopramide 10 Mg/2 Ml Inj IV Q6H PRN Nausea And Vomiting Metoprolol Succinate 200 mg 10/04/21 22:00 10/07/21 09:31 Metoprolol Succinate Xl 100 Mg Tab PO 200 mg QDAY MOOKIE Administration Morphine Sulfate 2 mg 10/04/21 20:24 10/07/21 06:48 Morphine 2 Mg/1 Ml Inj IV 2 mg Q4H PRN Administration Pain, Moderate (4-6) Ondansetron HCl 4 mg 10/04/21 20:23 Ondansetron 4 Mg/2 Ml Inj IV Q3H PRN Nausea And Vomiting Oxycodone/Acetaminophen 1 tab 10/04/21 20:24 10/06/21 22:41 Oxycodone /Acetaminophen 5-325mg Tab PO 1 tab Q6H PRN Administration Pain, Moderate (4-6) Rivaroxaban 20 mg 10/06/21 17:00 10/07/21 17:23 Rivaroxaban 20 Mg Tab PO 20 mg QPMDIAB MOOKIE Administration Protocol Sodium Chloride 10 ml 10/04/21 22:00 10/07/21 22:29 Sodium Chloride 0.9% 10 Ml Flush Syringe IV 10 ml BID MOOKIE Administration Sodium Chloride 10 ml 10/04/21 20:23 Sodium Chloride 0.9% 10 Ml Flush Syringe IV PRN PRN LINE FLUSH
[2021-10-08] MEDS: BUDESONIDE 0.5 MG/2 ML NEBU IH SCH ×2 (10:04→20:39)
[2021-10-08] MEDS: METOPROLOL SUCCINATE XL 100 MG TAB PO SCH (10:28)
[2021-10-08] MEDS: GABAPENTIN 300 MG CAP PO SCH ×2 (10:28→22:12)
[2021-10-08] MEDS: ASPIRIN 81 MG TAB CHEW PO SCH (10:28)
[2021-10-08] MEDS: oxyCODONE /ACETAMINOPHEN 5-325MG TAB PO PRN ×2 (10:35→22:23)
[2021-10-08] MEDS: SODIUM FERRIC GLUCON/SUCRO 125 MG in SODIUM CHLORIDE 0.9% 100 ML IV SCH (10:59)
--- NOTE | 2021-10-08 11:06 | Progress Note ---
Assessment and Plan 60 y/o obese male with acute respiratory failure. 10/08/21: Dropped the steroids to 40q12 today. Please wean as follows: [address] on Prednisone 60mg daily for 4 days, 40 daily for 4 days, 20 daily for 4 days then 10 daily for 4 days then stop. He should follow up with his pulm group at [facility] at discharge. Would discuss with if patient has oxygen at home, if not needs ambulatory pulse ox. Will see as needed. 10/07/21: Suggest dropping steroids to 40q12. Continue NIV at night. Patient has never been to our office and has never seen Dr. Valdes. Suggest getting [facility] records as he is likely confusing us with a pulm doc from there. Pulm us he appears to be stable. 10/06/21: WIll review office records tomorrow. Suggest dropping steroids down to 40q12. Follow up echo results. Continue NIV at night. Continue supplemental O2. 1. Suggest obtaining all records from [facility] 2. I cannot access my office records remotely but will review chart on Thursday 3. Would suggest fluid restriction and diuresis if renal oK 4. Will start to wean down steroids 5. Bipap QHS and PRN during the day 6. Will add BID pulmicort and continue scheduled duonebs 7. Patient would not answer if he is on oxygen therapy at home or not. Would suggest ambulatory walk test prior to discharge. Subjective Date of service: 10/08/21 Principal diagnosis: COPD, acute on chronic HFmrEF Interval history: No acute events. Patient states that he sees an Female on the third or fourth floor of [facility] for his SUNIL and COPD. at bedside. Objective Vital Signs - 12hr 10/08/21 10/08/21 10/08/21 00:23 01:45 02:40 Temperature Pulse Rate 98 H Pulse Rate [ 106 H Bilateral Throughout] Respiratory 26 H Rate Respiratory 20 Rate [Bilateral Throughout] Blood Pressure Blood Pressure [Left] O2 Sat by Pulse 97 95 Oximetry 10/08/21 10/08/21 10/08/21 04:10 07:31 08:00 Temperature 97.4 F L 97.3 F L Pulse Rate 105 H 99 H Pulse Rate [ Bilateral Throughout] Respiratory 22 20 Rate Respiratory Rate [Bilateral Throughout] Blood Pressure 141/85 Blood Pressure 142/85 [Left] O2 Sat by Pulse 96 96 94 Oximetry 10/08/21 09:56 Temperature Pulse Rate Pulse Rate [ 12 L Bilateral Throughout] Respiratory Rate Respiratory 17 Rate [Bilateral Throughout] Blood Pressure Blood Pressure [Left] O2 Sat by Pulse Oximetry Constitutional: no acute distress, alert, appears uncomfortable Eyes: non-icteric ENT: oropharynx moist Neck: other (large in circumference) Ascultation: Bilateral: rales CBC and BMP: 10/08/21 05:39 10/08/21 05:39 ABG, PT/INR, D-dimer: ABG ABG pH 7.260 pH Units (7.350-7.450) L 10/04/21 16:30 ABG pCO2 67.7 mm Hg 10/04/21 16:30 ABG pO2 97.1 mm Hg (80.0-90.0) H 10/04/21 16:30 ABG O2 Saturation 96.8 % (95.0-99.0) 10/04/21 16:30 PT/INR, D-dimer PT 16.9 Sec. (12.2-14.9) H 10/06/21 16:54 INR 1.23 (0.87-1.13) H 10/06/21 16:54 Abnormal lab findings: Abnormal Labs 10/04/21 10/04/21 10/04/21 12:37 13:12 13:12 WBC 13.6 H RBC 3.38 L Hgb 9.7 L Hct 30.3 L MCHC RDW 17.4 H Plt Count 456 H Lymph % (Auto) 11.2 L Duval % (Auto) 11.6 H Duval # (Auto) 1.6 H Seg Neutrophils % 75.2 H Seg Neuts % (Manual) Lymphocytes % (Manual) Seg Neutrophils # 10.2 H Seg Neutrophils # Man Lymphocytes # (Manual) PT 40.7 H INR 3.58 H APTT 43.9 H ABG pH ABG pO2 ABG HCO3 ABG Hemoglobin Oxyhemoglobin Sodium Potassium Chloride BUN Creatinine Glucose POC Glucose 112 H Magnesium Iron Total Creatine Kinase Troponin T NT-Pro-B Natriuret Pep Albumin LDL Cholesterol Direct HDL Cholesterol PTH Intact 10/04/21 10/04/21 10/04/21 13:12 13:12 13:35 WBC RBC Hgb Hct MCHC RDW Plt Count Lymph % (Auto) Duval % (Auto) Duval # (Auto) Seg Neutrophils % Seg Neuts % (Manual) Lymphocytes % (Manual) Seg Neutrophils # Seg Neutrophils # Man Lymphocytes # (Manual) PT INR APTT ABG pH 7.254 L ABG pO2 ABG HCO3 28.9 H ABG Hemoglobin 9.7 L Oxyhemoglobin 93.5 L Sodium 135 L Potassium Chloride 95.6 L BUN 56 H Creatinine 2.1 H Glucose 107 H POC Glucose Magnesium 2.50 H Iron Total Creatine Kinase Troponin T 0.030 H NT-Pro-B Natriuret Pep 9268 H Albumin 3.4 L LDL Cholesterol Direct 47 L HDL Cholesterol 38 L PTH Intact 10/04/21 10/05/21 10/05/21 16:30 05:52 05:52 WBC RBC 3.15 L Hgb 9.2 L Hct 28.1 L MCHC RDW 17.2 H Plt Count Lymph % (Auto) Duval % (Auto) Duval # (Auto) Seg Neutrophils % Seg Neuts % (Manual) 97.0 H Lymphocytes % (Manual) 3.0 L Seg Neutrophils # Seg Neutrophils # Man 10.4 H Lymphocytes # (Manual) 0.3 L PT INR APTT ABG pH 7.260 L ABG pO2 97.1 H ABG HCO3 29.7 H ABG Hemoglobin 9.5 L Oxyhemoglobin 94.6 L Sodium 136 L Potassium 5.5 H Chloride BUN 64 H Creatinine 2.1 H Glucose 174 H POC Glucose Magnesium Iron Total Creatine Kinase Troponin T NT-Pro-B Natriuret Pep Albumin 3.1 L LDL Cholesterol Direct HDL Cholesterol PTH Intact 10/05/21 10/05/21 10/05/21 07:13 08:33 11:42 WBC RBC Hgb Hct MCHC RDW Plt Count Lymph % (Auto) Du[place] % (Auto) [place] # (Auto) Seg Neutrophils % Seg Neuts % (Manual) Lymphocytes % (Manual) Seg Neutrophils # Seg Neutrophils # Man Lymphocytes # (Manual) PT INR APTT ABG pH ABG pO2 ABG HCO3 ABG Hemoglobin Oxyhemoglobin Sodium Potassium Chloride BUN Creatinine Glucose POC Glucose 213 H 197 H Magnesium Iron 22 L Total Creatine Kinase Troponin T NT-Pro-B Natriuret Pep Albumin LDL Cholesterol Direct HDL Cholesterol PTH Intact 10/05/21 10/05/21 10/05/21 16:28 19:39 19:39 WBC RBC Hgb Hct MCHC RDW Plt Count Lymph % (Auto) [place] % (Auto) [place] # (Auto) Seg Neutrophils % Seg Neuts % (Manual) Lymphocytes % (Manual) Seg Neutrophils # Seg Neutrophils # Man Lymphocytes # (Manual) PT INR APTT ABG pH ABG pO2 ABG HCO3 ABG Hemoglobin Oxyhemoglobin Sodium Potassium Chloride BUN Creatinine Glucose POC Glucose 181 H Magnesium Iron 16 L Total Creatine Kinase 200 H Troponin T NT-Pro-B Natriuret Pep Albumin LDL Cholesterol Direct HDL Cholesterol PTH Intact 10/05/21 10/05/21 10/06/21 19:39 Unknown 05:09 WBC RBC Hgb 9.6 L Hct 30.3 L MCHC RDW Plt Count Lymph % (Auto) [place] % (Auto) [place] # (Auto) Seg Neutrophils % Seg Neuts % (Manual) Lymphocytes % (Manual) Seg Neutrophils # Seg Neutrophils # Man Lymphocytes # (Manual) PT INR APTT ABG pH ABG pO2 ABG HCO3 ABG Hemoglobin Oxyhemoglobin Sodium Potassium Chloride BUN 69 H Creatinine 2.2 H Glucose 214 H POC Glucose Magnesium Iron Total Creatine Kinase Troponin T NT-Pro-B Natriuret Pep Albumin LDL Cholesterol Direct HDL Cholesterol PTH Intact 109.2 H 10/06/21 10/06/21 10/06/21 08:51 11:26 13:43 WBC RBC Hgb Hct MCHC RDW Plt Count Lymph % (Auto) [place] % (Auto) [place] # (Auto) Seg Neutrophils % Seg Neuts % (Manual) Lymphocytes % (Manual) Seg Neutrophils # Seg Neutrophils # Man Lymphocytes # (Manual) PT INR APTT ABG pH ABG pO2 ABG HCO3 ABG Hemoglobin Oxyhemoglobin Sodium Potassium Chloride 97.9 L BUN 67 H Creatinine 2.0 H Glucose 184 H POC Glucose 307 H 229 H Magnesium Iron Total Creatine Kinase Troponin T NT-Pro-B Natriuret Pep Albumin LDL Cholesterol Direct HDL Cholesterol PTH Intact 10/06/21 10/06/21 10/06/21 16:03 16:54 16:54 WBC 15.6 H RBC 3.57 L Hgb 9.9 L Hct 31.9 L MCHC 31 L RDW 17.2 H Plt Count Lymph % (Auto) [place] % (Auto) [place] # (Auto) Seg Neutrophils % Seg Neuts % (Manual) Lymphocytes % (Manual) Seg Neutrophils # Seg Neutrophils # Man Lymphocytes # (Manual) PT 16.9 H INR 1.23 H APTT ABG pH ABG pO2 ABG HCO3 ABG Hemoglobin Oxyhemoglobin Sodium Potassium Chloride BUN Creatinine Glucose POC Glucose 295 H Magnesium Iron Total Creatine Kinase Troponin T NT-Pro-B Natriuret Pep Albumin LDL Cholesterol Direct HDL Cholesterol PTH Intact 10/06/21 10/08/21 10/08/21 16:54 05:39 05:39 WBC 11.9 H RBC 3.43 L Hgb 9.6 L Hct 30.3 L MCHC RDW 17.3 H Plt Count Lymph % (Auto) Duval % (Auto) [place] # (Auto) Seg Neutrophils % Seg Neuts % (Manual) 92.0 H Lymphocytes % (Manual) 7.0 L Seg Neutrophils # Seg Neutrophils # Man 10.9 H Lymphocytes # (Manual) 0.8 L PT INR APTT ABG pH ABG pO2 ABG HCO3 ABG Hemoglobin Oxyhemoglobin Sodium Potassium Chloride 97.1 L BUN 74 H Creatinine 2.1 H 1.5 H Glucose 146 H POC Glucose Magnesium Iron Total Creatine Kinase Troponin T NT-Pro-B Natriuret Pep Albumin LDL Cholesterol Direct HDL Cholesterol PTH Intact Allied health notes reviewed: nursing
--- NOTE | 2021-10-08 11:11 | Progress Note ---
Assessment and Plan Pt is a 60-year-old male with a hx of COPD (on 3L home O2), CHF, morbid obesity/SUNIL, tobacco abuse, and EtOH abuse who presented in respiratory distress requiring BiPAP. Of note, pt has a hx of COVID-19 PNA as well in May 2020 requiring a prolonged ICU stay and trach in the setting of ongoing hypoxic respiratory failure. Pt is previously unknown to our practice. Acute on Chronic Respiratory Failure (on 3L home O2 per pt report) COPD ?Exacerbation Acute on Chronic HFpEF Cardiomyopathy (EF 45-50% in 2020, no ischemic workup on file, pt denies hx of NE/CAD/stents) REECE / ?CKD Anemia Permanent AF (s/p SERGIO in 2017, on Xarelto) HTN DM2 Morbid Obesity SUNIL H/o COVID-19 PNA (05/2020-06/2020, requiring a prolonged ICU admission & tracheostomy) Tobacco Abuse EtOH Abuse (drinks 1/5 pint liquor per day) Sacral Ulcer Medical Non-Compliance Echocardiogram 10/04/2021: Left ventricule is normal size. Overall LV systolic function appears normal. Mild concentric left ventricular hypertrophy. Cannot assess regional wall motion abnormalities. Unable to assess. LVEF is 55 to 60%. Technically limited study due to body habitus Plan: Anticoagulated on Xarelto Patient currently on IV Lasix 40mg q6h per Nephro. Will defer volume management to nephrology due to renal function Continue IV diuresis with strict I/Os and close monitoring of renal indices & electrolytes Continue BB, statin, bAsa; Aldactone & Losartan held in light of renal fxn. Wound care has been consulted for LLE wound Records requested from [facility]. Still awaiting records Pt seen in conjunction with Dr. Go who agrees with the assessment and plan of care. - Patient Problems (1) Acute exacerbation of chronic obstructive pulmonary disease (COPD) Current Visit: Yes Status: Acute (2) Acute respiratory failure with hypoxia and hypercapnia Current Visit: Yes Status: Acute (3) Bilateral lower leg cellulitis Current Visit: Yes Status: Acute (4) Chronic atrial fibrillation Current Visit: Yes Status: Acute (5) Pulmonary edema Current Visit: Yes Status: Acute (6) Renal insufficiency Current Visit: Yes Status: Acute (7) Morbid obesity with BMI of 40.0-44.9, adult Current Visit: Yes Status: Chronic Subjective Date of service: 10/08/21 Principal diagnosis: COPD, acute on chronic HFmrEF Interval history: Patient sitting in bed in no acute distress. Patient continues to report improvement A. fib rate currently 110s however previously trending 90s to low 100s Objective Vital Signs Temp Pulse Pulse Resp Resp BP BP 10/08/21 09:56 12 L 17 10/08/21 08:00 10/08/21 07:31 97.3 F L 99 H 20 141/85 10/08/21 04:10 97.4 F L 105 H 22 142/85 10/08/21 02:40 106 H 20 10/08/21 01:45 10/08/21 00:23 98 H 26 H 10/07/21 21:09 20 142/85 10/07/21 20:00 10/07/21 19:59 101 H 20 10/07/21 16:17 103 H 20 133/85 10/07/21 14:13 112 H 20 10/07/21 11:26 107 H 20 121/98 Pulse Ox 10/08/21 09:56 10/08/21 08:00 94 10/08/21 07:31 96 10/08/21 04:10 96 10/08/21 02:40 10/08/21 01:45 95 10/08/21 00:23 97 10/07/21 21:09 10/07/21 20:00 94 10/07/21 19:59 10/07/21 16:17 92 10/07/21 14:13 10/07/21 11:26 94 - Physical Examination General: No Apparent Distress HEENT: Positive: EOMI, Normocephaly Neck: Positive: neck supple Neuro: Positive: Grossly Intact Abdomen: Positive: Soft Skin: Positive: Wound (sacral, left knee, left lateral calf ), Moist Extremities: Present: +4 Edema, Ulceration Noted (BLE blistering), warm, Other (venous stasis changes) - Labs and Meds CBC 10/08/21 Range/Units 05:39 WBC 11.9 H (4.5-11.0) K/mm3 RBC 3.43 L (3.65-5.03) M/mm3 Hgb 9.6 L (11.8-15.2) gm/dl Hct 30.3 L (35.5-45.6) % Plt Count 388 (140-440) K/mm3 Comprehensive Metabolic Panel 10/08/21 Range/Units 05:39 Sodium 139 (137-145) mmol/L Potassium 4.0 (3.6-5.0) mmol/L Chloride 97.1 L (98-107) mmol/L Carbon Dioxide 29 (22-30) mmol/L BUN 74 H (9-20) mg/dL Creatinine 1.5 H (0.8-1.3) mg/dL Glucose 146 H (75-100) mg/dL Calcium 8.9 (8.4-10.2) mg/dL - Imaging and Cardiology EKG: report reviewed, image reviewed Echo: report reviewed (06/09/2020: EF 45-50%, mildly dilated LA, mild AI, trace MR) - Allied health notes Allied health notes reviewed: nursing
--- NOTE | 2021-10-08 14:39 | Progress Note ---
Assessment and Plan Assessment and plan: Advance Directives: Yes (Full code) VTE prophylaxis?: Chemical Plan of care discussed with patient/family: Yes --Acute respiratory failure with hypoxia and hypercapnia Patient has chronic respiratory failure and and is on home oxygen of 2 L. #1 acute respiratory failure with hypoxia and hypercarbia. His ABG significant for pH of 7.254 and bicarb and CO2 of 66.8 and PO2 of 87.6. Patient initiated oxygen titrate O2 sats to more than 90% , nebulizers , tapering dose of IV steroids , empiric IV antibiotics Inhalation steroids, home oxygen evaluation at discharge Pulmonary evaluation and recommendations noted and appreciated -- Acute exacerbation of chronic obstructive pulmonary disease (COPD) Oxygen titrate O2 sats more than 90%, home O2 evaluation at discharge Patient on IV antibiotics IV Solu-Medrol and duo nebs [id number] and Pulmicort. Wean as tolerated, physical therapy occupational therapy and rehabilitation Pulmonary following --Acute on chronic diastolic CHF (congestive heart failure) Patient initiated on Lasix and Aldactone. Echocardiogram LVEF 55 to 60% Cardiology following Daily weights and intake and output. -- Bilateral lower extremity cellulitis: Left greater than right With superficial blisters, erythema and left great toe infection Check lower extremity venous Doppler Also get CT left lower extremity Follow reports, consult ID/vascular/Ortho if needed pending reports. Continue wound care, elevate the limb -- morbid obesity with BMI of 40.0-44.9, adult Patient needs to see the bariatric surgeon Patient will be given referral to Dr. Evans who is a bariatric surgeon in this hospital --Possible obstructive sleep apnea; With CPAP/BiPAP at night and as needed during daytime, Wean as tolerated Patient needs outpatient sleep study to rule out obstructive sleep apnea -- hypertension; Continue antihypertensives As needed medications -- History of atrial fibrillation Rate controlled, continue AV evans blocking agents Anticoagulation with Xarelto Medications reconciled --Anemia Hb 9,2 Anemia work-up requested Anemia of chronic disease, closely monitor --Superficial blisters, ecchymosis bilateral lower extremity Consult wound care, supportive care -- DVT prophylaxis superficial blisters Patient is on Xarelto, SCDs --Advance care planning Disease education conducted, care plan discussed, diagnosis discussed, prognosis discussed. Patient is full code. Treatment plan , discharge planning discussed patient acknowledged understanding and agreement with care plan. +30 minutes. Strongly counseled the importance of adhering to treatment plan We will monitor the patient and adjust management as needed We will closely monitor patient and adjust management as needed Plan of care reviewed with the patient his nurse case management 10/06/2021; pending wound care evaluation 10/08/21: Follow-up CT, venous Doppler reports, follow wound care recommendations Consider ID, surgery or Ortho evaluation as needed pending CT report History Interval history: Have seen and examined the patient at the bedside Patient's chart and medications reviewed Requested CT left lower limb as well as lower extremity venous Doppler Patient feels slightly better mild shortness of breath Worsening leg edema Vital signs reviewed Hospitalist Physical - Constitutional Vitals: Temp Pulse Resp BP Pulse Ox 97.3 F L 12 L 17 141/85 94 10/08/21 07:31 10/08/21 09:56 10/08/21 09:56 10/08/21 07:31 10/08/21 08:00 General appearance: Present: no acute distress, well-nourished, obese (Morbidly obese), other (On BiPAP on admission now on nasal cannula oxygen) - EENT Eyes: Present: PERRL, EOM intact - Neck Neck: Present: supple, normal ROM - Respiratory Respiratory effort: normal Respiratory: bilateral: diminished, negative: rales, rhonchi, wheezing - Cardiovascular Rhythm: regular Heart Sounds: Present: S1 & S2 - Extremities Extremities: abnormal (Bilateral lower extremity cellulitis and edema, left more than right) Extremity abnormal: edema, erythema, other (Left great toe wound) - Abdominal General gastrointestinal: soft, non-tender, non-distended, normal bowel sounds - Integumentary Integumentary: Present: clear, warm - Psychiatric Psychiatric: appropriate mood/affect, cooperative - Neurologic Neurologic: moves all extremities HEART Score - HEART Score Risk factors: > 3 risk factors or hx of atherosclerotic disease Troponin: Troponin T 0.026 ng/mL (0.00-0.029) 10/04/21 21:06 Troponin: 1-3x normal limit - Critical Actions Critical Actions: 4-6 pts:12-16.6% risk of adverse cardiac event. Should be admitted Results - Labs CBC & Chem 7: 10/10/21 04:56 10/10/21 04:56 Labs: Laboratory Last Values WBC 11.9 K/mm3 (4.5-11.0) H 10/08/21 05:39 RBC 3.43 M/mm3 (3.65-5.03) L 10/08/21 05:39 Hgb 9.6 gm/dl (11.8-15.2) L 10/08/21 05:39 Hct 30.3 % (35.5-45.6) L 10/08/21 05:39 MCV 88 fl (84-94) 10/08/21 05:39 MCH 28 pg (28-32) 10/08/21 05:39 MCHC 32 % (32-34) 10/08/21 05:39 RDW 17.3 % (13.2-15.2) H 10/08/21 05:39 Plt Count 388 K/mm3 (140-440) 10/08/21 05:39 Lymph % (Auto) 11.2 % (13.4-35.0) L 10/04/21 13:12 [place] % (Auto) 11.6 % (0.0-7.3) H 10/04/21 13:12 Eos % (Auto) 1.2 % (0.0-4.3) 10/04/21 13:12 Baso % (Auto) 0.8 % (0.0-1.8) 10/04/21 13:12 Lymph # (Auto) 1.5 K/mm3 (1.2-5.4) 10/04/21 13:12 [place] # (Auto) 1.6 K/mm3 (0.0-0.8) H 10/04/21 13:12 Eos # (Auto) 0.2 K/mm3 (0.0-0.4) 10/04/21 13:12 Baso # (Auto) 0.1 K/mm3 (0.0-0.1) 10/04/21 13:12 Add Manual Diff Complete 10/08/21 05:39 Total Counted 100 10/08/21 05:39 Seg Neutrophils % [employer] 10/08/21 05:39 Seg Neuts % (Manual) 92.0 % (40.0-70.0) H 10/08/21 05:39 Band Neutrophils % 0 % 10/08/21 05:39 Lymphocytes % (Manual) 7.0 % (13.4-35.0) L 10/08/21 05:39 Reactive Lymphs % (Man) 0 % 10/08/21 05:39 Monocytes % (Manual) 1.0 % (0.0-7.3) 10/08/21 05:39 Eosinophils % (Manual) 0 % (0.0-4.3) 10/08/21 05:39 Basophils % (Manual) 0 % (0.0-1.8) 10/08/21 05:39 Metamyelocytes % 0 % 10/08/21 05:39 Myelocytes % 0 % 10/08/21 05:39 Promyelocytes % 0 % 10/08/21 05:39 Blast Cells % 0 % 10/08/21 05:39 Nucleated RBC % Not Reportable 10/08/21 05:39 Seg Neutrophils # 10.2 K/mm3 (1.8-7.7) H 10/04/21 13:12 Seg Neutrophils # Man 10.9 K/mm3 (1.8-7.7) H 10/08/21 05:39 Band Neutrophils # 0.0 K/mm3 10/08/21 05:39 Lymphocytes # (Manual) 0.8 K/mm3 (1.2-5.4) L 10/08/21 05:39 Abs React Lymphs (Man) 0.0 K/mm3 10/08/21 05:39 Monocytes # (Manual) 0.1 K/mm3 (0.0-0.8) 10/08/21 05:39 Eosinophils # (Manual) 0.0 K/mm3 (0.0-0.4) 10/08/21 05:39 Basophils # (Manual) 0.0 K/mm3 (0.0-0.1) 10/08/21 05:39 Metamyelocytes # 0.0 K/mm3 10/08/21 05:39 Myelocytes # 0.0 K/mm3 10/08/21 05:39 Promyelocytes # 0.0 K/mm3 10/08/21 05:39 Blast Cells # 0.0 K/mm3 10/08/21 05:39 WBC Morphology Not Reportable 10/08/21 05:39 Hypersegmented Neuts Not Reportable 10/08/21 05:39 Hyposegmented Neuts Not Reportable 10/08/21 05:39 Hypogranular Neuts Not Reportable 10/08/21 05:39 Smudge Cells Not Reportable 10/08/21 05:39 Toxic Granulation Not Reportable 10/08/21 05:39 Toxic Vacuolation Not Reportable 10/08/21 05:39 Dohle Bodies Not Reportable 10/08/21 05:39 Pelger-Huet Anomaly Not Reportable 10/08/21 05:39 Rod Rods Not Reportable 10/08/21 05:39 Platelet Estimate Consistent w auto 10/08/21 05:39 Clumped Platelets Not Reportable 10/08/21 05:39 Plt Clumps, EDTA Not Reportable 10/08/21 05:39 Large Platelets Not Reportable 10/08/21 05:39 Giant Platelets Not Reportable 10/08/21 05:39 Platelet Satelliting Not Reportable 10/08/21 05:39 Plt Morphology Comment Not Reportable 10/08/21 05:39 RBC Morphology Not Reportable 10/08/21 05:39 Dimorphic RBCs Not Reportable 10/08/21 05:39 Polychromasia Not Reportable 10/08/21 05:39 Hypochromasia Not Reportable 10/08/21 05:39 Poikilocytosis Not Reportable 10/08/21 05:39 Anisocytosis 1+ 10/08/21 05:39 Microcytosis Not Reportable 10/08/21 05:39 Macrocytosis Few 10/08/21 05:39 Spherocytes Not Reportable 10/08/21 05:39 Pappenheimer Bodies Not Reportable 10/08/21 05:39 Sickle Cells Not Reportable 10/08/21 05:39 Target Cells Not Reportable 10/08/21 05:39 Tear Drop Cells Not Reportable 10/08/21 05:39 Ovalocytes Not Reportable 10/08/21 05:39 Helmet Cells Not Reportable 10/08/21 05:39 [place] Bodies Not Reportable 10/08/21 05:39 [place] Rings Not Reportable 10/08/21 05:39 [place] Cells Not Reportable 10/08/21 05:39 Bite Cells Not Reportable 10/08/21 05:39 Crenated Cell Not Reportable 10/08/21 05:39 Elliptocytes Not Reportable 10/08/21 05:39 Acanthocytes (Spur) Not Reportable 10/08/21 05:39 Rouleaux Not Reportable 10/08/21 05:39 Hemoglobin C Crystals Not Reportable 10/08/21 05:39 Schistocytes Not Reportable 10/08/21 05:39 Malaria parasites Not Reportable 10/08/21 05:39 Michael Bodies Not Reportable 10/08/21 05:39 Hem Pathologist Commnt No 10/08/21 05:39 PT 16.9 Sec. (12.2-14.9) H 10/06/21 16:54 INR 1.23 (0.87-1.13) H 10/06/21 16:54 APTT 28.6 Sec. (24.2-36.6) 10/06/21 16:54 ABG pH 7.260 pH Units (7.350-7.450) L 10/04/21 16:30 ABG pCO2 67.7 mm Hg 10/04/21 16:30 ABG pO2 97.1 mm Hg (80.0-90.0) H 10/04/21 16:30 ABG HCO3 29.7 mmol/L (20.0-26.0) H 10/04/21 16:30 ABG O2 Saturation 96.8 % (95.0-99.0) 10/04/21 16:30 ABG O2 Content 12.9 (0.0-44) 10/04/21 16:30 ABG Base Excess 1.6 mmol/L (-2.0-3.0) 10/04/21 16:30 ABG Hemoglobin 9.5 gm/dl (14.0-18.0) L 10/04/21 16:30 ABG Carboxyhemoglobin 1.9 % (0.0-5.0) 10/04/21 16:30 ABG Methemoglobin 0.4 % (0.0-1.5) 10/04/21 16:30 Oxyhemoglobin 94.6 % (95.0-99.0) L 10/04/21 16:30 FiO2 35 % 10/04/21 16:30 Sodium 139 mmol/L (137-145) 10/08/21 05:39 Potassium 4.0 mmol/L (3.6-5.0) 10/08/21 05:39 Chloride 97.1 mmol/L (98-107) L 10/08/21 05:39 Carbon Dioxide 29 mmol/L (22-30) 10/08/21 05:39 Anion Gap 17 mmol/L 10/08/21 05:39 BUN 74 mg/dL (9-20) H 10/08/21 05:39 Creatinine 1.5 mg/dL (0.8-1.3) H 10/08/21 05:39 Estimated GFR 48 ml/min 10/08/21 05:39 BUN/Creatinine Ratio 49 % 10/08/21 05:39 Glucose 146 mg/dL (75-100) H 10/08/21 05:39 POC Glucose 295 mg/dL (70-105) H 10/06/21 16:03 Calcium 8.9 mg/dL (8.4-10.2) 10/08/21 05:39 Magnesium 2.20 mg/dL (1.7-2.3) 10/08/21 05:39 Iron 16 ug/dL (49-181) L 10/05/21 19:39 TIBC 389 mcg/dL (250-450) 10/05/21 19:39 % Saturation 5.90 % 10/05/21 07:13 Transferrin 317 mg/dl (180-329) 10/05/21 07:13 Total Bilirubin 0.50 mg/dL (0.1-1.2) 10/05/21 05:52 AST 35 units/L (5-40) 10/05/21 05:52 ALT 24 units/L (7-56) 10/05/21 05:52 Alkaline Phosphatase 118 units/L (35-129) 10/05/21 05:52 Total Creatine Kinase 200 units/L (55-170) H 10/05/21 19:39 Troponin T 0.026 ng/mL (0.00-0.029) 10/04/21 21:06 NT-Pro-B Natriuret Pep 9268 pg/mL (0-900) H 10/04/21 13:12 Total Protein 7.3 g/dL (6.3-8.2) 10/05/21 05:52 Albumin 3.1 g/dL (3.9-5) L 10/05/21 05:52 Albumin/Globulin Ratio 0.7 % 10/05/21 05:52 Triglycerides 97 mg/dL (2-149) 10/04/21 13:12 Cholesterol 100 mg/dL (50-199) 10/04/21 13:12 LDL Cholesterol Direct 47 mg/dL (50-130) L 10/04/21 13:12 HDL Cholesterol 38 mg/dL (40-59) L 10/04/21 13:12 Cholesterol/HDL Ratio 2.63 % 10/04/21 13:12 Vitamin B12 900.5 pg/mL (211-911) 10/05/21 07:13 PTH Intact 109.2 pg/mL (15-65) H 10/05/21 Unknown Microbiology: Microbiology 10/04/21 15:49 Peripheral/Venous Blood Culture - Preliminary NO GROWTH AFTER 72 HOURS 10/04/21 16:39 Peripheral/Venous Blood Culture - Preliminary NO GROWTH AFTER 72 HOURS Joaquin/IV: Voiding Method Urinal Active Medications - Current Medications Current Medications: Generic Name Dose Route Start Last Admin Trade Name Freq PRN Reason Stop Dose Admin Acetaminophen 650 mg 10/04/21 20:23 Acetaminophen 325 Mg Tab PO Q4H PRN Pain MILD(1-3)/Fever >100.5/CURTIS Albuterol 2.5 mg 10/04/21 20:32 Albuterol 2.5 Mg/3 Ml Nebu IH Q4HRT PRN Shortness Of Breath Albuterol/Ipratropium 1 ampul 10/05/21 14:00 10/08/21 10:04 Ipratropium/Albuterol Sulfate 3 Ml Ampul.Neb IH 1 ampul Q6HRT MOOKIE Administration Aspirin 81 mg 10/04/21 21:00 10/08/21 10:28 Aspirin 81 Mg Tab Chew PO 81 mg QDAY MOOKIE Administration Atorvastatin Calcium 40 mg 10/04/21 22:00 10/07/21 22:28 Atorvastatin 40 Mg Tab PO 40 mg QHS MOOKIE Administration Azithromycin 500 mg 10/05/21 22:00 10/07/21 22:30 Azithromycin 250 Mg Tab PO 10/08/21 22:01 500 mg Q24H MOOKIE Administration Protocol Budesonide 0.5 mg 10/05/21 20:00 10/08/21 10:04 Budesonide 0.5 Mg/2 Ml Nebu IH 0.5 mg Q12HRT MOOKIE Administration Furosemide 40 mg 10/06/21 13:00 10/08/21 06:59 Furosemide 40 Mg/4 Ml Inj IV 40 mg Q6H MOOKIE Administration Gabapentin 300 mg 10/04/21 22:00 10/08/21 10:28 Gabapentin 300 Mg Cap PO 300 mg BID MOOKIE Administration Hydromorphone HCl 0.5 mg 10/04/21 20:24 Hydromorphone 0.5 Mg/0.5 Ml Inj IV Q3H PRN Pain , Severe (7-10) Ceftriaxone Sodium 2 gm in 100 mls @ 200 mls/hr 10/04/21 22:00 10/07/21 22:29 Rocephin/Ns 2 Gm/100 Ml IV 10/08/21 22:29 200 mls/hr Q24H MOOKIE Administration Protocol Ferric Sodium Gluconate 110 mls @ 100 mls/hr 10/06/21 13:00 10/07/21 09:37 Complex 125 mg/ Sodium IV 10/13/21 11:05 100 mls/hr Chloride DAILY MOOKIE Administration Methylprednisolone Sodium Succinate 40 mg 10/08/21 22:00 Methylprednisolone Sod Succinate 40 Mg/1 Ml Inj IV Q12H MOOKIE Metoclopramide HCl 10 mg 10/04/21 20:24 Metoclopramide 10 Mg/2 Ml Inj IV Q6H PRN Nausea And Vomiting Metoprolol Succinate 200 mg 10/04/21 22:00 10/08/21 10:28 Metoprolol Succinate Xl 100 Mg Tab PO 200 mg QDAY MOOKIE Administration Morphine Sulfate 2 mg 10/04/21 20:24 10/07/21 06:48 Morphine 2 Mg/1 Ml Inj IV 2 mg Q4H PRN Administration Pain, Moderate (4-6) Ondansetron HCl 4 mg 10/04/21 20:23 Ondansetron 4 Mg/2 Ml Inj IV Q3H PRN Nausea And Vomiting Oxycodone/Acetaminophen 1 tab 10/04/21 20:24 10/08/21 10:35 Oxycodone /Acetaminophen 5-325mg Tab PO 1 tab Q6H PRN Administration Pain, Moderate (4-6) Rivaroxaban 20 mg 10/06/21 17:00 10/07/21 17:23 Rivaroxaban 20 Mg Tab PO 20 mg QPMDIAB MOOKIE Administration Protocol Sodium Chloride 10 ml 10/04/21 22:00 10/08/21 10:29 Sodium Chloride 0.9% 10 Ml Flush Syringe IV 10 ml BID MOOKIE Administration Sodium Chloride 10 ml 10/04/21 20:23 Sodium Chloride 0.9% 10 Ml Flush Syringe IV PRN PRN LINE FLUSH
[2021-10-08] MEDS: RIVAROXABAN 20 MG TAB PO SCH (17:00)
--- NOTE | 2021-10-08 17:36 | Cat Scan Report ---
CT lower extremity LT wo con INDICATION: Cellulitis/nonhealing wounds. TECHNIQUE: CT of the left foot without contrast. All CT scans at this location are performed using CT dose reduc tion for ALARA by means of automated exposure control. COMPARISON: None available. FINDINGS: There is a skin wound in the distal great toe in the left foot with subcutaneous air. There are no fo reign bodies. There is no bone destruction to suggest osteomyelitis. Otherwise, there is mild diffuse osseous demineralization. There is diffuse nonspecific subcutaneous edema throughout the feet but gr eater on the left. IMPRESSION: 1. Skin wound in the distal left great toe with subcutaneous air. No foreign bodies. No CT evidence f or osteomyelitis. Signer Name: Ian Lopez MD Signed: 10/08/2021 5:31 PM Workstation Name: [id number]
[2021-10-08] MEDS: methylPREDNISolone Sod Succinate 40 MG/1 ML INJ IV SCH (22:12)
[2021-10-08] MEDS: AZITHROMYCIN 250 MG TAB PO SCH (22:12)
[2021-10-08] MEDS: cefTRIAXone/NS 2 GM/100 ML 2 GM/100 ML BAG IV SCH (22:13)
[2021-10-09] MEDS: FUROSEMIDE 40 MG/4 ML INJ IV SCH ×4 (01:26→19:04)
[2021-10-09] MEDS: IPRATROPIUM/ALBUTEROL SULFATE 3 ML AMPUL.NEB IH SCH ×4 (03:05→20:57)
[2021-10-09] MEDS: oxyCODONE /ACETAMINOPHEN 5-325MG TAB PO PRN ×3 (06:35→17:15)
[2021-10-09] MEDS: BUDESONIDE 0.5 MG/2 ML NEBU IH SCH ×2 (08:35→20:57)
[2021-10-09] MEDS: METOPROLOL SUCCINATE XL 100 MG TAB PO SCH (11:44)
--- NOTE | 2021-10-09 11:46 | Electrocardiograph Report ---
[facility] Test Date: 2021-10-04 Test Time: 12:37:45 Pat Name: FRANCISCO VARGAS Department: [address] [place] [address] Room: A476 Gender: M Color Room Attendant: XIMENA : 1960 Requested By: LUL JAY Order Number: [id number] Reading MD: Dagoberto Cardenas Measurements Intervals [place] Rate: 75 P: OR: QRS: 79 QRSD: 110 T: 69 QT: 410 QTc: 460 Interpretive Statements Atrial fibrillation Low voltage, precordial leads Incomplete right bundle branch block Poor precordial R wave progression No previous ECG available for comparison Electronically Signed On 10-09-2021 11:46:15 EDT by Dagoberto Cardenas
[2021-10-09] MEDS: GABAPENTIN 300 MG CAP PO SCH ×2 (11:50→21:35)
[2021-10-09] MEDS: ASPIRIN 81 MG TAB CHEW PO SCH (11:50)
--- NOTE | 2021-10-09 11:55 | Progress Note ---
Assessment and Plan Pt is a 60-year-old male with a hx of COPD (on 3L home O2), CHF, morbid obesity/SUNIL, tobacco abuse, and EtOH abuse who presented in respiratory distress requiring BiPAP. Of note, pt has a hx of COVID-19 PNA as well in May 2020 requiring a prolonged ICU stay and trach in the setting of ongoing hypoxic respiratory failure. Pt is previously unknown to our practice. Acute on Chronic Respiratory Failure (on 3L home O2 per pt report) COPD ?Exacerbation Acute on Chronic HFpEF Cardiomyopathy (EF 45-50% in 2020, no ischemic workup on file, pt denies hx of FL/CAD/stents) REECE / ?CKD Anemia Permanent AF (s/p SERGIO in 2017, on Xarelto) HTN DM2 Morbid Obesity SUNIL H/o COVID-19 PNA (05/2020-06/2020, requiring a prolonged ICU admission & tracheostomy) Tobacco Abuse EtOH Abuse (drinks 1/5 pint liquor per day) Sacral Ulcer Medical Non-Compliance Echocardiogram 10/04/2021: Left ventricule is normal size. Overall LV systolic function appears normal. Mild concentric left ventricular hypertrophy. Cannot assess regional wall motion abnormalities. Unable to assess. LVEF is 55 to 60%. Technically limited study due to body habitus Plan: Anticoagulated on Xarelto Patient currently on IV Lasix 40mg q6h per Nephro. Will defer volume management to nephrology due to renal function Continue IV diuresis with strict I/Os and close monitoring of renal indices & electrolytes Continue BB, statin, bAsa; Aldactone & Losartan held in light of renal fxn. Wound care has been consulted for LLE wound Records requested from [facility]. Still awaiting records Patient not being compliant with laborer stores. Discussed with patient importance of wearing monitor. Patient agreed to wear telemetry. Asked nurse to put patient back on laborer stores Pt seen in conjunction with Dr. Go who agrees with the assessment and plan of care. - Patient Problems (1) Acute exacerbation of chronic obstructive pulmonary disease (COPD) Current Visit: Yes Status: Acute (2) Acute respiratory failure with hypoxia and hypercapnia Current Visit: Yes Status: Acute (3) Bilateral lower leg cellulitis Current Visit: Yes Status: Acute (4) Chronic atrial fibrillation Current Visit: Yes Status: Acute (5) Pulmonary edema Current Visit: Yes Status: Acute (6) Renal insufficiency Current Visit: Yes Status: Acute (7) Morbid obesity with BMI of 40.0-44.9, adult Current Visit: Yes Status: Chronic Subjective Date of service: 10/09/21 Principal diagnosis: COPD, acute on chronic HFmrEF Interval history: Patient sitting in bed in no acute distress. Patient continues to report improvement in respiratory status along with good urine Patient not wearing monitor. Per staff patient noncompliant with telemetry Objective Vital Signs Temp Pulse Pulse Resp Resp BP Pulse Ox 10/09/21 11:44 94 H 10/09/21 10:00 98 10/09/21 08:35 92 H 17 10/09/21 08:00 95 10/09/21 07:15 97.3 F L 132 H 20 133/98 93 10/09/21 02:00 106 H 18 10/08/21 23:09 102 H 22 97 10/08/21 21:08 97.2 F L 101 H 133/85 95 10/08/21 20:40 92 H 20 97 10/08/21 20:00 95 10/08/21 15:19 105 H 20 135/89 94 - Physical Examination General: No Apparent Distress HEENT: Positive: EOMI, Normocephaly Neck: Positive: neck supple Cardiac: Positive: irregularly irregular Lungs: Positive: Decreased Breath Sounds Neuro: Positive: Grossly Intact Abdomen: Positive: Soft Skin: Positive: Wound (sacral, left knee, left lateral calf ), Moist Extremities: Present: +4 Edema, Ulceration Noted (BLE blistering), warm, Other (venous stasis changes) - Labs and Meds Comprehensive Metabolic Panel 10/09/21 Range/Units 04:40 Creatinine 1.7 H (0.8-1.3) mg/dL - Imaging and Cardiology EKG: report reviewed, image reviewed Echo: report reviewed (06/09/2020: EF 45-50%, mildly dilated LA, mild AI, trace MR) - Telemetry EKG Rhythm: Atrial Fibrillation - EKG Supraventricular dysrhythmia: atrial fibrillation - Allied health notes Allied health notes reviewed: nursing
[2021-10-09] MEDS: SODIUM FERRIC GLUCON/SUCRO 125 MG in SODIUM CHLORIDE 0.9% 100 ML IV SCH (12:03)
[2021-10-09] MEDS: methylPREDNISolone Sod Succinate 40 MG/1 ML INJ IV SCH ×2 (12:09→21:35)
--- NOTE | 2021-10-09 12:53 | Progress Note ---
Assessment and Plan Assessment: Acute Kidney injury, Unknown CKD Hyperkalemia Acute hypoxic respiratory failure Acute CHF Hypertension Obesity Anemia Afib Plan: -Renal labs reviewed. Serum creatinine 1.7 today, yesterday's was 1.5, stable, UOP 1700 ml -No baseline serum creatinine available so unknown if has CKD or not -Renal US was negative for hydronephrosis -Held Aldactone for now due to renal failure/hyperkalemia -CXR congested, has 3+ leg edema, needs aggressive diuresis- on Lasix 40 mg IV every 6 hours for now -Low Iron of 16- on Ferric Gluconate 125 mcg@ 100 ml/he x 8 doses, currently on bag 4 of 8 -PTH 109.2, suggestive of CKD -Renally dose all medications -Avoid Nephrotoxic agents -Strict I/O's daily- intake 950 ml, UOP 1700 ml -Continue to monitor renal function closely -Plan of care reviewed by Dr. Aguilar Subjective Date of service: 10/09/21 Principal diagnosis: COPD, acute on chronic HFmrEF Interval history: Patient seen sitting at edge of bed. Reviewed renal labs. He asked about wound dressing change to his ruptured blisters on legs, currently has dressing over them but wants to know if can get a wound care nurse to see them. He will discuss with Attending Objective - Vital Signs Vital signs: Vital Signs - 12hr 10/09/21 10/09/21 10/09/21 02:00 07:15 08:00 Temperature 97.3 F L Pulse Rate 132 H Pulse Rate [ 106 H Bilateral Throughout] Respiratory 20 Rate Respiratory 18 Rate [Bilateral Throughout] Blood Pressure 133/98 O2 Sat by Pulse 93 95 Oximetry 10/09/21 10/09/21 10/09/21 08:35 10:00 11:29 Temperature 97.8 F Pulse Rate 121 H Pulse Rate [ 92 H Bilateral Throughout] Respiratory 20 Rate Respiratory 17 Rate [Bilateral Throughout] Blood Pressure 161/90 O2 Sat by Pulse 98 98 Oximetry 10/09/21 11:44 Temperature Pulse Rate 94 H Pulse Rate [ Bilateral Throughout] Respiratory Rate Respiratory Rate [Bilateral Throughout] Blood Pressure O2 Sat by Pulse Oximetry - General Appearance General appearance: well-developed, appears stated age, obese, fatigue EENT: ATNC, PERRL, hearing intact, vision intact Neck: no JVD, supple Respiratory: Present: Decreased Breath Sounds Cardiology: S1S2 Gastrointestinal: normoactive bowel sounds Integumentary: erythema, skin tear Neurologic: alert and oriented x3 Musculoskeletal: joint swelling - Lab 10/08/21 05:39 10/09/21 04:40 Most recent lab results ABG pH 7.260 pH Units (7.350-7.450) L 10/04/21 16:30 ABG pCO2 67.7 mm Hg 10/04/21 16:30 ABG pO2 97.1 mm Hg (80.0-90.0) H 10/04/21 16:30 ABG HCO3 29.7 mmol/L (20.0-26.0) H 10/04/21 16:30 ABG O2 Saturation 96.8 % (95.0-99.0) 10/04/21 16:30 Calcium 8.9 mg/dL (8.4-10.2) 10/08/21 05:39 Magnesium 2.20 mg/dL (1.7-2.3) 10/08/21 05:39 Medications & Allergies - Medications Allergies/Adverse Reactions: Allergies No Known Allergies Allergy (Verified 10/09/21 08:15) Home Medications: Home Medications Medication Instructions Recorded Confirmed Last Taken Type Albuterol Sulfate [Proair 90 mcg PO PRN 10/04/21 10/09/21 Unknown History Respiclick] Aspirin [Aspirin BABY CHEW TAB] 81 mg PO QDAY 10/04/21 10/09/21 Unknown History AtorvaSTATin [Lipitor] 40 mg PO QHS 10/04/21 10/09/21 Unknown History Gabapentin 300 mg PO TID 10/04/21 10/09/21 Unknown History Losartan [Cozaar] 25 mg PO QDAY 10/04/21 10/09/21 Unknown History Rivaroxaban [Xarelto] 20 mg PO DAILY 10/04/21 10/09/21 Unknown History Budesonide/Formoterol Fumarate 2 puff INHALATION BID 10/08/21 10/09/21 Unknown History [Symbicort 80-4.5 Mcg Inhaler] Metoprolol Xl [Metoprolol 300 mg PO QDAY 10/08/21 10/09/21 Unknown History SUCCINATE ER TAB] Oxycodone HCl/Acetaminophen 1 each PO Q8H PRN 10/08/21 10/09/21 Unknown History [Percocet 10/325 mg] Torsemide [Demadex] 100 mg PO QDAY 10/08/21 10/09/21 Unknown History traZODone [Desyrel] 50 mg PO QHS 10/08/21 10/09/21 Unknown History Amoxicillin [Trimox CAP] 500 mg PO Q8H 10/09/21 10/09/21 Unknown History Cholecalciferol (Vitamin D3) 50,000 unit PO QWEEK 10/09/21 10/09/21 Unknown History [Vitamin D3 50,000UNIT CAP] Cyanocobalamin (Vitamin B-12) 1,000 mcg PO QDAY 10/09/21 10/09/21 Unknown History [B-12] Naloxone HCl [Narcan Nasal [place]] 4 mg NS PRN PRN 10/09/21 10/09/21 Unknown History Omeprazole 10 mg PO QDAY 10/09/21 10/09/21 Unknown History Vancomycin/Water For Inj (Peg) 1 gm IV Q12H 10/09/21 10/09/21 Unknown History [Vancomycin 1 Gram/200 ml Bag] Active Medications: Generic Name Dose Route Start Last Admin Trade Name Freq PRN Reason Stop Dose Admin Acetaminophen 650 mg 10/04/21 20:23 Acetaminophen 325 Mg Tab PO Q4H PRN Pain MILD(1-3)/Fever >100.5/CURTIS Albuterol 2.5 mg 10/04/21 20:32 Albuterol 2.5 Mg/3 Ml Nebu IH Q4HRT PRN Shortness Of Breath Albuterol/Ipratropium 1 ampul 10/05/21 14:00 10/09/21 08:35 Ipratropium/Albuterol Sulfate 3 Ml Ampul.Neb IH 1 ampul Q6HRT MOOKIE Administration Aspirin 81 mg 10/04/21 21:00 10/09/21 11:50 Aspirin 81 Mg Tab Chew PO 81 mg QDAY MOOKIE Administration Atorvastatin Calcium 40 mg 10/04/21 22:00 10/08/21 22:12 Atorvastatin 40 Mg Tab PO 40 mg QHS MOOKIE Administration Budesonide 0.5 mg 10/05/21 20:00 10/09/21 08:35 Budesonide 0.5 Mg/2 Ml Nebu IH 0.5 mg Q12HRT MOOKIE Administration Furosemide 40 mg 10/06/21 13:00 10/09/21 12:10 Furosemide 40 Mg/4 Ml Inj IV 40 mg Q6H MOOKIE Administration Gabapentin 300 mg 10/04/21 22:00 10/09/21 11:50 Gabapentin 300 Mg Cap PO 300 mg BID MOOKIE Administration Hydromorphone HCl 0.5 mg 10/04/21 20:24 Hydromorphone 0.5 Mg/0.5 Ml Inj IV Q3H PRN Pain , Severe (7-10) Ferric Sodium Gluconate 110 mls @ 100 mls/hr 10/06/21 13:00 10/09/21 12:03 Complex 125 mg/ Sodium IV 10/13/21 11:05 100 mls/hr Chloride DAILY MOOKIE Administration Methylprednisolone Sodium Succinate 40 mg 10/08/21 22:00 10/09/21 12:09 Methylprednisolone Sod Succinate 40 Mg/1 Ml Inj IV 40 mg Q12H MOOKIE Administration Metoclopramide HCl 10 mg 10/04/21 20:24 Metoclopramide 10 Mg/2 Ml Inj IV Q6H PRN Nausea And Vomiting Metoprolol Succinate 200 mg 10/04/21 22:00 10/09/21 11:44 Metoprolol Succinate Xl 100 Mg Tab PO 200 mg QDAY MOOKIE Administration Morphine Sulfate 2 mg 10/04/21 20:24 10/07/21 06:48 Morphine 2 Mg/1 Ml Inj IV 2 mg Q4H PRN Administration Pain, Moderate (4-6) Ondansetron HCl 4 mg 10/04/21 20:23 Ondansetron 4 Mg/2 Ml Inj IV Q3H PRN Nausea And Vomiting Oxycodone/Acetaminophen 1 tab 10/04/21 20:24 10/09/21 11:51 Oxycodone /Acetaminophen 5-325mg Tab PO 1 tab Q6H PRN Administration Pain, Moderate (4-6) Rivaroxaban 20 mg 10/06/21 17:00 10/08/21 17:00 Rivaroxaban 20 Mg Tab PO 20 mg QPMDIAB MOOKIE Administration Protocol Sodium Chloride 10 ml 10/04/21 22:00 10/09/21 11:52 Sodium Chloride 0.9% 10 Ml Flush Syringe IV 10 ml BID MOOKIE Administration Sodium Chloride 10 ml 10/04/21 20:23 Sodium Chloride 0.9% 10 Ml Flush Syringe IV PRN PRN LINE FLUSH
--- NOTE | 2021-10-09 16:16 | Vascular Lab Report ---
DUPLEX DOPPLER LOWER EXTREMITY VEINS, BILATERAL INDICATION / CLINICAL INFORMATION: Cellulitis/infected wounds/evaluate for DVT. TECHNIQUE: Duplex doppler imaging was performed through the veins of both lower extremities using ivette ous compression and other maneuvers. COMPARISON: None available. FINDINGS: RIGHT COMMON FEMORAL VEIN: Negative. RIGHT FEMORAL VEIN: Negative. RIGHT POPLITEAL VEIN: Negative. RIGHT CALF VEINS: Negative. LEFT COMMON FEMORAL VEIN: Negative. LEFT FEMORAL VEIN: Negative. LEFT POPLITEAL VEIN: Negative. LEFT CALF VEINS: Negative. ADDITIONAL FINDINGS: Bilateral lower extremity edema. IMPRESSION: 1. No sonographic evidence for DVT in either lower extremity. Scribed by: Dara Rain RDMS, [place], [place] Scribed: 10/09/2021 1:12 PM I have reviewed the images, agree with this report, and edited this report as needed. Signer Name: Butch Lee MD Signed: 10/09/2021 4:12 PM Workstation Name: [id number]
[2021-10-09] MEDS: RIVAROXABAN 20 MG TAB PO SCH (17:15)
--- NOTE | 2021-10-09 18:40 | Progress Note ---
Assessment and Plan 60-year-old male who is morbidly obese with history of atrial fibrillation congestive heart failure, COPD with 2 L home oxygen use, hypertension and neuropathy comes in for acute shortness of breath and respiratory distress. 10/09/2021; cont diuresis. CT LE showed no osteo and venous doppler is negative. pending wound care evaluation. will also consult vascular and order arterial doppler study. Assessment and plan; --Acute respiratory failure with hypoxia and hypercapnia Patient has chronic respiratory failure and and is on home oxygen of 2 L. acute respiratory failure with hypoxia and hypercarbia. His ABG significant for pH of 7.254 and bicarb and CO2 of 66.8 and PO2 of 87.6. Patient initiated oxygen titrate O2 sats to more than 90% , nebulizers , tapering dose of IV steroids , empiric IV antibiotics Pulmonary evaluation and recommendations noted and appreciated -- Acute exacerbation of chronic obstructive pulmonary disease (COPD) Oxygen titrate O2 sats more than 90%, home O2 evaluation at discharge Patient on IV antibiotics IV Solu-Medrol and duo nebs [id number] and Pulmicort. Wean as tolerated, physical therapy occupational therapy and rehabilitation Pulmonary following --Acute on chronic diastolic CHF (congestive heart failure) Patient initiated on Lasix and Aldactone. Echocardiogram LVEF 55 to 60% Cardiology following Daily weights and intake and output. -- Morbid obesity with BMI of 40.0-44.9, adult Patient needs to see the bariatric surgeon Patient will be given referral to Dr. Evans who is a bariatric surgeon in this hospital --Possible obstructive sleep apnea; With CPAP/BiPAP at night and as needed during daytime, Wean as tolerated Patient needs outpatient sleep study to rule out obstructive sleep apnea -- hypertension; Continue antihypertensives As needed medications -- History of atrial fibrillation Rate controlled, continue AV evans blocking agents Anticoagulation with Xarelto Medications reconciled --Anemia Hb 9,2 Anemia work-up requested Anemia of chronic disease, closely monitor --Superficial blisters, ecchymosis bilateral lower extremity Consult wound care, supportive care -- DVT prophylaxis superficial blisters Patient is on Xarelto, SCDs --Advance care planning Disease education conducted, care plan discussed, diagnosis discussed, prognosis discussed. Patient is full code. Treatment plan , discharge planning discussed patient acknowledged understanding and agreement with care plan. +30 minutes. Strongly counseled the importance of adhering to treatment plan Subjective Date of service: 10/09/21 Principal diagnosis: COPD, acute on chronic HFmrEF Interval history: Have seen and examined the patient at the bedside Patient's chart and medications reviewed Worsening leg edema Vital signs reviewed Objective - Exam Narrative Exam: General appearance: Present: no acute distress, well-nourished, obese (Morbidly obese), other (On BiPAP on admission now on nasal cannula oxygen) - EENT Eyes: Present: PERRL, EOM intact - Neck Neck: Present: supple, normal ROM - Respiratory Respiratory effort: normal Respiratory: bilateral: diminished, negative: rales, rhonchi, wheezing - Cardiovascular Rhythm: regular Heart Sounds: Present: S1 & S2 - Extremities Extremities: abnormal (Bilateral lower extremity cellulitis and edema, left more than right) Extremity abnormal: edema, erythema, other (Left great toe wound) - Abdominal General gastrointestinal: soft, non-tender, non-distended, normal bowel sounds - Integumentary Integumentary: Present: clear, warm - Psychiatric Psychiatric: appropriate mood/affect, cooperative - Neurologic Neurologic: moves all extremities - Constitutional Vitals: Vital Signs - 12hr 10/09/21 10/09/21 10/09/21 07:15 08:00 08:35 Temperature 97.3 F L Pulse Rate 132 H Pulse Rate [ 92 H Bilateral Throughout] Respiratory 20 Rate Respiratory 17 Rate [Bilateral Throughout] Blood Pressure 133/98 O2 Sat by Pulse 93 95 Oximetry 10/09/21 10/09/21 10/09/21 10:00 11:29 11:44 Temperature 97.8 F Pulse Rate 121 H 94 H Pulse Rate [ Bilateral Throughout] Respiratory 20 Rate Respiratory Rate [Bilateral Throughout] Blood Pressure 161/90 O2 Sat by Pulse 98 98 Oximetry 10/09/21 10/09/21 15:08 15:28 Temperature 98.3 F Pulse Rate 105 H Pulse Rate [ 85 Bilateral Throughout] Respiratory 18 Rate Respiratory 17 Rate [Bilateral Throughout] Blood Pressure 146/84 O2 Sat by Pulse 96 Oximetry - Labs CBC & Chem 7: 10/10/21 04:56 10/10/21 04:56 Labs: Abnormal lab results 10/09/21 Range/Units 04:40 Creatinine 1.7 H (0.8-1.3) mg/dL HEART Score - HEART Score Risk factors: > 3 risk factors or hx of atherosclerotic disease Troponin: Troponin T 0.026 ng/mL (0.00-0.029) 10/04/21 21:06 Troponin: 1-3x normal limit - Critical Actions Critical Actions: 4-6 pts:12-16.6% risk of adverse cardiac event. Should be admitted
[2021-10-10] MEDS: FUROSEMIDE 40 MG/4 ML INJ IV SCH ×5 (01:10→18:24)
[2021-10-10] MEDS: oxyCODONE /ACETAMINOPHEN 5-325MG TAB PO PRN ×2 (02:13→21:30)
[2021-10-10] MEDS: IPRATROPIUM/ALBUTEROL SULFATE 3 ML AMPUL.NEB IH SCH ×4 (02:35→20:51)
[2021-10-10 05:28] LABS: Hematocrit 35.7 % (35.5-45.6); Mean Corpuscular HGB Conc 31 % (32-34); Mean Corpuscular Volume 91 fl (84-94); Platelet Count 297 K/mm3 (140-440); Red Blood Count 3.94 M/mm3 (3.65-5.03); Red Cell Distribution Width 17.8 % (13.2-15.2)
[2021-10-10 06:01] LABS: Calcium 8.5 mg/dL (8.4-10.2)
[2021-10-10] MEDS: BUDESONIDE 0.5 MG/2 ML NEBU IH SCH ×2 (08:05→20:51)
--- NOTE | 2021-10-10 11:51 | Progress Note ---
Assessment and Plan Pt is a 60-year-old male with a hx of COPD (on 3L home O2), CHF, morbid obesity/SUNIL, tobacco abuse, and EtOH abuse who presented in respiratory distress requiring BiPAP. Of note, pt has a hx of COVID-19 PNA as well in May 2020 requiring a prolonged ICU stay and trach in the setting of ongoing hypoxic respiratory failure. Pt is previously unknown to our practice. Acute on Chronic Respiratory Failure (on 3L home O2 per pt report) COPD ?Exacerbation Acute on Chronic HFpEF Cardiomyopathy (EF 45-50% in 2020, no ischemic workup on file, pt denies hx of SD/CAD/stents) REECE / ?CKD Anemia Permanent AF (s/p SERGIO in 2017, on Xarelto) HTN DM2 Morbid Obesity SUNIL H/o COVID-19 PNA (05/2020-06/2020, requiring a prolonged ICU admission & tracheostomy) Tobacco Abuse EtOH Abuse (drinks 1/5 pint liquor per day) Sacral Ulcer Medical Non-Compliance Echocardiogram 10/04/2021: Left ventricule is normal size. Overall LV systolic function appears normal. Mild concentric left ventricular hypertrophy. Cannot assess regional wall motion abnormalities. Unable to assess. LVEF is 55 to 60%. Technically limited study due to body habitus Plan: Anticoagulated on Xarelto Patient currently on IV Lasix 40mg q6h per Nephro. Will defer volume management to nephrology due to renal function Continue IV diuresis with strict I/Os and close monitoring of renal indices & electrolytes Continue BB, statin, bAsa; Aldactone & Losartan held in light of renal fxn. Wound care has been consulted for LLE wound Records requested from [facility]. Still awaiting records Patient wearing monitor now A. fib rate trending 90s to low 100s Continue present management Pt seen in conjunction with Dr. Go who agrees with the assessment and plan of care. - Patient Problems (1) Acute exacerbation of chronic obstructive pulmonary disease (COPD) Current Visit: Yes Status: Acute (2) Acute respiratory failure with hypoxia and hypercapnia Current Visit: Yes Status: Acute (3) Bilateral lower leg cellulitis Current Visit: Yes Status: Acute (4) Chronic atrial fibrillation Current Visit: Yes Status: Acute (5) Pulmonary edema Current Visit: Yes Status: Acute (6) Renal insufficiency Current Visit: Yes Status: Acute (7) Morbid obesity with BMI of 40.0-44.9, adult Current Visit: Yes Status: Chronic Subjective Date of service: 10/10/21 Principal diagnosis: COPD, acute on chronic HFmrEF Interval history: Patient sitting in bed in no acute distress. Patient continues to report improvement in respiratory status along with good urine Patient A. fib rate trending 90s to 100s Objective Vital Signs Temp Pulse Pulse Resp Resp BP BP 10/10/21 08:26 97 H 20 10/10/21 08:05 10/10/21 07:44 98.3 F 109 H 18 131/79 10/10/21 06:30 10/10/21 02:35 108 H 20 10/10/21 02:30 107 H 24 10/10/21 02:20 91 H 148/87 10/10/21 00:50 10/09/21 20:57 101 H 18 10/09/21 20:55 10/09/21 20:00 101 H 10/09/21 15:28 98.3 F 105 H 18 146/84 10/09/21 15:08 85 17 Pulse Ox 10/10/21 08:26 10/10/21 08:05 94 10/10/21 07:44 95 10/10/21 06:30 94 10/10/21 02:35 10/10/21 02:30 95 10/10/21 02:20 92 10/10/21 00:50 96 10/09/21 20:57 10/09/21 20:55 96 10/09/21 20:00 10/09/21 15:28 96 10/09/21 15:08 - Physical Examination General: No Apparent Distress HEENT: Positive: EOMI, Normocephaly Neck: Positive: neck supple Cardiac: Positive: irregularly irregular Lungs: Positive: Decreased Breath Sounds Neuro: Positive: Grossly Intact Abdomen: Positive: Soft Skin: Positive: Wound (sacral, left knee, left lateral calf ), Moist Extremities: Present: +4 Edema, Ulceration Noted (BLE blistering), warm, Other (venous stasis changes) - Labs and Meds CBC 10/10/21 Range/Units 04:56 WBC 12.9 H (4.5-11.0) K/mm3 RBC 3.94 (3.65-5.03) M/mm3 Hgb 11.0 L (11.8-15.2) gm/dl Hct 35.7 (35.5-45.6) % Plt Count 297 (140-440) K/mm3 Comprehensive Metabolic Panel 10/10/21 Range/Units 04:56 Sodium 137 (137-145) mmol/L Potassium 4.9 D (3.6-5.0) mmol/L Chloride 97.2 L (98-107) mmol/L Carbon Dioxide 28 (22-30) mmol/L BUN 81 H (9-20) mg/dL Creatinine 1.5 H (0.8-1.3) mg/dL Glucose 138 H (75-100) mg/dL Calcium 8.5 (8.4-10.2) mg/dL - Imaging and Cardiology EKG: report reviewed, image reviewed Echo: report reviewed (06/09/2020: EF 45-50%, mildly dilated LA, mild AI, trace MR) - Telemetry EKG Rhythm: Atrial Fibrillation - EKG Supraventricular dysrhythmia: atrial fibrillation - Allied health notes Allied health notes reviewed: nursing
--- NOTE | 2021-10-10 12:04 | Progress Note ---
Assessment and Plan Assessment: Acute Kidney injury, Unknown CKD Hyperkalemia Acute hypoxic respiratory failure Acute CHF Hypertension Obesity Anemia Afib Plan: -Renal labs reviewed. Serum creatinine 1.5 today, yesterday's was 1.7, stable, UOP 2600 ml -No baseline serum creatinine available so unknown if has CKD or not -Renal US was negative for hydronephrosis -Held Aldactone for now due to renal failure/hyperkalemia -CXR congested, has 3+ leg edema, diuresing on Lasix 40 mg IV every 6 hours. Will add Metolazone 2.5 mg po BID to be given 1 hour before Lasix. -Was on Torsemide 100 mg po daily at home, will likely resume this upon discharge -Low Iron of 16- on Ferric Gluconate 125 mcg@ 100 ml/he x 8 doses, currently on bag 5 of 8 -PTH 109.2, suggestive of CKD -Renally dose all medications -Avoid Nephrotoxic agents -Strict I/O's daily- intake 500 ml, UOP 2600 ml (-2100 ml) -Continue to monitor renal function closely -Plan of care reviewed by Dr. Aguilar Subjective Date of service: 10/10/21 Principal diagnosis: COPD, acute on chronic HFmrEF Interval history: Patient seen sitting at edge of bed. Reviewed renal labs. Discussed with RN about patient's request for WOCN Objective - Vital Signs Vital signs: Vital Signs - 12hr 10/10/21 10/10/21 10/10/21 00:50 02:20 02:30 Temperature Pulse Rate 91 H 107 H Pulse Rate [ Bilateral Throughout] Respiratory 24 Rate Respiratory Rate [Bilateral Throughout] Blood Pressure Blood Pressure 148/87 [Left] O2 Sat by Pulse 96 92 95 Oximetry 10/10/21 10/10/21 10/10/21 02:35 06:30 07:44 Temperature 98.3 F Pulse Rate 109 H Pulse Rate [ 108 H Bilateral Throughout] Respiratory 18 Rate Respiratory 20 Rate [Bilateral Throughout] Blood Pressure 131/79 Blood Pressure [Left] O2 Sat by Pulse 94 95 Oximetry 10/10/21 10/10/21 08:05 08:26 Temperature Pulse Rate Pulse Rate [ 97 H Bilateral Throughout] Respiratory Rate Respiratory 20 Rate [Bilateral Throughout] Blood Pressure Blood Pressure [Left] O2 Sat by Pulse 94 Oximetry - General Appearance General appearance: well-developed, appears stated age, obese, fatigue EENT: ATNC, PERRL, hearing intact, vision intact Neck: no JVD, supple Respiratory: Present: Decreased Breath Sounds Cardiology: S1S2 Gastrointestinal: normoactive bowel sounds, obese Integumentary: erythema, skin tear Neurologic: alert and oriented x3 Musculoskeletal: joint swelling, other (has 2-3+ edema to BLE) - Lab 10/10/21 04:56 10/10/21 04:56 Most recent lab results ABG pH 7.260 pH Units (7.350-7.450) L 10/04/21 16:30 ABG pCO2 67.7 mm Hg 10/04/21 16:30 ABG pO2 97.1 mm Hg (80.0-90.0) H 10/04/21 16:30 ABG HCO3 29.7 mmol/L (20.0-26.0) H 10/04/21 16:30 ABG O2 Saturation 96.8 % (95.0-99.0) 10/04/21 16:30 Calcium 8.5 mg/dL (8.4-10.2) 10/10/21 04:56 Magnesium 2.20 mg/dL (1.7-2.3) 10/08/21 05:39 Medications & Allergies - Medications Allergies/Adverse Reactions: Allergies No Known Allergies Allergy (Verified 10/09/21 08:15) Home Medications: Home Medications Medication Instructions Recorded Confirmed Last Taken Type Albuterol Sulfate [Proair 90 mcg PO PRN 10/04/21 10/09/21 Unknown History Respiclick] Aspirin [Aspirin BABY CHEW TAB] 81 mg PO QDAY 10/04/21 10/09/21 Unknown History AtorvaSTATin [Lipitor] 40 mg PO QHS 10/04/21 10/09/21 Unknown History Gabapentin 300 mg PO TID 10/04/21 10/09/21 Unknown History Losartan [Cozaar] 25 mg PO QDAY 10/04/21 10/09/21 Unknown History Rivaroxaban [Xarelto] 20 mg PO DAILY 10/04/21 10/09/21 Unknown History Budesonide/Formoterol Fumarate 2 puff INHALATION BID 10/08/21 10/09/21 Unknown History [Symbicort 80-4.5 Mcg Inhaler] Metoprolol Xl [Metoprolol 300 mg PO QDAY 10/08/21 10/09/21 Unknown History SUCCINATE ER TAB] Oxycodone HCl/Acetaminophen 1 each PO Q8H PRN 10/08/21 10/09/21 Unknown History [Percocet 10/325 mg] Torsemide [Demadex] 100 mg PO QDAY 10/08/21 10/09/21 Unknown History traZODone [Desyrel] 50 mg PO QHS 10/08/21 10/09/21 Unknown History Amoxicillin [Trimox CAP] 500 mg PO Q8H 10/09/21 10/09/21 Unknown History Cholecalciferol (Vitamin D3) 50,000 unit PO QWEEK 10/09/21 10/09/21 Unknown History [Vitamin D3 50,000UNIT CAP] Cyanocobalamin (Vitamin B-12) 1,000 mcg PO QDAY 10/09/21 10/09/21 Unknown History [B-12] Naloxone HCl [Narcan Nasal [place]] 4 mg NS PRN PRN 10/09/21 10/09/21 Unknown History Omeprazole 10 mg PO QDAY 10/09/21 10/09/21 Unknown History Vancomycin/Water For Inj (Peg) 1 gm IV Q12H 10/09/21 10/09/21 Unknown History [Vancomycin 1 Gram/200 ml Bag] Active Medications: Generic Name Dose Route Start Last Admin Trade Name Freq PRN Reason Stop Dose Admin Acetaminophen 650 mg 10/04/21 20:23 Acetaminophen 325 Mg Tab PO Q4H PRN Pain MILD(1-3)/Fever >100.5/CURTIS Albuterol 2.5 mg 10/04/21 20:32 Albuterol 2.5 Mg/3 Ml Nebu IH Q4HRT PRN Shortness Of Breath Albuterol/Ipratropium 1 ampul 10/05/21 14:00 10/10/21 08:05 Ipratropium/Albuterol Sulfate 3 Ml Ampul.Neb IH 1 ampul Q6HRT MOOKIE Administration Aspirin 81 mg 10/04/21 21:00 10/09/21 11:50 Aspirin 81 Mg Tab Chew PO 81 mg QDAY MOOKIE Administration Atorvastatin Calcium 40 mg 10/04/21 22:00 10/09/21 21:35 Atorvastatin 40 Mg Tab PO 40 mg QHS MOOKIE Administration Budesonide 0.5 mg 10/05/21 20:00 10/10/21 08:05 Budesonide 0.5 Mg/2 Ml Nebu IH 0.5 mg Q12HRT MOOKIE Administration Furosemide 40 mg 10/06/21 13:00 10/10/21 02:22 Furosemide 40 Mg/4 Ml Inj IV 40 mg Q6H MOOKIE Administration Gabapentin 300 mg 10/04/21 22:00 10/09/21 21:35 Gabapentin 300 Mg Cap PO 300 mg BID MOOKIE Administration Hydromorphone HCl 0.5 mg 10/04/21 20:24 Hydromorphone 0.5 Mg/0.5 Ml Inj IV Q3H PRN Pain , Severe (7-10) Ferric Sodium Gluconate 110 mls @ 100 mls/hr 10/06/21 13:00 10/09/21 12:03 Complex 125 mg/ Sodium IV 10/13/21 11:05 100 mls/hr Chloride DAILY MOOKIE Administration Metoclopramide HCl 10 mg 10/04/21 20:24 Metoclopramide 10 Mg/2 Ml Inj IV Q6H PRN Nausea And Vomiting Metoprolol Succinate 200 mg 10/04/21 22:00 10/09/21 11:44 Metoprolol Succinate Xl 100 Mg Tab PO 200 mg QDAY MOOKIE Administration Morphine Sulfate 2 mg 10/04/21 20:24 10/07/21 06:48 Morphine 2 Mg/1 Ml Inj IV 2 mg Q4H PRN Administration Pain, Moderate (4-6) Ondansetron HCl 4 mg 10/04/21 20:23 Ondansetron 4 Mg/2 Ml Inj IV Q3H PRN Nausea And Vomiting Oxycodone/Acetaminophen 1 tab 10/04/21 20:24 10/10/21 02:13 Oxycodone /Acetaminophen 5-325mg Tab PO 1 tab Q6H PRN Administration Pain, Moderate (4-6) Prednisone 60 mg 10/10/21 12:00 Prednisone 20 Mg Tab PO 10/13/21 10:01 QDAY [facility] Prednisone 40 mg 10/14/21 10:00 Prednisone 20 Mg Tab PO 10/17/21 10:01 QDAY [facility] Prednisone 20 mg 10/18/21 10:00 Prednisone 20 Mg Tab PO 10/21/21 10:01 QDAY [facility] Prednisone 10 mg 10/22/21 10:00 Prednisone 10 Mg Tab PO 10/25/21 10:01 QDAY [facility] Rivaroxaban 20 mg 10/06/21 17:00 10/09/21 17:15 Rivaroxaban 20 Mg Tab PO 20 mg QPMDIAB M[place]IE Administration Protocol Sodium Chloride 10 ml 10/04/21 22:00 10/09/21 21:35 Sodium Chloride 0.9% 10 Ml Flush Syringe IV 10 ml BID MOOKIE Administration Sodium Chloride 10 ml 10/04/21 20:23 Sodium Chloride 0.9% 10 Ml Flush Syringe IV PRN PRN LINE FLUSH
[2021-10-10] MEDS: SODIUM FERRIC GLUCON/SUCRO 125 MG in SODIUM CHLORIDE 0.9% 100 ML IV SCH (13:27)
[2021-10-10] MEDS: METOPROLOL SUCCINATE XL 100 MG TAB PO SCH (13:28)
[2021-10-10] MEDS: ASPIRIN 81 MG TAB CHEW PO SCH (13:28)
[2021-10-10] MEDS: GABAPENTIN 300 MG CAP PO SCH ×2 (13:30→21:31)
[2021-10-10] MEDS: predniSONE 20 MG TAB PO SCH (13:34)
--- NOTE | 2021-10-10 14:05 | Progress Note ---
Assessment and Plan 60-year-old male who is morbidly obese with history of atrial fibrillation congestive heart failure, COPD with 2 L home oxygen use, hypertension and neuropathy comes in for acute shortness of breath and respiratory distress. 10/09/2021; cont diuresis. CT LE showed no osteo and venous doppler is negative. pending wound care evaluation. will also consult vascular and order arterial doppler study. 10/10: Continue aggressive diuresis, patient completed 5 days of Rocephin, will continue to cover for possible cellulitis. Wait for vascular recommendation, pending arterial Doppler study. Follow BMP. Assessment and plan; --Acute respiratory failure with hypoxia and hypercapnia Patient has chronic respiratory failure and and is on home oxygen of 2 L. acute respiratory failure with hypoxia and hypercarbia. His ABG significant for pH of 7.254 and bicarb and CO2 of 66.8 and PO2 of 87.6. Patient initiated oxygen titrate O2 sats to more than 90% , nebulizers , tapering dose of IV steroids , empiric IV antibiotics Pulmonary evaluation and recommendations noted and appreciated -- Acute exacerbation of chronic obstructive pulmonary disease (COPD) Oxygen titrate O2 sats more than 90%, home O2 evaluation at discharge Patient on IV antibiotics IV Solu-Medrol and duo nebs [id number] and Pulmicort. Wean as tolerated, physical therapy occupational therapy and rehabilitation Pulmonary following --Acute on chronic diastolic CHF (congestive heart failure) Patient initiated on Lasix and Aldactone. Echocardiogram LVEF 55 to 60% Cardiology following Daily weights and intake and output. -- Morbid obesity with BMI of 40.0-44.9, adult Patient needs to see the bariatric surgeon Patient will be given referral to Dr. Evans who is a bariatric surgeon in this hospital --Possible obstructive sleep apnea; With CPAP/BiPAP at night and as needed during daytime, Wean as tolerated Patient needs outpatient sleep study to rule out obstructive sleep apnea -- hypertension; Continue antihypertensives As needed medications -- History of atrial fibrillation Rate controlled, continue AV evans blocking agents Anticoagulation with Xarelto Medications reconciled --Anemia Hb 9,2 Anemia work-up requested Anemia of chronic disease, closely monitor --Bilateral lower extremity cellulitis with superficial blisters, ecchymosis bilateral lower extremity Consult wound care, supportive care -- DVT prophylaxis superficial blisters Patient is on Xarelto, SCDs --Advance care planning Disease education conducted, care plan discussed, diagnosis discussed, prognosis discussed. Patient is full code. Treatment plan , discharge planning discussed patient acknowledged understanding and agreement with care plan. +30 minutes. Strongly counseled the importance of adhering to treatment plan Subjective Date of service: 10/10/21 Principal diagnosis: COPD, acute on chronic HFmrEF Interval history: Have seen and examined the patient at the bedside Patient's chart and medications reviewed Worsening leg edema Vital signs reviewed Objective - Exam Narrative Exam: General appearance: Present: no acute distress, well-nourished, obese (Morbidly obese), other (On BiPAP on admission now on nasal cannula oxygen) - EENT Eyes: Present: PERRL, EOM intact - Neck Neck: Present: supple, normal ROM - Respiratory Respiratory effort: normal Respiratory: bilateral: diminished, negative: rales, rhonchi, wheezing - Cardiovascular Rhythm: regular Heart Sounds: Present: S1 & S2 - Extremities Extremities: abnormal (Bilateral lower extremity cellulitis and edema, left more than right) Extremity abnormal: edema, erythema, other (Left great toe wound) - Abdominal General gastrointestinal: soft, non-tender, non-distended, normal bowel sounds - Integumentary Integumentary: Present: clear, warm - Psychiatric Psychiatric: appropriate mood/affect, cooperative - Neurologic Neurologic: moves all extremities - Constitutional Vitals: Vital Signs - 12hr 10/10/21 10/10/21 10/10/21 02:20 02:30 02:35 Temperature Pulse Rate 91 H 107 H Pulse Rate [ 108 H Bilateral Throughout] Respiratory 24 Rate Respiratory 20 Rate [Bilateral Throughout] Blood Pressure Blood Pressure 148/87 [Left] O2 Sat by Pulse 92 95 Oximetry 10/10/21 10/10/21 10/10/21 06:30 07:44 08:05 Temperature 98.3 F Pulse Rate 109 H Pulse Rate [ Bilateral Throughout] Respiratory 18 Rate Respiratory Rate [Bilateral Throughout] Blood Pressure 131/79 Blood Pressure [Left] O2 Sat by Pulse 94 95 94 Oximetry 10/10/21 10/10/21 08:26 13:28 Temperature Pulse Rate 112 H Pulse Rate [ 97 H Bilateral Throughout] Respiratory Rate Respiratory 20 Rate [Bilateral Throughout] Blood Pressure Blood Pressure [Left] O2 Sat by Pulse Oximetry - Labs CBC & Chem 7: 10/10/21 04:56 10/10/21 04:56 Labs: Abnormal lab results 10/10/21 10/10/21 10/10/21 Range/Units 04:56 04:56 07:40 WBC 12.9 H (4.5-11.0) K/mm3 Hgb 11.0 L (11.8-15.2) gm/dl MCHC 31 L (32-34) % RDW 17.8 H (13.2-15.2) % Chloride 97.2 L (98-107) mmol/L BUN 81 H (9-20) mg/dL Creatinine 1.5 H (0.8-1.3) mg/dL Glucose 138 H (75-100) mg/dL POC Glucose 159 H (70-105) mg/dL 10/10/21 Range/Units 11:39 WBC (4.5-11.0) K/mm3 Hgb (11.8-15.2) gm/dl MCHC (32-34) % RDW (13.2-15.2) % Chloride (98-107) mmol/L BUN (9-20) mg/dL Creatinine (0.8-1.3) mg/dL Glucose (75-100) mg/dL POC Glucose 129 H (70-105) mg/dL HEART Score - HEART Score Risk factors: > 3 risk factors or hx of atherosclerotic disease Troponin: Troponin T 0.026 ng/mL (0.00-0.029) 10/04/21 21:06 Troponin: 1-3x normal limit - Critical Actions Critical Actions: 4-6 pts:12-16.6% risk of adverse cardiac event. Should be admitted
[2021-10-10] MEDS ORDERED: cefTRIAXone/NS 1 GM/50 ML 1 GM/50 ML BAG IV SCH (15:00)
--- NOTE | 2021-10-10 17:25 | Vascular Lab Report ---
DUPLEX DOPPLER LOWER EXTREMITY ARTERIAL, BILATERAL INDICATION / CLINICAL INFORMATION: PVD. TECHNIQUE: Arterial duplex examination of both lower extremities performed using B-mode, color flow a nd spectral Doppler assessment. FINDINGS: RIGHT: Common Femoral Artery: PSV 106 cm/sec. Triphasic waveform. Proximal SFA: PSV 84 cm/sec. Triphasic waveform. Mid SFA: PSV 76 cm/sec. Triphasic waveform. Distal SFA: PSV 55 cm/sec. Triphasic waveform. Popliteal Artery: PSV 70 cm/sec. Triphasic waveform. Posterior Tibial Artery: PSV 35 cm/sec. Biphasic waveform. Dorsalis Pedis Artery: PSV 52 cm/sec. Biphasic waveform. LEFT: Common Femoral Artery: PSV 84 cm/sec. Triphasic waveform. Proximal SFA: PSV 93 cm/sec. Triphasic waveform. Mid SFA: PSV 100 cm/sec. Triphasic waveform. Distal SFA: PSV 82 cm/sec. Triphasic waveform. Popliteal Artery: PSV 53 cm/sec. Triphasic waveform. Posterior Tibial Artery: PSV 47 cm/sec. Biphasic waveform. Dorsalis Pedis Artery: PSV 10 cm/sec. Monophasic waveform. ADDITIONAL FINDINGS: None. RIGHT LUIS: Not calculated. LEFT LUIS: Not calculated. IMPRESSION: 1. Multifocal atherosclerotic disease is present throughout both lower extremities. 2. There is transition to biphasic waveforms bilaterally with monophasic waveform noted in the left d orsalis pedis artery suggesting crural artery disease. Ankle-Brachial Index (LUIS): - Calcified arteries > 1.4 - Normal = 0.9-1.4 - Mild PAD = 0.7-0.89 - Moderate PAD = 0.51-0.69 - Severe PAD < 0.5 Doppler Waveform: - Triphasic is normal. - Biphasic is abnormal if clear transition from triphasic signal along vascular tree. - Monophasic is abnormal. Scribed by: Dara Rain RDMS, RVT, RMSKS Scribed: 10/10/2021 4:09 PM I have reviewed the images, agree with this report, and edited this report as needed. Signer Name: Robert Noland MD Signed: 10/10/2021 5:20 PM Workstation Name: [id number]
[2021-10-10] MEDS: RIVAROXABAN 20 MG TAB PO SCH (18:23)
[2021-10-10] MEDS: metOLazone 2.5 MG TAB PO SCH (21:31)
[2021-10-10] MEDS ORDERED: DOCUSATE SODIUM 100 MG CAP PO ONE (22:44)
[2021-10-11] MEDS: IPRATROPIUM/ALBUTEROL SULFATE 3 ML AMPUL.NEB IH SCH ×4 (03:47→20:25)
[2021-10-11 05:47] LABS: Calcium 8.6 mg/dL (8.4-10.2)
[2021-10-11] MEDS: BUDESONIDE 0.5 MG/2 ML NEBU IH SCH ×2 (08:12→20:25)
--- NOTE | 2021-10-11 10:18 | Progress Note ---
Assessment and Plan Assessment: Acute Kidney injury, Unknown CKD Hyperkalemia Acute hypoxic respiratory failure Acute CHF Hypertension Obesity Anemia Afib Plan: -Renal labs reviewed. Serum creatinine 1.3 today, yesterday's was 1.5, stable, UOP 2600 ml -No baseline serum creatinine available so unknown if has CKD or not -Renal US was negative for hydronephrosis -CXR congested, has 3+ leg edema, diuresing on Lasix 40 mg IV every 6 hours. Added Metolazone 2.5 mg po BID to be given 1 hour before Lasix. -Was on Torsemide 100 mg po daily at home, will likely resume this upon discharge along with Metolazone -Low Iron of 16- on Ferric Gluconate 125 mcg@ 100 ml/he x 8 doses, currently on bag 6 of 8 -PTH 109.2, suggestive of CKD -Renally dose all medications -Avoid Nephrotoxic agents -Strict I/O's daily- intake 610 ml, UOP 2600 ml (-1990 ml) -Continue to monitor renal function closely -Plan of care reviewed by Dr. Aguilar Subjective Date of service: 10/11/21 Principal diagnosis: COPD, acute on chronic HFmrEF Interval history: Patient seen sitting at edge of bed. Reviewed renal labs. Objective - Vital Signs Vital signs: Vital Signs - 12hr 10/11/21 10/11/21 10/11/21 00:42 04:17 05:00 Temperature Pulse Rate 100 H 110 H Pulse Rate [ Bilateral Throughout] Respiratory 22 14 Rate Respiratory Rate [Bilateral Throughout] Blood Pressure O2 Sat by Pulse 95 98 Oximetry 10/11/21 10/11/21 10/11/21 05:37 07:31 08:12 Temperature 97.4 F L Pulse Rate 109 H Pulse Rate [ 115 H Bilateral Throughout] Respiratory 18 Rate Respiratory 18 Rate [Bilateral Throughout] Blood Pressure 144/89 155/91 O2 Sat by Pulse 97 98 Oximetry - General Appearance General appearance: well-developed, obese EENT: ATNC, PERRL, hearing intact, vision intact Neck: no JVD, supple Respiratory: Present: Decreased Breath Sounds Cardiology: S1S2 Gastrointestinal: normoactive bowel sounds, obese Integumentary: warm and dry, erythema, skin tear, chronic venous stasis Neurologic: alert and oriented x3 Musculoskeletal: joint swelling, other (2-3+ edema to BLE) - Lab 10/10/21 04:56 10/11/21 04:27 Most recent lab results ABG pH 7.260 pH Units (7.350-7.450) L 10/04/21 16:30 ABG pCO2 67.7 mm Hg 10/04/21 16:30 ABG pO2 97.1 mm Hg (80.0-90.0) H 10/04/21 16:30 ABG HCO3 29.7 mmol/L (20.0-26.0) H 10/04/21 16:30 ABG O2 Saturation 96.8 % (95.0-99.0) 10/04/21 16:30 Calcium 8.6 mg/dL (8.4-10.2) 10/11/21 04:27 Magnesium 2.20 mg/dL (1.7-2.3) 10/08/21 05:39 Medications & Allergies - Medications Allergies/Adverse Reactions: Allergies No Known Allergies Allergy (Verified 10/09/21 08:15) Home Medications: Home Medications Medication Instructions Recorded Confirmed Last Taken Type Albuterol Sulfate [Proair 90 mcg PO PRN 10/04/21 10/09/21 Unknown History Respiclick] Aspirin [Aspirin BABY CHEW TAB] 81 mg PO QDAY 10/04/21 10/09/21 Unknown History AtorvaSTATin [Lipitor] 40 mg PO QHS 10/04/21 10/09/21 Unknown History Gabapentin 300 mg PO TID 10/04/21 10/09/21 Unknown History Losartan [Cozaar] 25 mg PO QDAY 10/04/21 10/09/21 Unknown History Rivaroxaban [Xarelto] 20 mg PO DAILY 10/04/21 10/09/21 Unknown History Budesonide/Formoterol Fumarate 2 puff INHALATION BID 10/08/21 10/09/21 Unknown History [Symbicort 80-4.5 Mcg Inhaler] Metoprolol Xl [Metoprolol 300 mg PO QDAY 10/08/21 10/09/21 Unknown History SUCCINATE ER TAB] Oxycodone HCl/Acetaminophen 1 each PO Q8H PRN 10/08/21 10/09/21 Unknown History [Percocet 10/325 mg] Torsemide [Demadex] 100 mg PO QDAY 10/08/21 10/09/21 Unknown History traZODone [Desyrel] 50 mg PO QHS 10/08/21 10/09/21 Unknown History Amoxicillin [Trimox CAP] 500 mg PO Q8H 10/09/21 10/09/21 Unknown History Cholecalciferol (Vitamin D3) 50,000 unit PO QWEEK 10/09/21 10/09/21 Unknown History [Vitamin D3 50,000UNIT CAP] Cyanocobalamin (Vitamin B-12) 1,000 mcg PO QDAY 10/09/21 10/09/21 Unknown History [B-12] Naloxone HCl [Narcan Nasal [place]] 4 mg NS PRN PRN 10/09/21 10/09/21 Unknown History Omeprazole 10 mg PO QDAY 10/09/21 10/09/21 Unknown History Vancomycin/Water For Inj (Peg) 1 gm IV Q12H 10/09/21 10/09/21 Unknown History [Vancomycin 1 Gram/200 ml Bag] Active Medications: Generic Name Dose Route Start Last Admin Trade Name Freq PRN Reason Stop Dose Admin Acetaminophen 650 mg 10/04/21 20:23 Acetaminophen 325 Mg Tab PO Q4H PRN Pain MILD(1-3)/Fever >100.5/CURTIS Albuterol 2.5 mg 10/04/21 20:32 Albuterol 2.5 Mg/3 Ml Nebu IH Q4HRT PRN Shortness Of Breath Albuterol/Ipratropium 1 ampul 10/05/21 14:00 10/11/21 08:12 Ipratropium/Albuterol Sulfate 3 Ml Ampul.Neb IH 1 ampul Q6HRT MOOKIE Administration Aspirin 81 mg 10/04/21 21:00 10/10/21 13:28 Aspirin 81 Mg Tab Chew PO 81 mg QDAY MOOKIE Administration Atorvastatin Calcium 40 mg 10/04/21 22:00 10/10/21 21:31 Atorvastatin 40 Mg Tab PO 40 mg QHS MOOKIE Administration Budesonide 0.5 mg 10/05/21 20:00 10/11/21 08:12 Budesonide 0.5 Mg/2 Ml Nebu IH 0.5 mg Q12HRT MOOKIE Administration Furosemide 40 mg 10/06/21 13:00 10/10/21 18:24 Furosemide 40 Mg/4 Ml Inj IV 40 mg Q6H MOOKIE Administration Gabapentin 300 mg 10/04/21 22:00 10/10/21 21:31 Gabapentin 300 Mg Cap PO 300 mg BID MOOKIE Administration Hydromorphone HCl 0.5 mg 10/04/21 20:24 Hydromorphone 0.5 Mg/0.5 Ml Inj IV Q3H PRN Pain , Severe (7-10) Ferric Sodium Gluconate 110 mls @ 100 mls/hr 10/06/21 13:00 10/10/21 13:27 Complex 125 mg/ Sodium IV 10/13/21 11:05 100 mls/hr Chloride DAILY MOOKIE Administration Ceftriaxone Sodium 1 gm in 50 mls @ 100 mls/hr 10/10/21 15:00 10/10/21 18:22 Rocephin/Ns 1 Gm/50 Ml IV 100 mls/hr Q24H MOOKIE Administration Protocol Metoclopramide HCl 10 mg 10/04/21 20:24 Metoclopramide 10 Mg/2 Ml Inj IV Q6H PRN Nausea And Vomiting Metolazone 2.5 mg 10/10/21 22:00 10/10/21 21:31 Metolazone 2.5 Mg Tab PO 2.5 mg BID MOOKIE Administration Metoprolol Succinate 200 mg 10/04/21 22:00 10/10/21 13:28 Metoprolol Succinate Xl 100 Mg Tab PO 200 mg QDAY MOOKIE Administration Morphine Sulfate 2 mg 10/04/21 20:24 10/07/21 06:48 Morphine 2 Mg/1 Ml Inj IV 2 mg Q4H PRN Administration Pain, Moderate (4-6) Ondansetron HCl 4 mg 10/04/21 20:23 Ondansetron 4 Mg/2 Ml Inj IV Q3H PRN Nausea And Vomiting Oxycodone/Acetaminophen 1 tab 10/04/21 20:24 10/10/21 21:30 Oxycodone /Acetaminophen 5-325mg Tab PO 1 tab Q6H PRN Administration Pain, Moderate (4-6) Prednisone 60 mg 10/10/21 12:00 10/10/21 13:34 Prednisone 20 Mg Tab PO 10/13/21 10:01 60 mg QDAY MOOKIE Administration Prednisone 40 mg 10/14/21 10:00 Prednisone 20 Mg Tab PO 10/17/21 10:01 QDAY MOOKIE Prednisone 20 mg 10/18/21 10:00 Prednisone 20 Mg Tab PO 10/21/21 10:01 QDAY M[place] Prednisone 10 mg 10/22/21 10:00 Prednisone 10 Mg Tab PO 10/25/21 10:01 QDAY M[facility] Rivaroxaban 20 mg 10/06/21 17:00 10/10/21 18:23 Rivaroxaban 20 Mg Tab PO 20 mg QPMDIAB [place] Administration Protocol Sodium Chloride 10 ml 10/04/21 22:00 10/10/21 21:33 Sodium Chloride 0.9% 10 Ml Flush Syringe IV 10 ml BID MOOKIE Administration Sodium Chloride 10 ml 10/04/21 20:23 Sodium Chloride 0.9% 10 Ml Flush Syringe IV PRN PRN LINE FLUSH
[2021-10-11] MEDS: ASPIRIN 81 MG TAB CHEW PO SCH (10:19)
[2021-10-11] MEDS: FUROSEMIDE 40 MG/4 ML INJ IV SCH ×3 (10:19→18:21)
[2021-10-11] MEDS: predniSONE 20 MG TAB PO SCH (10:20)
[2021-10-11] MEDS: GABAPENTIN 300 MG CAP PO SCH ×2 (10:20→22:21)
[2021-10-11] MEDS: METOPROLOL SUCCINATE XL 100 MG TAB PO SCH (10:20)
[2021-10-11] MEDS: metOLazone 2.5 MG TAB PO SCH ×2 (10:20→22:20)
[2021-10-11] MEDS: MORPHINE 2 MG/1 ML INJ IV PRN (10:23)
[2021-10-11] MEDS: SODIUM FERRIC GLUCON/SUCRO 125 MG in SODIUM CHLORIDE 0.9% 100 ML IV SCH (10:32)
--- NOTE | 2021-10-11 10:47 | Progress Note ---
Assessment and Plan Pt is a 60-year-old male with a hx of COPD (on 3L home O2), CHF, morbid obesity/SUNIL, tobacco abuse, and EtOH abuse who presented in respiratory distress requiring BiPAP. Of note, pt has a hx of COVID-19 PNA as well in May 2020 requiring a prolonged ICU stay and trach in the setting of ongoing hypoxic respiratory failure. Pt is previously unknown to our practice. Acute on Chronic Respiratory Failure (on 3L home O2 per pt report) COPD ?Exacerbation Acute on Chronic HFpEF Cardiomyopathy (EF 45-50% in 2020, no ischemic workup on file, pt denies hx of ME/CAD/stents) REECE / ?CKD Anemia Permanent AF (s/p SERGIO in 2017, on Xarelto) HTN DM2 Morbid Obesity SUNIL H/o COVID-19 PNA (05/2020-06/2020, requiring a prolonged ICU admission & tracheostomy) Tobacco Abuse EtOH Abuse (drinks 1/5 pint liquor per day) Sacral Ulcer Medical Non-Compliance Echocardiogram 10/04/2021: Left ventricule is normal size. Overall LV systolic function appears normal. Mild concentric left ventricular hypertrophy. Cannot assess regional wall motion abnormalities. Unable to assess. LVEF is 55 to 60%. Technically limited study due to body habitus Plan: Anticoagulated on Xarelto Patient currently on IV Lasix 40mg q6h and metolazone per Nephro. Will defer volume management to nephrology due to renal function Continue IV diuresis with strict I/Os and close monitoring of renal indices & electrolytes Continue BB, statin, bAsa; Aldactone & Losartan held in light of renal fxn. Wound care has been followed for LLE wound Patient wearing monitor now A. fib rate trending 100s to 110s suspect due to volume overload and possible infected leg wound Continue present management Will see as needed over the weekend Pt seen in conjunction with Dr. Go who agrees with the assessment and plan of care. - Patient Problems (1) Acute exacerbation of chronic obstructive pulmonary disease (COPD) Current Visit: Yes Status: Acute (2) Acute respiratory failure with hypoxia and hypercapnia Current Visit: Yes Status: Acute (3) Bilateral lower leg cellulitis Current Visit: Yes Status: Acute (4) Chronic atrial fibrillation Current Visit: Yes Status: Acute (5) Pulmonary edema Current Visit: Yes Status: Acute (6) Renal insufficiency Current Visit: Yes Status: Acute (7) Morbid obesity with BMI of 40.0-44.9, adult Current Visit: Yes Status: Chronic Subjective Date of service: 10/11/21 Principal diagnosis: COPD, acute on chronic HFmrEF Interval history: Patient sitting on side of the bed. Patient denies any cardiac complaints. Patient reports to continue to have good urine output Patient A. fib rate trending 100s to low 110s Objective Vital Signs Temp Pulse Pulse Resp Resp BP Pulse Ox 10/11/21 08:12 115 H 18 98 10/11/21 07:31 97.4 F L 109 H 18 155/91 97 10/11/21 05:37 144/89 10/11/21 05:00 14 98 10/11/21 04:17 110 H 10/11/21 00:42 100 H 22 95 10/10/21 22:00 95 10/10/21 20:00 130 H 94 H 20 10/10/21 19:48 97.7 F 105 H 22 121/67 95 10/10/21 17:00 96 10/10/21 15:36 97.8 F 73 18 145/89 94 10/10/21 14:10 102 H 20 10/10/21 13:28 112 H 10/10/21 12:00 114 H - Physical Examination General: No Apparent Distress HEENT: Positive: EOMI, Normocephaly Neck: Positive: neck supple Cardiac: Positive: irregularly irregular Lungs: Positive: Decreased Breath Sounds Neuro: Positive: Grossly Intact Abdomen: Positive: Soft Skin: Positive: Wound (sacral, left knee, left lateral calf ), Moist Extremities: Present: +4 Edema, Ulceration Noted (BLE blistering), warm, Other (venous stasis changes) - Labs and Meds Comprehensive Metabolic Panel 10/11/21 Range/Units 04:27 Sodium 141 (137-145) mmol/L Potassium 4.3 (3.6-5.0) mmol/L Chloride 99.7 (98-107) mmol/L Carbon Dioxide 30 (22-30) mmol/L BUN 69 H (9-20) mg/dL Creatinine 1.3 (0.8-1.3) mg/dL Glucose 131 H (75-100) mg/dL Calcium 8.6 (8.4-10.2) mg/dL - Imaging and Cardiology EKG: report reviewed, image reviewed Echo: report reviewed (06/09/2020: EF 45-50%, mildly dilated LA, mild AI, trace MR) - Telemetry EKG Rhythm: Atrial Fibrillation - EKG Supraventricular dysrhythmia: atrial fibrillation - Allied health notes Allied health notes reviewed: nursing
--- NOTE | 2021-10-11 12:52 | Progress Note ---
Assessment and Plan 60-year-old male who is morbidly obese with history of atrial fibrillation congestive heart failure, COPD with 2 L home oxygen use, hypertension and neuropathy comes in for acute shortness of breath and respiratory distress. 10/09/2021; cont diuresis. CT LE showed no osteo and venous doppler is negative. pending wound care evaluation. will also consult vascular and order arterial doppler study. 10/10: Continue aggressive diuresis, patient completed 5 days of Rocephin, will continue to cover for possible cellulitis. Wait for vascular recommendation, pending arterial Doppler study. Follow BMP. 10/11: Wait for vascular surgery recommendation, arterial Doppler suggestive for extensive atherosclerotic disease. Renal function stable and improved. Continue to follow clinically, Assessment and plan; --Acute respiratory failure with hypoxia and hypercapnia Patient has chronic respiratory failure and and is on home oxygen of 2 L. acute respiratory failure with hypoxia and hypercarbia. His ABG significant for pH of 7.254 and bicarb and CO2 of 66.8 and PO2 of 87.6. Patient initiated oxygen titrate O2 sats to more than 90% , nebulizers , tapering dose of IV steroids , empiric IV antibiotics Pulmonary evaluation and recommendations noted and appreciated -- Acute exacerbation of chronic obstructive pulmonary disease (COPD) Oxygen titrate O2 sats more than 90%, home O2 evaluation at discharge Patient on IV antibiotics IV Solu-Medrol and duo nebs [id number] and Pulmicort. Wean as tolerated, physical therapy occupational therapy and rehabilitation Pulmonary following --Acute on chronic diastolic CHF (congestive heart failure) Patient initiated on Lasix and Aldactone. Echocardiogram LVEF 55 to 60% Cardiology following Daily weights and intake and output. -- Morbid obesity with BMI of 40.0-44.9, adult Patient needs to see the bariatric surgeon Patient will be given referral to Dr. Evans who is a bariatric surgeon in this hospital --Possible obstructive sleep apnea; With CPAP/BiPAP at night and as needed during daytime, Wean as tolerated Patient needs outpatient sleep study to rule out obstructive sleep apnea -- hypertension; Continue antihypertensives As needed medications -- History of atrial fibrillation Rate controlled, continue AV evans blocking agents Anticoagulation with Xarelto Medications reconciled --Anemia Hb 9,2 Anemia work-up requested Anemia of chronic disease, closely monitor --Bilateral lower extremity cellulitis with superficial blisters, ecchymosis bilateral lower extremity Consult wound care, supportive care -- DVT prophylaxis superficial blisters Patient is on Xarelto, SCDs --Advance care planning Disease education conducted, care plan discussed, diagnosis discussed, prognosis discussed. Patient is full code. Treatment plan , discharge planning discussed patient acknowledged understanding and agreement with care plan. +30 minutes. Strongly counseled the importance of adhering to treatment plan Subjective Date of service: 10/11/21 Principal diagnosis: COPD, acute on chronic HFmrEF Interval history: Have seen and examined the patient at the bedside Patient's chart and medications reviewed Stable leg edema Vital signs reviewed Objective - Exam Narrative Exam: General appearance: Present: no acute distress, well-nourished, obese (Morbidly obese), other (On BiPAP on admission now on nasal cannula oxygen) - EENT Eyes: Present: PERRL, EOM intact - Neck Neck: Present: supple, normal ROM - Respiratory Respiratory effort: normal Respiratory: bilateral: diminished, negative: rales, rhonchi, wheezing - Cardiovascular Rhythm: regular Heart Sounds: Present: S1 & S2 - Extremities Extremities: abnormal (Bilateral lower extremity cellulitis and edema, left more than right) Extremity abnormal: edema, erythema, other (Left great toe wound) bilateral lower extremity dressing - Abdominal General gastrointestinal: soft, non-tender, non-distended, normal bowel sounds - Integumentary Integumentary: Present: clear, warm - Psychiatric Psychiatric: appropriate mood/affect, cooperative - Neurologic Neurologic: moves all extremities - Constitutional Vitals: Vital Signs - 12hr 10/11/21 10/11/21 10/11/21 04:17 05:00 05:37 Temperature Pulse Rate 110 H Pulse Rate [ Bilateral Throughout] Respiratory 14 Rate Respiratory Rate [Bilateral Throughout] Blood Pressure 144/89 O2 Sat by Pulse 98 Oximetry 10/11/21 10/11/21 07:31 08:12 Temperature 97.4 F L Pulse Rate 109 H Pulse Rate [ 115 H Bilateral Throughout] Respiratory 18 Rate Respiratory 18 Rate [Bilateral Throughout] Blood Pressure 155/91 O2 Sat by Pulse 97 98 Oximetry - Labs CBC & Chem 7: 10/10/21 04:56 10/11/21 04:27 Labs: Abnormal lab results 10/10/21 10/11/21 Range/Units 15:34 04:27 BUN 69 H (9-20) mg/dL Glucose 131 H (75-100) mg/dL POC Glucose 137 H (70-105) mg/dL HEART Score - HEART Score Risk factors: > 3 risk factors or hx of atherosclerotic disease Troponin: Troponin T 0.026 ng/mL (0.00-0.029) 10/04/21 21:06 Troponin: 1-3x normal limit - Critical Actions Critical Actions: 4-6 pts:12-16.6% risk of adverse cardiac event. Should be admitted
[2021-10-11] MEDS: oxyCODONE /ACETAMINOPHEN 5-325MG TAB PO PRN ×2 (14:23→22:21)
[2021-10-11] MEDS: cefTRIAXone/NS 2 GM/100 ML 2 GM/100 ML BAG IV SCH (14:23)
--- NOTE | 2021-10-11 16:48 | Consultation ---
History of Present Illness - Reason for Consult Consult date: 10/11/21 Bilateral Lower Extremity Cellulitis Requesting physician: RADHA NGUYEN - History of Present Illness The patient is a 60-year-old male with a history of oxygen dependent COPD, CHF, morbid obesity, alcohol abuse, venous insufficiency with venous ulcers that are currently being managed at [facility]. He states approximately 3 weeks ago he underwent a procedure that he believes with skin grafting however he is unsure who performed the procedure. He also has been getting antibiotics at home through a PICC line. He presented here to the emergency department with complaints of shortness of breath as well as constant drainage from his lower extremity wounds. He has no additional complaints at this time. Past History Past Medical History: atrial fib, COPD, diabetes, heart failure, hypertension, hyperlipidemia, other (SUNIL) Past Surgical History: Other (ablation). denies: CABG, PTCA Social history: smoking (cigars), alcohol abuse (1/5 pint liquor daily) Family history: CAD, diabetes, hypertension Medications and Allergies Allergies Allergy/AdvReac Type Severity Reaction Status Date / Time No Known Allergies Allergy Verified 10/09/21 08:15 Home Medications Medication Instructions Recorded Confirmed Last Taken Type Albuterol Sulfate [Proair 90 mcg PO PRN 10/04/21 10/09/21 Unknown History Respiclick] Aspirin [Aspirin BABY CHEW TAB] 81 mg PO QDAY 10/04/21 10/09/21 Unknown History AtorvaSTATin [Lipitor] 40 mg PO QHS 10/04/21 10/09/21 Unknown History Gabapentin 300 mg PO TID 10/04/21 10/09/21 Unknown History Losartan [Cozaar] 25 mg PO QDAY 10/04/21 10/09/21 Unknown History Rivaroxaban [Xarelto] 20 mg PO DAILY 10/04/21 10/09/21 Unknown History Budesonide/Formoterol Fumarate 2 puff INHALATION BID 10/08/21 10/09/21 Unknown History [Symbicort 80-4.5 Mcg Inhaler] Metoprolol Xl [Metoprolol 300 mg PO QDAY 10/08/21 10/09/21 Unknown History SUCCINATE ER TAB] Oxycodone HCl/Acetaminophen 1 each PO Q8H PRN 10/08/21 10/09/21 Unknown History [Percocet 10/325 mg] Torsemide [Demadex] 100 mg PO QDAY 10/08/21 10/09/21 Unknown History traZODone [Desyrel] 50 mg PO QHS 10/08/21 10/09/21 Unknown History Amoxicillin [Trimox CAP] 500 mg PO Q8H 10/09/21 10/09/21 Unknown History Cholecalciferol (Vitamin D3) 50,000 unit PO QWEEK 10/09/21 10/09/21 Unknown History [Vitamin D3 50,000UNIT CAP] Cyanocobalamin (Vitamin B-12) 1,000 mcg PO QDAY 10/09/21 10/09/21 Unknown History [B-12] Naloxone HCl [Narcan Nasal [place]] 4 mg NS PRN PRN 10/09/21 10/09/21 Unknown History Omeprazole 10 mg PO QDAY 10/09/21 10/09/21 Unknown History Vancomycin/Water For Inj (Peg) 1 gm IV Q12H 10/09/21 10/09/21 Unknown History [Vancomycin 1 Gram/200 ml Bag] Active Meds: Active Medications Acetaminophen (Acetaminophen 325 Mg Tab) 650 mg PO Q4H PRN PRN Reason: Pain MILD(1-3)/Fever >100.5/CURTIS Albuterol (Albuterol 2.5 Mg/3 Ml Nebu) 2.5 mg IH Q4HRT PRN PRN Reason: Shortness Of Breath Albuterol/Ipratropium (Ipratropium/Albuterol Sulfate 3 Ml Ampul.Neb) 1 ampul IH Q6HRT [facility] Last Admin: 10/11/21 14:15 Dose: 1 ampul Aspirin (Aspirin 81 Mg Tab Chew) 81 mg PO QDAY [facility] Last Admin: 10/11/21 10:19 Dose: 81 mg Atorvastatin Calcium (Atorvastatin 40 Mg Tab) 40 mg PO QHS [facility] Last Admin: 10/10/21 21:31 Dose: 40 mg Budesonide (Budesonide 0.5 Mg/2 Ml Nebu) 0.5 mg IH Q12HRT [facility] Last Admin: 10/11/21 08:12 Dose: 0.5 mg Furosemide (Furosemide 40 Mg/4 Ml Inj) 40 mg IV Q6H [facility] Last Admin: 10/11/21 14:22 Dose: 40 mg Gabapentin (Gabapentin 300 Mg Cap) 300 mg PO BID [facility] Last Admin: 10/11/21 10:20 Dose: 300 mg Hydromorphone HCl (Hydromorphone 0.5 Mg/0.5 Ml Inj) 0.5 mg IV Q3H PRN PRN Reason: Pain , Severe (7-10) Ferric Sodium Gluconate Complex 125 mg/ Sodium Chloride 110 mls @ 100 mls/hr IV DAILY [facility] Stop: 10/13/21 11:05 Last Admin: 10/11/21 10:32 Dose: 100 mls/hr Ceftriaxone Sodium (Rocephin/Ns 2 Gm/100 Ml) 2 gm in 100 mls @ 200 mls/hr IV Q24H [facility] Last Admin: 10/11/21 14:23 Dose: 200 mls/hr Metoclopramide HCl (Metoclopramide 10 Mg/2 Ml Inj) 10 mg IV Q6H PRN PRN Reason: Nausea And Vomiting Metolazone (Metolazone 2.5 Mg Tab) 2.5 mg PO BID [facility] Last Admin: 10/11/21 10:20 Dose: 2.5 mg Metoprolol Succinate (Metoprolol Succinate Xl 100 Mg Tab) 200 mg PO QDAY [facility] Last Admin: 10/11/21 10:20 Dose: 200 mg Morphine Sulfate (Morphine 2 Mg/1 Ml Inj) 2 mg IV Q4H PRN PRN Reason: Pain, Moderate (4-6) Last Admin: 10/11/21 10:23 Dose: 2 mg Ondansetron HCl (Ondansetron 4 Mg/2 Ml Inj) 4 mg IV Q3H PRN PRN Reason: Nausea And Vomiting Oxycodone/Acetaminophen (Oxycodone /Acetaminophen 5-325mg Tab) 1 tab PO Q6H PRN PRN Reason: Pain, Moderate (4-6) Last Admin: 10/11/21 14:23 Dose: 1 tab Prednisone (Prednisone 20 Mg Tab) 60 mg PO QDAY [facility] Stop: 10/13/21 10:01 Last Admin: 10/11/21 10:20 Dose: 60 mg Prednisone (Prednisone 20 Mg Tab) 40 mg PO QDAY [facility] Stop: 10/17/21 10:01 Prednisone (Prednisone 20 Mg Tab) 20 mg PO QDAY [facility] Stop: 10/21/21 10:01 Prednisone (Prednisone 10 Mg Tab) 10 mg PO QDAY [facility] Stop: 10/25/21 10:01 Rivaroxaban (Rivaroxaban 20 Mg Tab) 20 mg PO QPMDIAB [facility]; Protocol Last Admin: 10/10/21 18:23 Dose: 20 mg Sodium Chloride (Sodium Chloride 0.9% 10 Ml Flush Syringe) 10 ml IV BID [facility] Last Admin: 10/11/21 10:24 Dose: 10 ml Sodium Chloride (Sodium Chloride 0.9% 10 Ml Flush Syringe) 10 ml IV PRN PRN PRN Reason: LINE FLUSH Last Admin: 10/11/21 14:23 Dose: 10 ml Review of Systems All systems: negative Exam - Constitutional Vitals: Temp Pulse Resp BP Pulse Ox 97.4 F L 92 H 18 116/89 96 10/11/21 12:26 10/11/21 14:15 10/11/21 14:15 10/11/21 12:10/11/21 12:26 General appearance: Present: no acute distress, other (Sitting up with his legs hanging down) - Respiratory Respiratory effort: normal - Extremities Extremity abnormal: edema (Pitting edema of bilateral lower extremities), ulceration (Ulcerations on the toes without purulent drainage however there is serous drainage from the legs), erythema (Erythema of bilateral lower extremities), other (Patient has evidence of what appears to be a wound matrix applied to the lateral aspect of the left leg) - Abdominal Male genitourinary: Present: deferred - Rectal Rectal Exam: deferred Results - Labs CBC & Chem 7: 10/10/21 04:56 10/11/21 04:27 Labs: Abnormal lab results 10/11/21 Range/Units 04:27 BUN 69 H (9-20) mg/dL Glucose 131 H (75-100) mg/dL Assessment and Plan The patient is a 60-year-old male with a history of chronic venous insufficiency and chronic venous ulcers that are managed at [facility]. He recently underwent placement of wound matrix to multiple areas on his left leg to help heal his ulcerations. Given his extensive history and previous management there he shoul d continue to follow-up with them for his care.
[2021-10-11] MEDS: RIVAROXABAN 20 MG TAB PO SCH (18:21)
[2021-10-12] MEDS: FUROSEMIDE 40 MG/4 ML INJ IV SCH ×5 (00:12→21:14)
[2021-10-12] MEDS: IPRATROPIUM/ALBUTEROL SULFATE 3 ML AMPUL.NEB IH SCH ×4 (02:56→20:42)
[2021-10-12 04:54] LABS: Basophils % (Auto) 0.2 % (0.0-1.8); Eosinophils % (Auto) 0.2 % (0.0-4.3); Hematocrit 36.2 % (35.5-45.6); Hemoglobin 11.5 gm/dl (11.8-15.2); Lymphocytes # (Auto) 1.8 K/mm3 (1.2-5.4); Lymphocytes % (Auto) 11.6 % (13.4-35.0); Mean Corpuscular HGB Conc 32 % (32-34); Mean Corpuscular Volume 90 fl (84-94); Monocytes # (Auto) 1.5 K/mm3 (0.0-0.8); Monocytes % (Auto) 9.8 % (0.0-7.3); Platelet Count 336 K/mm3 (140-440); Red Blood Count 4.03 M/mm3 (3.65-5.03); Red Cell Distribution Width 18.1 % (13.2-15.2)
[2021-10-12] MEDS: oxyCODONE /ACETAMINOPHEN 5-325MG TAB PO PRN ×2 (08:14→21:15)
[2021-10-12] MEDS: BUDESONIDE 0.5 MG/2 ML NEBU IH SCH ×2 (09:45→20:42)
[2021-10-12] MEDS: predniSONE 10 MG TAB PO SCH (10:47)
[2021-10-12] MEDS: METOPROLOL SUCCINATE XL 100 MG TAB PO SCH (10:47)
[2021-10-12] MEDS: metOLazone 2.5 MG TAB PO SCH ×2 (10:47→21:15)
[2021-10-12] MEDS: ASPIRIN 81 MG TAB CHEW PO SCH (10:47)
[2021-10-12] MEDS: GABAPENTIN 300 MG CAP PO SCH ×2 (10:47→21:15)
[2021-10-12] MEDS: SODIUM FERRIC GLUCON/SUCRO 125 MG in SODIUM CHLORIDE 0.9% 100 ML IV SCH (10:48)
--- NOTE | 2021-10-12 11:18 | Progress Note ---
Assessment and Plan - Patient Problems (1) Acute on chronic HFrEF (heart failure with reduced ejection fraction) Current Visit: Yes Status: Acute (2) Acute respiratory failure with hypoxia and hypercapnia Current Visit: Yes Status: Acute (3) Bilateral lower leg cellulitis Current Visit: Yes Status: Acute (4) CHF (congestive heart failure) Current Visit: Yes Status: Acute Qualifiers: Heart failure type: combined systolic and diastolic (5) Chronic atrial fibrillation Current Visit: Yes Status: Acute (6) Renal insufficiency Current Visit: Yes Status: Acute Subjective Principal diagnosis: COPD, acute on chronic HFmrEF Interval history: feels better. on o2 3lpm Objective Vital Signs - 12hr 10/12/21 10/12/21 10/12/21 00:40 02:58 02:59 Temperature Pulse Rate Pulse Rate [ 102 H Bilateral Throughout] Respiratory 18 Rate Respiratory 22 Rate [Bilateral Throughout] Blood Pressure O2 Sat by Pulse 97 97 Oximetry 10/12/21 10/12/21 10/12/21 05:23 07:14 09:46 Temperature 97.6 F 98.0 F Pulse Rate 100 H 58 L Pulse Rate [ 102 H Bilateral Throughout] Respiratory 20 19 Rate Respiratory 20 Rate [Bilateral Throughout] Blood Pressure 147/85 141/80 O2 Sat by Pulse 94 96 Oximetry 10/12/21 09:48 Temperature Pulse Rate Pulse Rate [ Bilateral Throughout] Respiratory Rate Respiratory Rate [Bilateral Throughout] Blood Pressure O2 Sat by Pulse 96 Oximetry Constitutional: no acute distress, alert, appears uncomfortable Eyes: non-icteric ENT: oropharynx moist Neck: other (large in circumference) Ascultation: Bilateral: clear Cardiovascular: regular rate and rhythm Gastrointestinal: normoactive bowel sounds, soft, non-distended, other (obese) CBC and BMP: 10/12/21 04:09 10/12/21 04:09 ABG, PT/INR, D-dimer: ABG ABG pH 7.260 pH Units (7.350-7.450) L 10/04/21 16:30 ABG pCO2 67.7 mm Hg 10/04/21 16:30 ABG pO2 97.1 mm Hg (80.0-90.0) H 10/04/21 16:30 ABG O2 Saturation 96.8 % (95.0-99.0) 10/04/21 16:30 PT/INR, D-dimer PT 16.9 Sec. (12.2-14.9) H 10/06/21 16:54 INR 1.23 (0.87-1.13) H 10/06/21 16:54 Abnormal lab findings: Abnormal Labs 10/04/21 10/04/21 10/04/21 12:37 13:12 13:12 WBC 13.6 H RBC 3.38 L Hgb 9.7 L Hct 30.3 L MCHC RDW 17.4 H Plt Count 456 H Lymph % (Auto) 11.2 L [place] % (Auto) 11.6 H [place] # (Auto) 1.6 H Seg Neutrophils % 75.2 H Seg Neuts % (Manual) Lymphocytes % (Manual) Seg Neutrophils # 10.2 H Seg Neutrophils # Man Lymphocytes # (Manual) PT 40.7 H INR 3.58 H APTT 43.9 H ABG pH ABG pO2 ABG HCO3 ABG Hemoglobin Oxyhemoglobin Sodium Potassium Chloride Carbon Dioxide BUN Creatinine Glucose POC Glucose 112 H Magnesium Iron Total Creatine Kinase Troponin T NT-Pro-B Natriuret Pep Albumin LDL Cholesterol Direct HDL Cholesterol PTH Intact 10/04/21 10/04/21 10/04/21 13:12 13:12 13:35 WBC RBC Hgb Hct MCHC RDW Plt Count Lymph % (Auto) [place] % (Auto) [place] # (Auto) Seg Neutrophils % Seg Neuts % (Manual) Lymphocytes % (Manual) Seg Neutrophils # Seg Neutrophils # Man Lymphocytes # (Manual) PT INR APTT ABG pH 7.254 L ABG pO2 ABG HCO3 28.9 H ABG Hemoglobin 9.7 L Oxyhemoglobin 93.5 L Sodium 135 L Potassium Chloride 95.6 L Carbon Dioxide BUN 56 H Creatinine 2.1 H Glucose 107 H POC Glucose Magnesium 2.50 H Iron Total Creatine Kinase Troponin T 0.030 H NT-Pro-B Natriuret Pep 9268 H Albumin 3.4 L LDL Cholesterol Direct 47 L HDL Cholesterol 38 L PTH Intact 10/04/21 10/05/21 10/05/21 16:30 05:52 05:52 WBC RBC 3.15 L Hgb 9.2 L Hct 28.1 L MCHC RDW 17.2 H Plt Count Lymph % (Auto) [place] % (Auto) [place] # (Auto) Seg Neutrophils % Seg Neuts % (Manual) 97.0 H Lymphocytes % (Manual) 3.0 L Seg Neutrophils # Seg Neutrophils # Man 10.4 H Lymphocytes # (Manual) 0.3 L PT INR APTT ABG pH 7.260 L ABG pO2 97.1 H ABG HCO3 29.7 H ABG Hemoglobin 9.5 L Oxyhemoglobin 94.6 L Sodium 136 L Potassium 5.5 H Chloride Carbon Dioxide BUN 64 H Creatinine 2.1 H Glucose 174 H POC Glucose Magnesium Iron Total Creatine Kinase Troponin T NT-Pro-B Natriuret Pep Albumin 3.1 L LDL Cholesterol Direct HDL Cholesterol PTH Intact 10/05/21 10/05/21 10/05/21 07:13 08:33 11:42 WBC RBC Hgb Hct MCHC RDW Plt Count Lymph % (Auto) [place] % (Auto) [place] # (Auto) Seg Neutrophils % Seg Neuts % (Manual) Lymphocytes % (Manual) Seg Neutrophils # Seg Neutrophils # Man Lymphocytes # (Manual) PT INR APTT ABG pH ABG pO2 ABG HCO3 ABG Hemoglobin Oxyhemoglobin Sodium Potassium Chloride Carbon Dioxide BUN Creatinine Glucose POC Glucose 213 H 197 H Magnesium Iron 22 L Total Creatine Kinase Troponin T NT-Pro-B Natriuret Pep Albumin LDL Cholesterol Direct HDL Cholesterol PTH Intact 10/05/21 10/05/21 10/05/21 16:28 19:39 19:39 WBC RBC Hgb Hct MCHC RDW Plt Count Lymph % (Auto) [place] % (Auto) [place] # (Auto) Seg Neutrophils % Seg Neuts % (Manual) Lymphocytes % (Manual) Seg Neutrophils # Seg Neutrophils # Man Lymphocytes # (Manual) PT INR APTT ABG pH ABG pO2 ABG HCO3 ABG Hemoglobin Oxyhemoglobin Sodium Potassium Chloride Carbon Dioxide BUN Creatinine Glucose POC Glucose 181 H Magnesium Iron 16 L Total Creatine Kinase 200 H Troponin T NT-Pro-B Natriuret Pep Albumin LDL Cholesterol Direct HDL Cholesterol PTH Intact 10/05/21 10/05/21 10/06/21 19:39 Unknown 05:09 WBC RBC Hgb 9.6 L Hct 30.3 L MCHC RDW Plt Count Lymph % (Auto) [place] % (Auto) [place] # (Auto) Seg Neutrophils % Seg Neuts % (Manual) Lymphocytes % (Manual) Seg Neutrophils # Seg Neutrophils # Man Lymphocytes # (Manual) PT INR APTT ABG pH ABG pO2 ABG HCO3 ABG Hemoglobin Oxyhemoglobin Sodium Potassium Chloride Carbon Dioxide BUN 69 H Creatinine 2.2 H Glucose 214 H POC Glucose Magnesium Iron Total Creatine Kinase Troponin T NT-Pro-B Natriuret Pep Albumin LDL Cholesterol Direct HDL Cholesterol PTH Intact 109.2 H 10/06/21 10/06/21 10/06/21 08:51 11:26 13:43 WBC RBC Hgb Hct MCHC RDW Plt Count Lymph % (Auto) [place] % (Auto) [place] # (Auto) Seg Neutrophils % Seg Neuts % (Manual) Lymphocytes % (Manual) Seg Neutrophils # Seg Neutrophils # Man Lymphocytes # (Manual) PT INR APTT ABG pH ABG pO2 ABG HCO3 ABG Hemoglobin Oxyhemoglobin Sodium Potassium Chloride 97.9 L Carbon Dioxide BUN 67 H Creatinine 2.0 H Glucose 184 H POC Glucose 307 H 229 H Magnesium Iron Total Creatine Kinase Troponin T NT-Pro-B Natriuret Pep Albumin LDL Cholesterol Direct HDL Cholesterol PTH Intact 10/06/21 10/06/21 10/06/21 16:03 16:54 16:54 WBC 15.6 H RBC 3.57 L Hgb 9.9 L Hct 31.9 L MCHC 31 L RDW 17.2 H Plt Count Lymph % (Auto) [place] % (Auto) [place] # (Auto) Seg Neutrophils % Seg Neuts % (Manual) Lymphocytes % (Manual) Seg Neutrophils # Seg Neutrophils # Man Lymphocytes # (Manual) PT 16.9 H INR 1.23 H APTT ABG pH ABG pO2 ABG HCO3 ABG Hemoglobin Oxyhemoglobin Sodium Potassium Chloride Carbon Dioxide BUN Creatinine Glucose POC Glucose 295 H Magnesium Iron Total Creatine Kinase Troponin T NT-Pro-B Natriuret Pep Albumin LDL Cholesterol Direct HDL Cholesterol PTH Intact 10/06/21 10/08/21 10/08/21 16:54 05:39 05:39 WBC 11.9 H RBC 3.43 L Hgb 9.6 L Hct 30.3 L MCHC RDW 17.3 H Plt Count Lymph % (Auto) [place] % (Auto) [place] # (Auto) Seg Neutrophils % Seg Neuts % (Manual) 92.0 H Lymphocytes % (Manual) 7.0 L Seg Neutrophils # Seg Neutrophils # Man 10.9 H Lymphocytes # (Manual) 0.8 L PT INR APTT ABG pH ABG pO2 ABG HCO3 ABG Hemoglobin Oxyhemoglobin Sodium Potassium Chloride 97.1 L Carbon Dioxide BUN 74 H Creatinine 2.1 H 1.5 H Glucose 146 H POC Glucose Magnesium Iron Total Creatine Kinase Troponin T NT-Pro-B Natriuret Pep Albumin LDL Cholesterol Direct HDL Cholesterol PTH Intact 10/09/21 10/10/21 10/10/21 04:40 04:56 04:56 WBC 12.9 H RBC Hgb 11.0 L Hct MCHC 31 L RDW 17.8 H Plt Count Lymph % (Auto) [place] % (Auto) [place] # (Auto) Seg Neutrophils % Seg Neuts % (Manual) Lymphocytes % (Manual) Seg Neutrophils # Seg Neutrophils # Man Lymphocytes # (Manual) PT INR APTT ABG pH ABG pO2 ABG HCO3 ABG Hemoglobin Oxyhemoglobin Sodium Potassium Chloride 97.2 L Carbon Dioxide BUN 81 H Creatinine 1.7 H 1.5 H Glucose 138 H POC Glucose Magnesium Iron Total Creatine Kinase Troponin T NT-Pro-B Natriuret Pep Albumin LDL Cholesterol Direct HDL Cholesterol PTH Intact 10/10/21 10/10/21 10/10/21 07:40 11:39 15:34 WBC RBC Hgb Hct MCHC RDW Plt Count Lymph % (Auto) [place] % (Auto) [place] # (Auto) Seg Neutrophils % Seg Neuts % (Manual) Lymphocytes % (Manual) Seg Neutrophils # Seg Neutrophils # Man Lymphocytes # (Manual) PT INR APTT ABG pH ABG pO2 ABG HCO3 ABG Hemoglobin Oxyhemoglobin Sodium Potassium Chloride Carbon Dioxide BUN Creatinine Glucose POC Glucose 159 H 129 H 137 H Magnesium Iron Total Creatine Kinase Troponin T NT-Pro-B Natriuret Pep Albumin LDL Cholesterol Direct HDL Cholesterol PTH Intact 10/11/21 10/12/21 10/12/21 04:27 04:09 04:09 WBC 15.4 H RBC Hgb 11.5 L Hct MCHC RDW 18.1 H Plt Count Lymph % (Auto) 11.6 L [place] % (Auto) 9.8 H [place] # (Auto) 1.5 H Seg Neutrophils % 78.2 H Seg Neuts % (Manual) Lymphocytes % (Manual) Seg Neutrophils # 12.1 H Seg Neutrophils # Man Lymphocytes # (Manual) PT INR APTT ABG pH ABG pO2 ABG HCO3 ABG Hemoglobin Oxyhemoglobin Sodium Potassium Chloride 95.5 L Carbon Dioxide 33 H BUN 69 H 64 H Creatinine 1.4 H Glucose 131 H 108 H POC Glucose Magnesium Iron Total Creatine Kinase Troponin T NT-Pro-B Natriuret Pep Albumin LDL Cholesterol Direct HDL Cholesterol PTH Intact Allied health notes reviewed: nursing
--- NOTE | 2021-10-12 11:38 | Progress Note ---
Assessment and Plan 60-year-old male who is morbidly obese with history of atrial fibrillation congestive heart failure, COPD with 2 L home oxygen use, hypertension and neuropathy comes in for acute shortness of breath and respiratory distress. 10/09/2021; cont diuresis. CT LE showed no osteo and venous doppler is negative. pending wound care evaluation. will also consult vascular and order arterial doppler study. 10/10: Continue aggressive diuresis, patient completed 5 days of Rocephin, will continue to cover for possible cellulitis. Wait for vascular recommendation, pending arterial Doppler study. Follow BMP. 10/11: Wait for vascular surgery recommendation, arterial Doppler suggestive for extensive atherosclerotic disease. Renal function stable and improved. Continue to follow clinically, 10/12: Vascular surgery recommended medical management. Continue diuresis, reduced steroid, last dose of IV iron today. Continue to follow clinically. PT eval. Clinically stable possible discharge tomorrow Assessment and plan; --Acute respiratory failure with hypoxia and hypercapnia Patient has chronic respiratory failure and and is on home oxygen of 2 L. acute respiratory failure with hypoxia and hypercarbia. His ABG significant for pH of 7.254 and bicarb and CO2 of 66.8 and PO2 of 87.6. Patient initiated oxygen titrate O2 sats to more than 90% , nebulizers , tapering dose of IV steroids , empiric IV antibiotics Pulmonary evaluation and recommendations noted and appreciated -- Acute exacerbation of chronic obstructive pulmonary disease (COPD) Oxygen titrate O2 sats more than 90%, home O2 evaluation at discharge Patient on IV antibiotics IV Solu-Medrol and duo nebs [id number] and Pulmicort. Wean as tolerated, physical therapy occupational therapy and rehabilitation Pulmonary following --Acute on chronic diastolic CHF (congestive heart failure) Patient initiated on Lasix and Aldactone. Echocardiogram LVEF 55 to 60% Cardiology following Daily weights and intake and output. -- Morbid obesity with BMI of 40.0-44.9, adult Patient needs to see the bariatric surgeon Patient will be given referral to Dr. Evans who is a bariatric surgeon in this hospital --Possible obstructive sleep apnea; With CPAP/BiPAP at night and as needed during daytime, Wean as tolerated Patient needs outpatient sleep study to rule out obstructive sleep apnea -- hypertension; Continue antihypertensives As needed medications -- History of atrial fibrillation Rate controlled, continue AV evans blocking agents Anticoagulation with Xarelto Medications reconciled --Anemia Hb 9,2 Anemia work-up requested Anemia of chronic disease, closely monitor Patient placed on IV iron for total 5 days --Chronic venous stasis ulcer with bilateral lower extremity cellulitis with superficial blisters, ecchymosis bilateral lower extremity Consulted wound care, vascular surgery consulted and recommended medical management Continue supportive care -- DVT prophylaxis superficial blisters Patient is on Xarelto, SCDs --Advance care planning Disease education conducted, care plan discussed, diagnosis discussed, prognosis discussed. Patient is full code. Treatment plan , discharge planning discussed patient acknowledged understanding and agreement with care plan. +30 minutes. Strongly counseled the importance of adhering to treatment plan Subjective Date of service: 10/12/21 Principal diagnosis: COPD, acute on chronic HFmrEF Interval history: Have seen and examined the patient at the bedside Patient's chart and medications reviewed Stable leg edema Vital signs reviewed Objective - Exam Narrative Exam: General appearance: Present: no acute distress, well-nourished, obese (Morbidly obese), other (On BiPAP on admission now on nasal cannula oxygen) - EENT Eyes: Present: PERRL, EOM intact - Neck Neck: Present: supple, normal ROM - Respiratory Respiratory effort: normal Respiratory: bilateral: diminished, negative: rales, rhonchi, wheezing - Cardiovascular Rhythm: regular Heart Sounds: Present: S1 & S2 - Extremities Extremities: abnormal (Bilateral lower extremity cellulitis and edema, left more than right) Extremity abnormal: edema, erythema, other (Left great toe wound) bilateral lower extremity dressing - Abdominal General gastrointestinal: soft, non-tender, non-distended, normal bowel sounds - Integumentary Integumentary: Present: clear, warm - Psychiatric Psychiatric: appropriate mood/affect, cooperative - Neurologic Neurologic: moves all extremities - Constitutional Vitals: Vital Signs - 12hr 10/12/21 10/12/21 10/12/21 00:40 02:58 02:59 Temperature Pulse Rate Pulse Rate [ 102 H Bilateral Throughout] Respiratory 18 Rate Respiratory 22 Rate [Bilateral Throughout] Blood Pressure O2 Sat by Pulse 97 97 Oximetry 10/12/21 10/12/21 10/12/21 05:23 07:14 09:46 Temperature 97.6 F 98.0 F Pulse Rate 100 H 58 L Pulse Rate [ 102 H Bilateral Throughout] Respiratory 20 19 Rate Respiratory 20 Rate [Bilateral Throughout] Blood Pressure 147/85 141/80 O2 Sat by Pulse 94 96 Oximetry 10/12/21 09:48 Temperature Pulse Rate Pulse Rate [ Bilateral Throughout] Respiratory Rate Respiratory Rate [Bilateral Throughout] Blood Pressure O2 Sat by Pulse 96 Oximetry - Labs CBC & Chem 7: 10/12/21 04:09 10/12/21 04:09 Labs: Abnormal lab results 10/12/21 10/12/21 Range/Units 04:09 04:09 WBC 15.4 H (4.5-11.0) K/mm3 Hgb 11.5 L (11.8-15.2) gm/dl RDW 18.1 H (13.2-15.2) % Lymph % (Auto) 11.6 L (13.4-35.0) % [place] % (Auto) 9.8 H (0.0-7.3) % [place] # (Auto) 1.5 H (0.0-0.8) K/mm3 Seg Neutrophils % 78.2 H (40.0-70.0) % Seg Neutrophils # 12.1 H (1.8-7.7) K/mm3 Chloride 95.5 L (98-107) mmol/L Carbon Dioxide 33 H (22-30) mmol/L BUN 64 H (9-20) mg/dL Creatinine 1.4 H (0.8-1.3) mg/dL Glucose 108 H (75-100) mg/dL HEART Score - HEART Score Risk factors: > 3 risk factors or hx of atherosclerotic disease Troponin: Troponin T 0.026 ng/mL (0.00-0.029) 10/04/21 21:06 Troponin: 1-3x normal limit - Critical Actions Critical Actions: 4-6 pts:12-16.6% risk of adverse cardiac event. Should be admitted
[2021-10-12] MEDS: cefTRIAXone/NS 2 GM/100 ML 2 GM/100 ML BAG IV SCH (14:35)
--- NOTE | 2021-10-12 14:35 | Progress Note ---
Assessment and Plan Assessment: Acute Kidney injury, Unknown CKD Hyperkalemia Acute hypoxic respiratory failure Acute CHF Hypertension Obesity Anemia Afib Plan: -Renal function reviewed, SCr level was 1.4 today, yesterday's SCr level was 1.3 -No baseline serum creatinine available so unknown if has CKD or not -Renal US was negative for hydronephrosis -On Lasix 40 mg IV q 6 hours and metolazone 2.5 mg po BID to be given 1 hour before Lasix. -Pt was on Torsemide 100 mg po daily at home, will likely resume this upon discharge along with Metolazone -Low Iron of 16- on Ferric Gluconate 125 mcg IV daily x 8 doses, receiving dose 7 of 8 today -Elevated PTH suggestive of CKD -Renally dose all medications -Strict I/O's daily -Intake= 750 ml Output= 3950 ml (Net= -3200 ml) -Renal plan reviewed by Dr Aguilar Subjective Date of service: 10/12/21 Principal diagnosis: COPD, acute on chronic HFmrEF Interval history: Pt seen sitting up on the side of the bed, states he still has shortness of breath, but feels like he is breathing a lot better today compared to yesterday. No acute distress, no family at bedside Objective - Vital Signs Vital signs: Vital Signs - 12hr 10/12/21 10/12/21 10/12/21 02:58 02:59 05:23 Temperature 97.6 F Pulse Rate 100 H Pulse Rate [ Apical] Pulse Rate [ 102 H Bilateral Throughout] Respiratory 20 Rate Respiratory 22 Rate [Bilateral Throughout] Blood Pressure 147/85 O2 Sat by Pulse 97 94 Oximetry 10/12/21 10/12/21 10/12/21 07:14 09:46 09:48 Temperature 98.0 F Pulse Rate 58 L Pulse Rate [ Apical] Pulse Rate [ 102 H Bilateral Throughout] Respiratory 19 Rate Respiratory 20 Rate [Bilateral Throughout] Blood Pressure 141/80 O2 Sat by Pulse 96 96 Oximetry 10/12/21 12:00 Temperature Pulse Rate 105 H Pulse Rate [ 105 H Apical] Pulse Rate [ Bilateral Throughout] Respiratory Rate Respiratory Rate [Bilateral Throughout] Blood Pressure O2 Sat by Pulse 97 Oximetry - General Appearance General appearance: other (awake) EENT: ATNC Respiratory: Present: Decreased Breath Sounds Cardiology: regular, S1S2 Gastrointestinal: normoactive bowel sounds, no tenderness Integumentary: other (BLE wounds with dressings in place) Neurologic: alert and oriented x3 Musculoskeletal: other (BLE edema with dressings in place) Psychiatric: cooperative - Lab 10/12/21 04:09 10/12/21 04:09 Most recent lab results ABG pH 7.260 pH Units (7.350-7.450) L 10/04/21 16:30 ABG pCO2 67.7 mm Hg 10/04/21 16:30 ABG pO2 97.1 mm Hg (80.0-90.0) H 10/04/21 16:30 ABG HCO3 29.7 mmol/L (20.0-26.0) H 10/04/21 16:30 ABG O2 Saturation 96.8 % (95.0-99.0) 10/04/21 16:30 Calcium 9.0 mg/dL (8.4-10.2) 10/12/21 04:09 Magnesium 2.20 mg/dL (1.7-2.3) 10/08/21 05:39 Medications & Allergies - Medications Allergies/Adverse Reactions: Allergies No Known Allergies Allergy (Verified 10/09/21 08:15) Home Medications: Home Medications Medication Instructions Recorded Confirmed Last Taken Type Albuterol Sulfate [Proair 90 mcg PO PRN 10/04/21 10/09/21 Unknown History Respiclick] Aspirin [Aspirin BABY CHEW TAB] 81 mg PO QDAY 10/04/21 10/09/21 Unknown History AtorvaSTATin [Lipitor] 40 mg PO QHS 10/04/21 10/09/21 Unknown History Gabapentin 300 mg PO TID 10/04/21 10/09/21 Unknown History Losartan [Cozaar] 25 mg PO QDAY 10/04/21 10/09/21 Unknown History Rivaroxaban [Xarelto] 20 mg PO DAILY 10/04/21 10/09/21 Unknown History Budesonide/Formoterol Fumarate 2 puff INHALATION BID 10/08/21 10/09/21 Unknown History [Symbicort 80-4.5 Mcg Inhaler] Metoprolol Xl [Metoprolol 300 mg PO QDAY 10/08/21 10/09/21 Unknown History SUCCINATE ER TAB] Oxycodone HCl/Acetaminophen 1 each PO Q8H PRN 10/08/21 10/09/21 Unknown History [Percocet 10/325 mg] Torsemide [Demadex] 100 mg PO QDAY 10/08/21 10/09/21 Unknown History traZODone [Desyrel] 50 mg PO QHS 10/08/21 10/09/21 Unknown History Amoxicillin [Trimox CAP] 500 mg PO Q8H 10/09/21 10/09/21 Unknown History Cholecalciferol (Vitamin D3) 50,000 unit PO QWEEK 10/09/21 10/09/21 Unknown History [Vitamin D3 50,000UNIT CAP] Cyanocobalamin (Vitamin B-12) 1,000 mcg PO QDAY 10/09/21 10/09/21 Unknown History [B-12] Naloxone HCl [Narcan Nasal [place]] 4 mg NS PRN PRN 10/09/21 10/09/21 Unknown History Omeprazole 10 mg PO QDAY 10/09/21 10/09/21 Unknown History Vancomycin/Water For Inj (Peg) 1 gm IV Q12H 10/09/21 10/09/21 Unknown History [Vancomycin 1 Gram/200 ml Bag] Active Medications: Generic Name Dose Route Start Last Admin Trade Name Freq PRN Reason Stop Dose Admin Acetaminophen 650 mg 10/04/21 20:23 Acetaminophen 325 Mg Tab PO Q4H PRN Pain MILD(1-3)/Fever >100.5/CURTIS Albuterol 2.5 mg 10/04/21 20:32 Albuterol 2.5 Mg/3 Ml Nebu IH Q4HRT PRN Shortness Of Breath Albuterol/Ipratropium 1 ampul 10/05/21 14:00 10/12/21 09:45 Ipratropium/Albuterol Sulfate 3 Ml Ampul.Neb IH 1 ampul Q6HRT MOOKIE Administration Aspirin 81 mg 10/04/21 21:00 10/12/21 10:47 Aspirin 81 Mg Tab Chew PO 81 mg QDAY MOOKIE Administration Atorvastatin Calcium 40 mg 10/04/21 22:00 10/11/21 22:21 Atorvastatin 40 Mg Tab PO 40 mg QHS MOOKIE Administration Budesonide 0.5 mg 10/05/21 20:00 10/12/21 09:45 Budesonide 0.5 Mg/2 Ml Nebu IH 0.5 mg Q12HRT MOOKIE Administration Furosemide 40 mg 10/06/21 13:00 10/12/21 07:53 Furosemide 40 Mg/4 Ml Inj IV Not Given Q6H MOOKIE Gabapentin 300 mg 10/04/21 22:00 10/12/21 10:47 Gabapentin 300 Mg Cap PO 300 mg BID MOOKIE Administration Hydromorphone HCl 0.5 mg 10/04/21 20:24 Hydromorphone 0.5 Mg/0.5 Ml Inj IV Q3H PRN Pain , Severe (7-10) Ferric Sodium Gluconate 110 mls @ 100 mls/hr 10/06/21 13:00 10/12/21 10:48 Complex 125 mg/ Sodium IV 10/13/21 11:05 100 mls/hr Chloride DAILY MOOKIE Administration Ceftriaxone Sodium 2 gm in 100 mls @ 200 mls/hr 10/11/21 14:00 10/11/21 14:23 Rocephin/Ns 2 Gm/100 Ml IV 200 mls/hr Q24H MOOKIE Administration Metoclopramide HCl 10 mg 10/04/21 20:24 Metoclopramide 10 Mg/2 Ml Inj IV Q6H PRN Nausea And Vomiting Metolazone 2.5 mg 10/10/21 22:00 10/12/21 10:47 Metolazone 2.5 Mg Tab PO 2.5 mg BID MOOKIE Administration Metoprolol Succinate 200 mg 10/04/21 22:00 10/12/21 10:47 Metoprolol Succinate Xl 100 Mg Tab PO 200 mg QDAY MOOKIE Administration Morphine Sulfate 2 mg 10/04/21 20:24 10/11/21 10:23 Morphine 2 Mg/1 Ml Inj IV 2 mg Q4H PRN Administration Pain, Moderate (4-6) Ondansetron HCl 4 mg 10/04/21 20:23 Ondansetron 4 Mg/2 Ml Inj IV Q3H PRN Nausea And Vomiting Oxycodone/Acetaminophen 1 tab 10/04/21 20:24 10/12/21 08:14 Oxycodone /Acetaminophen 5-325mg Tab PO 1 tab Q6H PRN Administration Pain, Moderate (4-6) Prednisone 30 mg 10/12/21 10:00 10/12/21 10:47 Prednisone 10 Mg Tab PO 30 mg QDAY MOOKIE Administration Rivaroxaban 20 mg 10/06/21 17:00 10/11/21 18:21 Rivaroxaban 20 Mg Tab PO 20 mg [id number] MOOKIE Administration Protocol Sodium Chloride 10 ml 10/04/21 22:00 10/12/21 10:48 Sodium Chloride 0.9% 10 Ml Flush Syringe IV 10 ml BID MOOKIE Administration Sodium Chloride 10 ml 10/04/21 20:23 10/12/21 06:33 Sodium Chloride 0.9% 10 Ml Flush Syringe IV 10 ml PRN PRN Administration LINE FLUSH
[2021-10-12] MEDS: RIVAROXABAN 20 MG TAB PO SCH (17:29)
[2021-10-13] MEDS: FUROSEMIDE 40 MG/4 ML INJ IV SCH ×4 (02:14→20:22)
[2021-10-13] MEDS: IPRATROPIUM/ALBUTEROL SULFATE 3 ML AMPUL.NEB IH SCH ×4 (02:50→21:19)
[2021-10-13] MEDS: BUDESONIDE 0.5 MG/2 ML NEBU IH SCH ×2 (08:00→21:19)
[2021-10-13] MEDS: SODIUM FERRIC GLUCON/SUCRO 125 MG in SODIUM CHLORIDE 0.9% 100 ML IV SCH (10:50)
[2021-10-13] MEDS: ASPIRIN 81 MG TAB CHEW PO SCH (10:50)
[2021-10-13] MEDS: GABAPENTIN 300 MG CAP PO SCH ×2 (10:50→22:18)
[2021-10-13] MEDS: metOLazone 2.5 MG TAB PO SCH ×2 (10:50→22:18)
[2021-10-13] MEDS: predniSONE 10 MG TAB PO SCH (10:50)
[2021-10-13] MEDS: METOPROLOL SUCCINATE XL 100 MG TAB PO SCH (10:50)
--- NOTE | 2021-10-13 12:22 | Progress Note ---
Assessment and Plan - Patient Problems (1) Acute on chronic HFrEF (heart failure with reduced ejection fraction) Current Visit: Yes Status: Acute (2) Acute respiratory failure with hypoxia and hypercapnia Current Visit: Yes Status: Acute (3) Bilateral lower leg cellulitis Current Visit: Yes Status: Acute (4) CHF (congestive heart failure) Current Visit: Yes Status: Acute Qualifiers: Heart failure type: combined systolic and diastolic (5) Chronic atrial fibrillation Current Visit: Yes Status: Acute (6) Renal insufficiency Current Visit: Yes Status: Acute Subjective Principal diagnosis: COPD, acute on chronic HFmrEF Interval history: feels better. on o2 3lpm didnt use bipap reports pressure too hi Objective Vital Signs - 12hr 10/13/21 10/13/21 10/13/21 00:27 02:53 07:51 Temperature 96.5 F L 98.5 F Pulse Rate 106 H 71 Pulse Rate [ 114 H Bilateral Throughout] Respiratory 18 19 Rate Respiratory 20 Rate [Bilateral Throughout] Blood Pressure 107/63 111/76 O2 Sat by Pulse 93 94 Oximetry 10/13/21 11:43 Temperature Pulse Rate 96 H Pulse Rate [ Bilateral Throughout] Respiratory 18 Rate Respiratory Rate [Bilateral Throughout] Blood Pressure 125/67 O2 Sat by Pulse 96 Oximetry Constitutional: no acute distress, alert, other (obese) Eyes: non-icteric ENT: oropharynx moist Neck: other (large in circumference) Ascultation: Bilateral: clear Cardiovascular: regular rate and rhythm Gastrointestinal: normoactive bowel sounds, soft, non-distended, other (obese) Neurologic: normal mental status, non-focal exam CBC and BMP: 10/12/21 04:09 10/12/21 04:09 ABG, PT/INR, D-dimer: ABG ABG pH 7.260 pH Units (7.350-7.450) L 10/04/21 16:30 ABG pCO2 67.7 mm Hg 10/04/21 16:30 ABG pO2 97.1 mm Hg (80.0-90.0) H 10/04/21 16:30 ABG O2 Saturation 96.8 % (95.0-99.0) 10/04/21 16:30 PT/INR, D-dimer PT 16.9 Sec. (12.2-14.9) H 10/06/21 16:54 INR 1.23 (0.87-1.13) H 10/06/21 16:54 Abnormal lab findings: Abnormal Labs 10/04/21 10/04/21 10/04/21 12:37 13:12 13:12 WBC 13.6 H RBC 3.38 L Hgb 9.7 L Hct 30.3 L MCHC RDW 17.4 H Plt Count 456 H Lymph % (Auto) 11.2 L [place] % (Auto) 11.6 H [place] # (Auto) 1.6 H Seg Neutrophils % 75.2 H Seg Neuts % (Manual) Lymphocytes % (Manual) Seg Neutrophils # 10.2 H Seg Neutrophils # Man Lymphocytes # (Manual) PT 40.7 H INR 3.58 H APTT 43.9 H ABG pH ABG pO2 ABG HCO3 ABG Hemoglobin Oxyhemoglobin Sodium Potassium Chloride Carbon Dioxide BUN Creatinine Glucose POC Glucose 112 H Magnesium Iron Total Creatine Kinase Troponin T NT-Pro-B Natriuret Pep Albumin LDL Cholesterol Direct HDL Cholesterol PTH Intact 10/04/21 10/04/21 10/04/21 13:12 13:12 13:35 WBC RBC Hgb Hct MCHC RDW Plt Count Lymph % (Auto) [place] % (Auto) [place] # (Auto) Seg Neutrophils % Seg Neuts % (Manual) Lymphocytes % (Manual) Seg Neutrophils # Seg Neutrophils # Man Lymphocytes # (Manual) PT INR APTT ABG pH 7.254 L ABG pO2 ABG HCO3 28.9 H ABG Hemoglobin 9.7 L Oxyhemoglobin 93.5 L Sodium 135 L Potassium Chloride 95.6 L Carbon Dioxide BUN 56 H Creatinine 2.1 H Glucose 107 H POC Glucose Magnesium 2.50 H Iron Total Creatine Kinase Troponin T 0.030 H NT-Pro-B Natriuret Pep 9268 H Albumin 3.4 L LDL Cholesterol Direct 47 L HDL Cholesterol 38 L PTH Intact 10/04/21 10/05/21 10/05/21 16:30 05:52 05:52 WBC RBC 3.15 L Hgb 9.2 L Hct 28.1 L MCHC RDW 17.2 H Plt Count Lymph % (Auto) [place] % (Auto) [place] # (Auto) Seg Neutrophils % Seg Neuts % (Manual) 97.0 H Lymphocytes % (Manual) 3.0 L Seg Neutrophils # Seg Neutrophils # Man 10.4 H Lymphocytes # (Manual) 0.3 L PT INR APTT ABG pH 7.260 L ABG pO2 97.1 H ABG HCO3 29.7 H ABG Hemoglobin 9.5 L Oxyhemoglobin 94.6 L Sodium 136 L Potassium 5.5 H Chloride Carbon Dioxide BUN 64 H Creatinine 2.1 H Glucose 174 H POC Glucose Magnesium Iron Total Creatine Kinase Troponin T NT-Pro-B Natriuret Pep Albumin 3.1 L LDL Cholesterol Direct HDL Cholesterol PTH Intact 10/05/21 10/05/21 10/05/21 07:13 08:33 11:42 WBC RBC Hgb Hct MCHC RDW Plt Count Lymph % (Auto) [place] % (Auto) [place] # (Auto) Seg Neutrophils % Seg Neuts % (Manual) Lymphocytes % (Manual) Seg Neutrophils # Seg Neutrophils # Man Lymphocytes # (Manual) PT INR APTT ABG pH ABG pO2 ABG HCO3 ABG Hemoglobin Oxyhemoglobin Sodium Potassium Chloride Carbon Dioxide BUN Creatinine Glucose POC Glucose 213 H 197 H Magnesium Iron 22 L Total Creatine Kinase Troponin T NT-Pro-B Natriuret Pep Albumin LDL Cholesterol Direct HDL Cholesterol PTH Intact 10/05/21 10/05/21 10/05/21 16:28 19:39 19:39 WBC RBC Hgb Hct MCHC RDW Plt Count Lymph % (Auto) [place] % (Auto) [place] # (Auto) Seg Neutrophils % Seg Neuts % (Manual) Lymphocytes % (Manual) Seg Neutrophils # Seg Neutrophils # Man Lymphocytes # (Manual) PT INR APTT ABG pH ABG pO2 ABG HCO3 ABG Hemoglobin Oxyhemoglobin Sodium Potassium Chloride Carbon Dioxide BUN Creatinine Glucose POC Glucose 181 H Magnesium Iron 16 L Total Creatine Kinase 200 H Troponin T NT-Pro-B Natriuret Pep Albumin LDL Cholesterol Direct HDL Cholesterol PTH Intact 10/05/21 10/05/21 10/06/21 19:39 Unknown 05:09 WBC RBC Hgb 9.6 L Hct 30.3 L MCHC RDW Plt Count Lymph % (Auto) [place] % (Auto) [place] # (Auto) Seg Neutrophils % Seg Neuts % (Manual) Lymphocytes % (Manual) Seg Neutrophils # Seg Neutrophils # Man Lymphocytes # (Manual) PT INR APTT ABG pH ABG pO2 ABG HCO3 ABG Hemoglobin Oxyhemoglobin Sodium Potassium Chloride Carbon Dioxide BUN 69 H Creatinine 2.2 H Glucose 214 H POC Glucose Magnesium Iron Total Creatine Kinase Troponin T NT-Pro-B Natriuret Pep Albumin LDL Cholesterol Direct HDL Cholesterol PTH Intact 109.2 H 10/06/21 10/06/21 10/06/21 08:51 11:26 13:43 WBC RBC Hgb Hct MCHC RDW Plt Count Lymph % (Auto) [place] % (Auto) [place] # (Auto) Seg Neutrophils % Seg Neuts % (Manual) Lymphocytes % (Manual) Seg Neutrophils # Seg Neutrophils # Man Lymphocytes # (Manual) PT INR APTT ABG pH ABG pO2 ABG HCO3 ABG Hemoglobin Oxyhemoglobin Sodium Potassium Chloride 97.9 L Carbon Dioxide BUN 67 H Creatinine 2.0 H Glucose 184 H POC Glucose 307 H 229 H Magnesium Iron Total Creatine Kinase Troponin T NT-Pro-B Natriuret Pep Albumin LDL Cholesterol Direct HDL Cholesterol PTH Intact 10/06/21 10/06/21 10/06/21 16:03 16:54 16:54 WBC 15.6 H RBC 3.57 L Hgb 9.9 L Hct 31.9 L MCHC 31 L RDW 17.2 H Plt Count Lymph % (Auto) [place] % (Auto) [place] # (Auto) Seg Neutrophils % Seg Neuts % (Manual) Lymphocytes % (Manual) Seg Neutrophils # Seg Neutrophils # Man Lymphocytes # (Manual) PT 16.9 H INR 1.23 H APTT ABG pH ABG pO2 ABG HCO3 ABG Hemoglobin Oxyhemoglobin Sodium Potassium Chloride Carbon Dioxide BUN Creatinine Glucose POC Glucose 295 H Magnesium Iron Total Creatine Kinase Troponin T NT-Pro-B Natriuret Pep Albumin LDL Cholesterol Direct HDL Cholesterol PTH Intact 10/06/21 10/08/21 10/08/21 16:54 05:39 05:39 WBC 11.9 H RBC 3.43 L Hgb 9.6 L Hct 30.3 L MCHC RDW 17.3 H Plt Count Lymph % (Auto) [place] % (Auto) [place] # (Auto) Seg Neutrophils % Seg Neuts % (Manual) 92.0 H Lymphocytes % (Manual) 7.0 L Seg Neutrophils # Seg Neutrophils # Man 10.9 H Lymphocytes # (Manual) 0.8 L PT INR APTT ABG pH ABG pO2 ABG HCO3 ABG Hemoglobin Oxyhemoglobin Sodium Potassium Chloride 97.1 L Carbon Dioxide BUN 74 H Creatinine 2.1 H 1.5 H Glucose 146 H POC Glucose Magnesium Iron Total Creatine Kinase Troponin T NT-Pro-B Natriuret Pep Albumin LDL Cholesterol Direct HDL Cholesterol PTH Intact 10/09/21 10/10/21 10/10/21 04:40 04:56 04:56 WBC 12.9 H RBC Hgb 11.0 L Hct MCHC 31 L RDW 17.8 H Plt Count Lymph % (Auto) [place] % (Auto) [place] # (Auto) Seg Neutrophils % Seg Neuts % (Manual) Lymphocytes % (Manual) Seg Neutrophils # Seg Neutrophils # Man Lymphocytes # (Manual) PT INR APTT ABG pH ABG pO2 ABG HCO3 ABG Hemoglobin Oxyhemoglobin Sodium Potassium Chloride 97.2 L Carbon Dioxide BUN 81 H Creatinine 1.7 H 1.5 H Glucose 138 H POC Glucose Magnesium Iron Total Creatine Kinase Troponin T NT-Pro-B Natriuret Pep Albumin LDL Cholesterol Direct HDL Cholesterol PTH Intact 10/10/21 10/10/21 10/10/21 07:40 11:39 15:34 WBC RBC Hgb Hct MCHC RDW Plt Count Lymph % (Auto) [place] % (Auto) [place] # (Auto) Seg Neutrophils % Seg Neuts % (Manual) Lymphocytes % (Manual) Seg Neutrophils # Seg Neutrophils # Man Lymphocytes # (Manual) PT INR APTT ABG pH ABG pO2 ABG HCO3 ABG Hemoglobin Oxyhemoglobin Sodium Potassium Chloride Carbon Dioxide BUN Creatinine Glucose POC Glucose 159 H 129 H 137 H Magnesium Iron Total Creatine Kinase Troponin T NT-Pro-B Natriuret Pep Albumin LDL Cholesterol Direct HDL Cholesterol PTH Intact 10/11/21 10/12/21 10/12/21 04:27 04:09 04:09 WBC 15.4 H RBC Hgb 11.5 L Hct MCHC RDW 18.1 H Plt Count Lymph % (Auto) 11.6 L [place] % (Auto) 9.8 H [place] # (Auto) 1.5 H Seg Neutrophils % 78.2 H Seg Neuts % (Manual) Lymphocytes % (Manual) Seg Neutrophils # 12.1 H Seg Neutrophils # Man Lymphocytes # (Manual) PT INR APTT ABG pH ABG pO2 ABG HCO3 ABG Hemoglobin Oxyhemoglobin Sodium Potassium Chloride 95.5 L Carbon Dioxide 33 H BUN 69 H 64 H Creatinine 1.4 H Glucose 131 H 108 H POC Glucose Magnesium Iron Total Creatine Kinase Troponin T NT-Pro-B Natriuret Pep Albumin LDL Cholesterol Direct HDL Cholesterol PTH Intact Allied health notes reviewed: nursing
--- NOTE | 2021-10-13 12:54 | Progress Note ---
Assessment and Plan 60-year-old male who is morbidly obese with history of atrial fibrillation congestive heart failure, COPD with 2 L home oxygen use, hypertension and neuropathy comes in for acute shortness of breath and respiratory distress. 10/09/2021; cont diuresis. CT LE showed no osteo and venous doppler is negative. pending wound care evaluation. will also consult vascular and order arterial doppler study. 10/10: Continue aggressive diuresis, patient completed 5 days of Rocephin, will continue to cover for possible cellulitis. Wait for vascular recommendation, pending arterial Doppler study. Follow BMP. 10/11: Wait for vascular surgery recommendation, arterial Doppler suggestive for extensive atherosclerotic disease. Renal function stable and improved. Continue to follow clinically, 10/12: Vascular surgery recommended medical management. Continue diuresis, reduced steroid, last dose of IV iron today. Continue to follow clinically. PT eval. Clinically stable possible discharge tomorrow. 10/13: Patient completed IV iron therapy. Continue to adjust BiPAP setting. Patient remains on nasal cannula O2. Clinically stable, waiting on PT clearance for discharge. Wound culture grew VRE -we will change antibiotic to Levaquin p.o. daily. Assessment and plan; --Acute respiratory failure with hypoxia and hypercapnia Patient has chronic respiratory failure and and is on home oxygen of 2 L. acute respiratory failure with hypoxia and hypercarbia. His ABG significant for pH of 7.254 and bicarb and CO2 of 66.8 and PO2 of 87.6. Patient initiated oxygen titrate O2 sats to more than 90% , nebulizers , tapering dose of IV steroids , empiric IV antibiotics Pulmonary evaluation and recommendations noted and appreciated -- Acute exacerbation of chronic obstructive pulmonary disease (COPD) Oxygen titrate O2 sats more than 90%, home O2 evaluation at discharge Patient on IV antibiotics IV Solu-Medrol and duo nebs [id number] and Pulmicort. Wean as tolerated, physical therapy occupational therapy and rehabilitation Pulmonary following --Acute on chronic diastolic CHF (congestive heart failure) Patient initiated on Lasix and Aldactone. Echocardiogram LVEF 55 to 60% Cardiology following Daily weights and intake and output. -- Morbid obesity with BMI of 40.0-44.9, adult Patient needs to see the bariatric surgeon Patient will be given referral to Dr. Evans who is a bariatric surgeon in this hospital --Possible obstructive sleep apnea; With CPAP/BiPAP at night and as needed during daytime, Wean as tolerated Patient needs outpatient sleep study to rule out obstructive sleep apnea -- hypertension; Continue antihypertensives As needed medications -- History of atrial fibrillation Rate controlled, continue AV evans blocking agents Anticoagulation with Xarelto Medications reconciled --Anemia Hb 9,2 Anemia work-up requested Anemia of chronic disease, closely monitor Patient placed on IV iron for total 5 days --Chronic venous stasis ulcer with bilateral lower extremity cellulitis with superficial blisters, ecchymosis bilateral lower extremity Consulted wound care, vascular surgery consulted and recommended medical management Continue supportive care -- DVT prophylaxis superficial blisters Patient is on Xarelto, SCDs --Advance care planning Disease education conducted, care plan discussed, diagnosis discussed, prognosis discussed. Patient is full code. Treatment plan , discharge planning discussed patient acknowledged understanding and agreement with care plan. +30 minutes. Strongly counseled the importance of adhering to treatment plan Subjective Date of service: 10/13/21 Principal diagnosis: COPD, acute on chronic HFmrEF Interval history: Have seen and examined the patient at the bedside Patient's chart and medications reviewed Stable leg edema Vital signs reviewed Objective - Exam Narrative Exam: General appearance: Present: no acute distress, well-nourished, obese (Morbidly obese), other (On BiPAP on admission now on nasal cannula oxygen) - EENT Eyes: Present: PERRL, EOM intact - Neck Neck: Present: supple, normal ROM - Respiratory Respiratory effort: normal Respiratory: bilateral: diminished, negative: rales, rhonchi, wheezing - Cardiovascular Rhythm: regular Heart Sounds: Present: S1 & S2 - Extremities Extremities: abnormal (Bilateral lower extremity cellulitis and edema, left more than right) Extremity abnormal: edema, erythema, other (Left great toe wound) bilateral lower extremity dressing - Abdominal General gastrointestinal: soft, non-tender, non-distended, normal bowel sounds - Integumentary Integumentary: Present: clear, warm - Psychiatric Psychiatric: appropriate mood/affect, cooperative - Neurologic Neurologic: moves all extremities - Constitutional Vitals: Vital Signs - 12hr 10/13/21 10/13/21 10/13/21 02:53 07:51 11:43 Temperature 98.5 F Pulse Rate 71 96 H Pulse Rate [ 114 H Bilateral Throughout] Respiratory 19 18 Rate Respiratory 20 Rate [Bilateral Throughout] Blood Pressure 111/76 125/67 O2 Sat by Pulse 94 96 Oximetry 10/13/21 12:00 Temperature Pulse Rate 116 H Pulse Rate [ Bilateral Throughout] Respiratory 18 Rate Respiratory Rate [Bilateral Throughout] Blood Pressure O2 Sat by Pulse 97 Oximetry - Labs CBC & Chem 7: 10/12/21 04:09 10/12/21 04:09 HEART Score - HEART Score Risk factors: > 3 risk factors or hx of atherosclerotic disease Troponin: Troponin T 0.026 ng/mL (0.00-0.029) 10/04/21 21:06 Troponin: 1-3x normal limit - Critical Actions Critical Actions: 4-6 pts:12-16.6% risk of adverse cardiac event. Should be admitted
[2021-10-13] MEDS ORDERED: levoFLOXacin 500 MG TAB PO SCH (14:00)
--- NOTE | 2021-10-13 14:40 | Progress Note ---
Assessment and Plan Assessment: Acute Kidney injury, Unknown CKD Hyperkalemia Acute hypoxic respiratory failure Acute CHF Hypertension Obesity Anemia Afib Plan: -Labs pending today -No baseline serum creatinine available so unknown if has CKD or not -Renal US was negative for hydronephrosis -On Lasix 40 mg IV q 6 hours and metolazone 2.5 mg po BID to be given 1 hour before Lasix. -Pt was on Torsemide 100 mg po daily at home, will likely resume this upon discharge along with Metolazone -Low Iron of 16- on Ferric Gluconate 125 mcg IV daily x 8 doses, receiving dose 7 of 8 today -Elevated PTH suggestive of CKD -Renally dose all medications -Strict I/O's daily -Intake= 250 ml documented Output= 3850 ml (Net= -3600 ml) -Renal plan reviewed by Dr Aguilar Subjective Date of service: 10/13/21 Principal diagnosis: COPD, acute on chronic HFmrEF Interval history: Pt seen sitting up on the side of the bed, states he still has some shortness of breath, but improving. No acute distress, no family at bedside Objective - Vital Signs Vital signs: Vital Signs - 12hr 10/13/21 10/13/21 10/13/21 02:53 07:51 10:00 Temperature 98.5 F Pulse Rate 71 Pulse Rate [ 114 H Bilateral Throughout] Respiratory 19 Rate Respiratory 20 Rate [Bilateral Throughout] Blood Pressure 111/76 O2 Sat by Pulse 94 95 Oximetry 10/13/21 10/13/21 10/13/21 11:43 12:00 14:00 Temperature Pulse Rate 96 H 116 H Pulse Rate [ 100 H Bilateral Throughout] Respiratory 18 18 Rate Respiratory 20 Rate [Bilateral Throughout] Blood Pressure 125/67 O2 Sat by Pulse 96 97 Oximetry - General Appearance General appearance: well-developed EENT: ATNC Respiratory: Present: Decreased Breath Sounds Cardiology: S1S2 Gastrointestinal: normoactive bowel sounds, no tenderness Integumentary: other (BLE skin wounds with dressings in place) Neurologic: alert and oriented x3 Musculoskeletal: other (BLE edema noted) Psychiatric: cooperative - Lab 10/12/21 04:09 10/12/21 04:09 Most recent lab results ABG pH 7.260 pH Units (7.350-7.450) L 10/04/21 16:30 ABG pCO2 67.7 mm Hg 10/04/21 16:30 ABG pO2 97.1 mm Hg (80.0-90.0) H 10/04/21 16:30 ABG HCO3 29.7 mmol/L (20.0-26.0) H 10/04/21 16:30 ABG O2 Saturation 96.8 % (95.0-99.0) 10/04/21 16:30 Calcium 9.0 mg/dL (8.4-10.2) 10/12/21 04:09 Magnesium 2.20 mg/dL (1.7-2.3) 10/08/21 05:39 Medications & Allergies - Medications Allergies/Adverse Reactions: Allergies No Known Allergies Allergy (Verified 10/09/21 08:15) Home Medications: Home Medications Medication Instructions Recorded Confirmed Last Taken Type Albuterol Sulfate [Proair 90 mcg PO PRN 10/04/21 10/09/21 Unknown History Respiclick] Aspirin [Aspirin BABY CHEW TAB] 81 mg PO QDAY 10/04/21 10/09/21 Unknown History AtorvaSTATin [Lipitor] 40 mg PO QHS 10/04/21 10/09/21 Unknown History Gabapentin 300 mg PO TID 10/04/21 10/09/21 Unknown History Losartan [Cozaar] 25 mg PO QDAY 10/04/21 10/09/21 Unknown History Rivaroxaban [Xarelto] 20 mg PO DAILY 10/04/21 10/09/21 Unknown History Budesonide/Formoterol Fumarate 2 puff INHALATION BID 10/08/21 10/09/21 Unknown History [Symbicort 80-4.5 Mcg Inhaler] Metoprolol Xl [Metoprolol 300 mg PO QDAY 10/08/21 10/09/21 Unknown History SUCCINATE ER TAB] Oxycodone HCl/Acetaminophen 1 each PO Q8H PRN 10/08/21 10/09/21 Unknown History [Percocet 10/325 mg] Torsemide [Demadex] 100 mg PO QDAY 10/08/21 10/09/21 Unknown History traZODone [Desyrel] 50 mg PO QHS 10/08/21 10/09/21 Unknown History Amoxicillin [Trimox CAP] 500 mg PO Q8H 10/09/21 10/09/21 Unknown History Cholecalciferol (Vitamin D3) 50,000 unit PO QWEEK 10/09/21 10/09/21 Unknown History [Vitamin D3 50,000UNIT CAP] Cyanocobalamin (Vitamin B-12) 1,000 mcg PO QDAY 10/09/21 10/09/21 Unknown History [B-12] Naloxone HCl [Narcan Nasal [place]] 4 mg NS PRN PRN 10/09/21 10/09/21 Unknown History Omeprazole 10 mg PO QDAY 10/09/21 10/09/21 Unknown History Vancomycin/Water For Inj (Peg) 1 gm IV Q12H 10/09/21 10/09/21 Unknown History [Vancomycin 1 Gram/200 ml Bag] Active Medications: Generic Name Dose Route Start Last Admin Trade Name Freq PRN Reason Stop Dose Admin Acetaminophen 650 mg 10/04/21 20:23 Acetaminophen 325 Mg Tab PO Q4H PRN Pain MILD(1-3)/Fever >100.5/CURTIS Albuterol 2.5 mg 10/04/21 20:32 Albuterol 2.5 Mg/3 Ml Nebu IH Q4HRT PRN Shortness Of Breath Albuterol/Ipratropium 1 ampul 10/05/21 14:00 10/13/21 14:01 Ipratropium/Albuterol Sulfate 3 Ml Ampul.Neb IH 1 ampul Q6HRT MOOKIE Administration Aspirin 81 mg 10/04/21 21:00 10/13/21 10:50 Aspirin 81 Mg Tab Chew PO 81 mg QDAY MOOKIE Administration Atorvastatin Calcium 40 mg 10/04/21 22:00 10/12/21 21:15 Atorvastatin 40 Mg Tab PO 40 mg QHS MOOKIE Administration Budesonide 0.5 mg 10/05/21 20:00 10/13/21 08:00 Budesonide 0.5 Mg/2 Ml Nebu IH Not Given Q12HRT MOOKIE Furosemide 40 mg 10/06/21 13:00 10/13/21 07:50 Furosemide 40 Mg/4 Ml Inj IV 40 mg Q6H MOOKIE Administration Gabapentin 300 mg 10/04/21 22:00 10/13/21 10:50 Gabapentin 300 Mg Cap PO 300 mg BID MOOKIE Administration Hydromorphone HCl 0.5 mg 10/04/21 20:24 Hydromorphone 0.5 Mg/0.5 Ml Inj IV Q3H PRN Pain , Severe (7-10) Levofloxacin 500 mg 10/13/21 14:00 Levofloxacin 500 Mg Tab PO Q24HR MOOKIE Protocol Metoclopramide HCl 10 mg 10/04/21 20:24 Metoclopramide 10 Mg/2 Ml Inj IV Q6H PRN Nausea And Vomiting Metolazone 2.5 mg 10/10/21 22:00 10/13/21 10:50 Metolazone 2.5 Mg Tab PO 2.5 mg BID MOOKIE Administration Metoprolol Succinate 200 mg 10/04/21 22:00 10/13/21 10:50 Metoprolol Succinate Xl 100 Mg Tab PO 200 mg QDAY MOOKIE Administration Morphine Sulfate 2 mg 10/04/21 20:24 10/11/21 10:23 Morphine 2 Mg/1 Ml Inj IV 2 mg Q4H PRN Administration Pain, Moderate (4-6) Ondansetron HCl 4 mg 10/04/21 20:23 Ondansetron 4 Mg/2 Ml Inj IV Q3H PRN Nausea And Vomiting Oxycodone/Acetaminophen 1 tab 10/04/21 20:24 10/12/21 21:15 Oxycodone /Acetaminophen 5-325mg Tab PO 1 tab Q6H PRN Administration Pain, Moderate (4-6) Prednisone 30 mg 10/12/21 10:00 10/13/21 10:50 Prednisone 10 Mg Tab PO 30 mg QDAY MOOKIE Administration Rivaroxaban 20 mg 10/06/21 17:00 10/12/21 17:29 Rivaroxaban 20 Mg Tab PO 20 mg [id number] MOOKIE Administration Protocol Sodium Chloride 10 ml 10/04/21 22:00 10/13/21 10:50 Sodium Chloride 0.9% 10 Ml Flush Syringe IV 10 ml BID MOOKIE Administration Sodium Chloride 10 ml 10/04/21 20:23 10/13/21 02:17 Sodium Chloride 0.9% 10 Ml Flush Syringe IV 10 ml PRN PRN Administration LINE FLUSH
[2021-10-13] MEDS: oxyCODONE /ACETAMINOPHEN 5-325MG TAB PO PRN (16:47)
[2021-10-13] MEDS: RIVAROXABAN 20 MG TAB PO SCH (16:47)
[2021-10-13 17:31] LABS: Calcium 9.3 mg/dL (8.4-10.2)
[2021-10-14] MEDS: IPRATROPIUM/ALBUTEROL SULFATE 3 ML AMPUL.NEB IH SCH ×3 (02:40→18:00)
[2021-10-14] MEDS: FUROSEMIDE 40 MG/4 ML INJ IV SCH ×3 (06:25→14:09)
[2021-10-14 08:11] LABS: Calcium 9.1 mg/dL (8.4-10.2)
[2021-10-14] MEDS: BUDESONIDE 0.5 MG/2 ML NEBU IH SCH (08:32)
[2021-10-14] MEDS ORDERED: predniSONE 20 MG TAB PO SCH (10:00)
[2021-10-14] MEDS ORDERED: levoFLOXacin 750 MG TAB PO SCH (10:00)
[2021-10-14] MEDS: ASPIRIN 81 MG TAB CHEW PO SCH (10:55)
[2021-10-14] MEDS: METOPROLOL SUCCINATE XL 100 MG TAB PO SCH (10:55)
[2021-10-14] MEDS: metOLazone 2.5 MG TAB PO SCH (10:55)
[2021-10-14] MEDS: predniSONE 10 MG TAB PO SCH (10:56)
[2021-10-14] MEDS: GABAPENTIN 300 MG CAP PO SCH (10:56)
--- NOTE | 2021-10-14 11:09 | Discharge Summary ---
Providers - Providers Date of Admission: 10/04/21 20:23 Date of discharge: 10/14/21 Attending physician: RADHA NGUYEN 10/04/21 14:39 Consult to Physician [CONS] Urgent Comment: Consulting Provider: YOLETTE KASPER Physician Instructions: Reason For Exam: acute respiratory failure 10/05/21 06:33 Consult to Physician [CONS] Routine Comment: Consulting Provider: APOORVA RODRIGUEZ Physician Instructions: Reason For Exam: CHF 10/05/21 06:35 Consult to Physician [CONS] Routine Comment: Consulting Provider: ELIUD KELLEY Physician Instructions: Reason For Exam: REECE/CKD 10/05/21 19:10 Consult to Wound/ET Nurse [CONS] Routine Reason For Exam: wound eval, decubiti 10/10/21 10:06 Consult to Physician [CONS] Routine Comment: Consulting Provider: HORTENCIA CAPELLAN Physician Instructions: Reason For Exam: b/l LE cellulitis/wound 10/12/21 09:13 Physical Therapy Evaluation and Treat [CONS] Routine Comment: Reason For Exam: Debility Primary care physician: MARLIN HANKINS Hospitalization Condition: Stable Hospital course: 60-year-old male who is morbidly obese with history of atrial fibrillation conge stive heart failure, COPD with 2 L home oxygen use, hypertension and neuropathy comes in for acute shortness of breath and respiratory distress. 10/09/2021; cont diuresis. CT LE showed no osteo and venous doppler is negative. pending wound care evaluation. will also consult vascular and order arterial doppler study. 10/10: Continue aggressive diuresis, patient completed 5 days of Rocephin, will c ontinue to cover for possible cellulitis. Wait for vascular recommendation, pending arterial Doppler study. Follow BMP. 10/11: Wait for vascular surgery recommendation, arterial Doppler suggestive for extensive atherosclerotic disease. Renal function stable and improved. Continue to follow clinically, 10/12: Vascular surgery recommended medical management. Continue diuresis, reduced steroid, last dose of IV iron today. Continue to follow clinically. PT eval. Clinically stable possible discharge tomorrow. 10/13: Patient completed IV iron therapy. Continue to adjust BiPAP setting. Patient remains on nasal cannula O2. Clinically stable, waiting on PT clearance for discharge. Wound culture grew VRE -we will change antibiotic to Levaquin p.o. daily. Assessment and plan; --Acute respiratory failure with hypoxia and hypercapnia Patient has chronic respiratory failure and and is on home oxygen of 2 L. acute respiratory failure with hypoxia and hypercarbia. His ABG significant for pH of 7.254 and bicarb and CO2 of 66.8 and PO2 of 87.6. Patient initiated oxygen titrate O2 sats to more than 90% , nebulizers , tapering dose of IV steroids , empiric IV antibiotics Pulmonary evaluation and recommendations noted and appreciated -- Acute exacerbation of chronic obstructive pulmonary disease (COPD) Oxygen titrate O2 sats more than 90%, home O2 evaluation at discharge Patient on IV antibiotics IV Solu-Medrol and duo nebs [id number] and Pulmicort. Wean as tolerated, physical therapy occupational therapy and rehabilitation Pulmonary following --Acute on chronic diastolic CHF (congestive heart failure) Patient initiated on Lasix and Aldactone. Echocardiogram LVEF 55 to 60% Cardiology following Daily weights and intake and output. -- Morbid obesity with BMI of 40.0-44.9, adult Patient needs to see the bariatric surgeon Patient will be given referral to Dr. Evans who is a bariatric surgeon in this hospital --Possible obstructive sleep apnea; With CPAP/BiPAP at night and as needed during daytime, Wean as tolerated Patient needs outpatient sleep study to rule out obstructive sleep apnea -- hypertension; Continue antihypertensives As needed medications -- History of atrial fibrillation Rate controlled, continue AV evans blocking agents Anticoagulation with Xarelto Medications reconciled --Anemia Hb 9,2 Anemia work-up requested Anemia of chronic disease, closely monitor Patient placed on IV iron for total 5 days --Chronic venous stasis ulcer with bilateral lower extremity cellulitis with superficial blisters, ecchymosis bilateral lower extremity Consulted wound care, vascular surgery consulted and recommended medical management Continue supportive care -- DVT prophylaxis superficial blisters Patient is on Xarelto, SCDs --Advance care planning Disease education conducted, care plan discussed, diagnosis discussed, prognosis discussed. Patient is full code. Treatment plan , discharge planning discussed patient acknowledged understanding and agreement with care plan. +30 minutes. Strongly counseled the importance of adhering to treatment plan Disposition: HOME HEALTH CARE SERVICE Final Discharge Diagnosis (Prints w/discharge instructions): --Acute on chronic respiratory failure with hypoxia and hypercapnia. -- Acute exacerbation of chronic obstructive pulmonary disease (COPD). --Acute on chronic diastolic CHF (congestive heart failure). -- Morbid obesity with BMI of 40.0-44.9, adult. ----Possible obstructive sleep apnea with OHS. -- hypertension;. -- History of atrial fibrillation. --Anemia of CD. ----Chronic venous stasis ulcer with bilateral lower extremity cellulitis with superficial blisters, ecchymosis Time spent for discharge: 34 minutes Core Measure Documentation - Palliative Care Palliative Care/ Comfort Measures: Not Applicable - Core Measures Any of the following diagnoses?: none Exam - Physical Exam Narrative exam: General appearance: Present: no acute distress, well-nourished, obese (Morbidly obese), other (On BiPAP on admission now on nasal cannula oxygen) - EENT Eyes: Present: PERRL, EOM intact - Neck Neck: Present: supple, normal ROM - Respiratory Respiratory effort: normal Respiratory: bilateral: diminished, negative: rales, rhonchi, wheezing - Cardiovascular Rhythm: regular Heart Sounds: Present: S1 & S2 - Extremities Extremities: abnormal (Bilateral lower extremity cellulitis and edema, left more than right) Extremity abnormal: edema, erythema, other (Left great toe wound) bilateral lower extremity dressing - Abdominal General gastrointestinal: soft, non-tender, non-distended, normal bowel sounds - Integumentary Integumentary: Present: clear, warm - Psychiatric Psychiatric: appropriate mood/affect, cooperative - Neurologic Neurologic: moves all extremities - Constitutional Vitals: Temp Pulse Resp BP Pulse Ox 97.3 F L 103 H 20 122/82 95 10/14/21 08:01 10/14/21 08:01 10/14/21 08:00 10/14/21 08:01 10/14/21 08:37 Plan Activity: advance as tolerated Weight Bearing Status: Weight Bear as Tolerated Diet: low fat, low salt, diabetic Special Instructions: restrict fluid intake to (1.2L daily) Additional Instructions: Repeat BMP in one week. f/u at [facility] in one week Follow up with: MARLIN HANKINS MD [Primary Care Provider] - 3-5 Days Prescriptions: levoFLOXacin [Levaquin TAB] 750 mg PO Q24HR #7 tablet Metoprolol Xl [Metoprolol SUCCINATE ER TAB] 200 mg PO QDAY #30 tablet Oxycodone HCl/Acetaminophen [Percocet 10/325 mg] 1 each PO Q8H PRN #14 PRN Reason: Pain predniSONE 20 mg PO QDAY #5 tablet metOLazone [Zaroxolyn] 2.5 mg PO BID #60 tablet
[2021-10-14 12:02] VITALS: BP 118/57
--- NOTE | 2021-10-14 14:26 | Progress Note ---
Assessment and Plan Assessment: Acute Kidney injury, Unknown CKD Hyperkalemia Acute hypoxic respiratory failure Acute CHF Hypertension Obesity Anemia Afib Plan: -Renal function reviewed, SCr level was 1.3 today, yesterday's SCr level 1.3 -No baseline serum creatinine available so unknown if has CKD or not -Renal US was negative for hydronephrosis -On Lasix 40 mg IV q 6 hours and metolazone 2.5 mg po BID to be given 1 hour before Lasix. -Pt has discharge orders for home. Pt was on Torsemide 100 mg po daily at home, can resume torsemide 100 mg po daily with metolazone 2.5 mg po daily (1 hour before torsemide dose) upon discharge, follow up with us in the office within 1 wk for further CKD and diuretic management -S/p IV Iron -Elevated PTH suggestive of CKD -On prednisone -Renally dose all medications -Strict I/O's daily -Intake= none recorded Output= 2000 ml -Renal plan d/w Dr Aguilar Subjective Date of service: 10/14/21 Principal diagnosis: COPD, acute on chronic HFmrEF Interval history: Pt seen sitting up on the side of the bed, states he still has some shortness of breath, but improving. No acute distress, no family at bedside Objective - Vital Signs Vital signs: Vital Signs - 12hr 10/14/21 10/14/21 10/14/21 02:31 05:39 08:00 Temperature 97.1 F L Pulse Rate 94 H 94 H Pulse Rate [ Apical] Pulse Rate [ 95 H Bilateral Throughout] Respiratory 16 12 Rate Respiratory 20 Rate [Bilateral Throughout] Blood Pressure 126/78 O2 Sat by Pulse 98 95 Oximetry 10/14/21 10/14/21 10/14/21 08:01 08:37 10:00 Temperature 97.3 F L Pulse Rate 103 H 113 H Pulse Rate [ 113 H Apical] Pulse Rate [ Bilateral Throughout] Respiratory 18 Rate Respiratory Rate [Bilateral Throughout] Blood Pressure 122/82 O2 Sat by Pulse 94 95 96 Oximetry 10/14/21 12:00 Temperature 97.8 F Pulse Rate 107 H Pulse Rate [ Apical] Pulse Rate [ Bilateral Throughout] Respiratory Rate Respiratory Rate [Bilateral Throughout] Blood Pressure 118/57 O2 Sat by Pulse 93 Oximetry - General Appearance General appearance: other (awake) Respiratory: Present: Decreased Breath Sounds Cardiology: S1S2 Gastrointestinal: normoactive bowel sounds, no tenderness Integumentary: other (BLE wounds with dressings) Neurologic: alert and oriented x3 Musculoskeletal: other (BLE edema) Psychiatric: cooperative - Lab 10/12/21 04:09 10/14/21 07:33 Most recent lab results ABG pH 7.260 pH Units (7.350-7.450) L 10/04/21 16:30 ABG pCO2 67.7 mm Hg 10/04/21 16:30 ABG pO2 97.1 mm Hg (80.0-90.0) H 10/04/21 16:30 ABG HCO3 29.7 mmol/L (20.0-26.0) H 10/04/21 16:30 ABG O2 Saturation 96.8 % (95.0-99.0) 10/04/21 16:30 Calcium 9.1 mg/dL (8.4-10.2) 10/14/21 07:33 Magnesium 2.20 mg/dL (1.7-2.3) 10/08/21 05:39 Medications & Allergies - Medications Allergies/Adverse Reactions: Allergies No Known Allergies Allergy (Verified 10/09/21 08:15) Home Medications: Home Medications Medication Instructions Recorded Confirmed Last Taken Type Albuterol Sulfate [Proair 90 mcg PO PRN 10/04/21 10/09/21 Unknown History Respiclick] Aspirin [Aspirin BABY CHEW TAB] 81 mg PO QDAY 10/04/21 10/09/21 Unknown History AtorvaSTATin [Lipitor] 40 mg PO QHS 10/04/21 10/09/21 Unknown History Gabapentin 300 mg PO TID 10/04/21 10/09/21 Unknown History Rivaroxaban [Xarelto] 20 mg PO DAILY 10/04/21 10/09/21 Unknown History Budesonide/Formoterol Fumarate 2 puff INHALATION BID 10/08/21 10/09/21 Unknown History [Symbicort 80-4.5 Mcg Inhaler] Torsemide [Demadex] 100 mg PO QDAY 10/08/21 10/09/21 Unknown History traZODone [Desyrel] 50 mg PO QHS 10/08/21 10/09/21 Unknown History Cholecalciferol (Vitamin D3) 50,000 unit PO QWEEK 10/09/21 10/09/21 Unknown History [Vitamin D3 50,000UNIT CAP] Cyanocobalamin (Vitamin B-12) 1,000 mcg PO QDAY 10/09/21 10/09/21 Unknown History [B-12] Omeprazole 10 mg PO QDAY 10/09/21 10/09/21 Unknown History Metoprolol Xl [Metoprolol 200 mg PO QDAY #30 tablet 10/14/21 Unknown Rx SUCCINATE ER TAB] Oxycodone HCl/Acetaminophen 1 each PO Q8H PRN #14 10/14/21 Unknown Rx [Percocet 10/325 mg] levoFLOXacin [Levaquin TAB] 750 mg PO Q24HR #7 tablet 10/14/21 Unknown Rx metOLazone [Zaroxolyn] 2.5 mg PO BID #60 tablet 10/14/21 Unknown Rx predniSONE 20 mg PO QDAY #5 tablet 10/14/21 Unknown Rx Active Medications: Generic Name Dose Route Start Last Admin Trade Name Freq PRN Reason Stop Dose Admin Acetaminophen 650 mg 10/04/21 20:23 Acetaminophen 325 Mg Tab PO Q4H PRN Pain MILD(1-3)/Fever >100.5/CURTIS Albuterol 2.5 mg 10/04/21 20:32 Albuterol 2.5 Mg/3 Ml Nebu IH Q4HRT PRN Shortness Of Breath Albuterol/Ipratropium 1 ampul 10/05/21 14:00 10/14/21 08:32 Ipratropium/Albuterol Sulfate 3 Ml Ampul.Neb IH 1 ampul Q6HRT MOOKIE Administration Aspirin 81 mg 10/04/21 21:00 10/14/21 10:55 Aspirin 81 Mg Tab Chew PO 81 mg QDAY MOOKIE Administration Atorvastatin Calcium 40 mg 10/04/21 22:00 10/13/21 22:18 Atorvastatin 40 Mg Tab PO 40 mg QHS MOOKIE Administration Budesonide 0.5 mg 10/05/21 20:00 10/14/21 08:32 Budesonide 0.5 Mg/2 Ml Nebu IH 0.5 mg Q12HRT MOOKIE Administration Furosemide 40 mg 10/06/21 13:00 10/14/21 14:09 Furosemide 40 Mg/4 Ml Inj IV 40 mg Q6H MOOKIE Administration Gabapentin 300 mg 10/04/21 22:00 10/14/21 10:56 Gabapentin 300 Mg Cap PO 300 mg BID MOOKIE Administration Hydromorphone HCl 0.5 mg 10/04/21 20:24 Hydromorphone 0.5 Mg/0.5 Ml Inj IV Q3H PRN Pain , Severe (7-10) Levofloxacin 750 mg 10/14/21 10:00 10/14/21 10:56 Levofloxacin 750 Mg Tab PO 750 mg Q24HR MOOKIE Administration Protocol Metoclopramide HCl 10 mg 10/04/21 20:24 Metoclopramide 10 Mg/2 Ml Inj IV Q6H PRN Nausea And Vomiting Metolazone 2.5 mg 10/10/21 22:00 10/14/21 10:55 Metolazone 2.5 Mg Tab PO 2.5 mg BID MOOKIE Administration Metoprolol Succinate 200 mg 10/04/21 22:00 10/14/21 10:55 Metoprolol Succinate Xl 100 Mg Tab PO 200 mg QDAY MOOKIE Administration Morphine Sulfate 2 mg 10/04/21 20:24 10/11/21 10:23 Morphine 2 Mg/1 Ml Inj IV 2 mg Q4H PRN Administration Pain, Moderate (4-6) Ondansetron HCl 4 mg 10/04/21 20:23 Ondansetron 4 Mg/2 Ml Inj IV Q3H PRN Nausea And Vomiting Oxycodone/Acetaminophen 1 tab 10/04/21 20:24 10/13/21 16:47 Oxycodone /Acetaminophen 5-325mg Tab PO 1 tab Q6H PRN Administration Pain, Moderate (4-6) Prednisone 30 mg 10/12/21 10:00 10/14/21 10:56 Prednisone 10 Mg Tab PO 30 mg QDAY MOOKIE Administration Rivaroxaban 20 mg 10/06/21 17:00 10/13/21 16:47 Rivaroxaban 20 Mg Tab PO 20 mg [id number] MOOKIE Administration Protocol Sodium Chloride 10 ml 10/04/21 22:00 10/14/21 10:56 Sodium Chloride 0.9% 10 Ml Flush Syringe IV 10 ml BID MOOKIE Administration Sodium Chloride 10 ml 10/04/21 20:23 10/13/21 02:17 Sodium Chloride 0.9% 10 Ml Flush Syringe IV 10 ml PRN PRN Administration LINE FLUSH
[2021-10-14] MEDS: RIVAROXABAN 20 MG TAB PO SCH (16:44)
[2021-10-18] MEDS ORDERED: predniSONE 20 MG TAB PO SCH (10:00)
[2021-10-22] MEDS ORDERED: predniSONE 10 MG TAB PO SCH (10:00)
== END 2021-10-14 17:40 | disposition home health service (06) | DRG 189 ==
LOC: ED 12:28 → 4A 20:23
PROVIDERS: ADMIT Internal Medicine; ATTEND Internal Medicine
PROC: 4A033R1 Measurement of Arterial Saturation, Peripheral, Percutaneous Approach (ICD-10-PCS; principal; 2021-10-04)
DX: J96.01 Acute respiratory failure with hypoxia (principal); I11.0 Hypertensive heart disease with heart failure; J96.02 Acute respiratory failure with hypercapnia; J44.1 Chronic obstructive pulmonary disease with (acute) exacerbation; N17.9 Acute kidney failure, unspecified; I48.21 Permanent atrial fibrillation; I50.23 Acute on chronic systolic (congestive) heart failure; E66.01 Morbid (severe) obesity due to excess calories; F17.200 Nicotine dependence, unspecified, uncomplicated; D64.9 Anemia, unspecified; E87.5 Hyperkalemia; Z20.822 Contact with and (suspected) exposure to COVID-19; L03.116 Cellulitis of left lower limb; L03.115 Cellulitis of right lower limb; I48.20 Chronic atrial fibrillation, unspecified; Z79.01 Long term (current) use of anticoagulants; Z82.49 Family history of ischemic heart disease and other diseases of the circulatory system; Z83.3 Family history of diabetes mellitus; Z68.41 Body mass index [BMI] 40.0-44.9, adult; Z91.14 Patient's other noncompliance with medication regimen
CPT/HCPCS: 36415; 71045; 76770; 80048; 80053; 80061; 82550; 82565; 82607; 82747; 82803; 82962; 83550; 83735; 83880; 83970; 84484; 85007; 85014; 85018; 85025; 85027; 85610; 85730; 87040; 87076; 87116; 87186; 93005; 93306; 93925; 93970; 94640; 94660; 94760; G0378; C8929; J0456; J0696; J1644; J1940; J2270; J2310; J2916; J2920; J2930; J3370; J7030; J7040; J7512